=== PATIENT | female | born 1965 | race Caucasian/White ===

== ENCOUNTER 2016-05-04 12:54 | Emergency (ER) | payer MEDICAID ==
[2016-05-04] MEDS ORDERED: DEXAMETHASONE 10 MG/ML VIAL PO STA (13:35)
[2016-05-04] MEDS ORDERED: CHERRY SYRUP 10 ML UDC PO ONE (13:36)
[2016-05-04] MEDS ORDERED: DEXAMETHASONE 10 MG/ML VIAL ONE (13:36)
== END 2016-05-04 13:56 | disposition home or self-care (01) ==
DX: J06.9 Acute upper respiratory infection, unspecified (principal)
CPT/HCPCS: 99283; A9270

== ENCOUNTER 2016-05-28 16:15 | Outpatient (CLI) | payer MEDICAID | END 2016-05-28 16:16 | disposition home or self-care (01) | DX: R60.0 Localized edema (principal); M25.571 Pain in right ankle and joints of right foot ==

== ENCOUNTER 2016-11-29 08:00 | Outpatient (CLI) | payer MEDICAID | END 2016-11-29 08:01 | disposition home or self-care (01) | LOC: LAB.R 08:00 | PROVIDERS: ATTEND Obstetrics & Gynecology | DX: N76.0 Acute vaginitis (principal) | CPT/HCPCS: 87480; 87510; 87660 ==

== ENCOUNTER 2016-12-18 10:28 | Outpatient (CLI) | payer MEDICAID ==
[2016-12-18 10:52] LABS: BASOPHILS % (AUTO) 0.9 %; EOSINOPHILS # (AUTO) 0.2 10^3/uL (0.0-0.7); EOSINOPHILS % (AUTO) 4.6 %; HCT - HEMATOCRIT 38.5 % (37.0-47.0); HGB - HEMOGLOBIN 13.2 g/dL (12.0-16.0); LYMPHOCYTES # (AUTO) 1.8 10^3/uL (1.5-3.5); LYMPHOCYTES % (AUTO) 43.5 %; MEAN CORPUSCULAR HEMOGLOBIN 31.4 pg (27.0-31.0); MEAN CORPUSCULAR HGB CONC 34.3 g/dL (32.0-36.0); MEAN CORPUSCULAR VOLUME 91.5 fL (81.0-99.0); MEAN PLATELET VOLUME 7.5 fL (7.9-10.8); MONOCYTES # (AUTO) 0.5 10^3/uL (0.0-1.0); NEUTROPHILS # (AUTO) 1.6 10^3/uL (1.5-6.6); NUCLEATED RED BLOOD CELLS AUTO 0.1 /100WBC; RED BLOOD COUNT 4.21 10^6/uL (4.20-5.40); UNCORRECTED WHITE BLOOD COUNT 4.2 x10^3/uL; WHITE BLOOD COUNT 4.2 x10^3/uL (4.8-10.8)
[2016-12-18 11:14] LABS: ALBUMIN/GLOBULIN RATIO 1.2 (1.0-2.2); BILIRUBIN,TOTAL 0.4 mg/dL (0.2-1.0); BUN - BLOOD UREA NITROGEN 14 mg/dL (6-20); CALCIUM 9.5 mg/dL (8.5-10.3); CARBON DIOXIDE - CO2 28 mmol/L (21-32); CHLORIDE 104 mmol/L (101-111); CREATININE 0.7 mg/dL (0.4-1.0); GFR - MDRD 88 (>89); GLUCOSE 95 mg/dL (70-100); POTASSIUM 4.2 mmol/L (3.5-5.0); SODIUM 139 mmol/L (135-145); TOTAL PROTEIN 7.5 g/dL (6.7-8.2)
== END 2016-12-18 10:29 | disposition home or self-care (01) ==
LOC: LAB 10:28
PROVIDERS: ATTEND Nurse Practitioner Family
DX: M79.602 Pain in left arm (principal)
CPT/HCPCS: 36415; 80053; 85025; 85651; 86140

== ENCOUNTER 2016-12-18 10:35 | Outpatient (CLI) | payer MEDICAID ==
--- NOTE | 2016-12-18 16:25 | XRAY Report ---
TWO VIEW LEFT SHOULDER: 12/18/2016 CLINICAL INDICATION: Pain. FINDINGS: Oblique and scapular Y views of the left shoulder demonstrate mild degenerative changes of the glenohumeral and acromioclavicular joints. There is no evidence of acute fracture or dislocation . No radiopaque foreign body is seen in the soft tissues. IMPRESSION: MILD GLENOHUMERAL OSTEOARTHRITIS. :9 JOB #: [id number] EXT JOB #:[id number]
== END 2016-12-18 10:36 | disposition home or self-care (01) ==
LOC: DI 10:35
PROVIDERS: ATTEND Nurse Practitioner Family
DX: M19.012 Primary osteoarthritis, left shoulder (principal); M79.602 Pain in left arm
CPT/HCPCS: 36415; 80053; 85025; 85651; 86140

== ENCOUNTER 2016-12-19 16:56 | Outpatient (CLI) | payer MEDICAID ==
--- NOTE | 2016-12-20 10:23 | Ultrasound Report ---
PELVIC ULTRASOUND: 12/19/2016 CLINICAL INDICATION: Pain. COMPARISON: 02/24/2015 TECHNIQUE: Transabdominal pelvic ultrasound performed for global evaluation. Real-time scanning per formed and static images obtained. FINDINGS: Examination is limited, as the patient was unable to fill her bladder and could not tolera te transvaginal scanning. The uterus is anteverted, measuring 7.1 x 4.5 x 3.6 cm. The endometrial e cho complex could not be defined transabdominally. The previously noted leiomyomas are not visualize d transabdominally. The ovaries were not visualized. No free fluid is noted. IMPRESSION: LIMITED PELVIC ULTRASOUND. JOB #: [id number] EXT JOB #:[id number]
== END 2016-12-19 16:57 | disposition home or self-care (01) ==
LOC: DI 16:56
PROVIDERS: ATTEND Obstetrics & Gynecology
DX: R10.2 Pelvic and perineal pain (principal)
CPT/HCPCS: 76856

== ENCOUNTER 2017-02-10 12:34 | Emergency (ER) | payer MEDICAID ==
[2017-02-10 12:46] VITALS: BP 148/83
[2017-02-10 14:28] LABS: BASOPHILS % (AUTO) 0.8 %; EOSINOPHILS # (AUTO) 0.1 10^3/uL (0.0-0.7); EOSINOPHILS % (AUTO) 3.1 %; HGB - HEMOGLOBIN 12.9 g/dL (12.0-16.0); MEAN CORPUSCULAR HEMOGLOBIN 31.2 pg (27.0-31.0); MEAN CORPUSCULAR HGB CONC 33.9 g/dL (32.0-36.0); MEAN CORPUSCULAR VOLUME 92.1 fL (81.0-99.0); MEAN PLATELET VOLUME 7.2 fL (7.9-10.8); MONOCYTES # (AUTO) 0.4 10^3/uL (0.0-1.0); MONOCYTES % (AUTO) 9.1 %; NEUTROPHILS # (AUTO) 2.3 10^3/uL (1.5-6.6); RED BLOOD COUNT 4.13 10^6/uL (4.20-5.40); RED CELL DISTRIBUTION WIDTH 12.9 % (12.0-15.0); UNCORRECTED WHITE BLOOD COUNT 4.9 x10^3/uL; WHITE BLOOD COUNT 4.9 x10^3/uL (4.8-10.8)
[2017-02-10 14:40] LABS: ALBUMIN/GLOBULIN RATIO 1.2 (1.0-2.2); BILIRUBIN,TOTAL 0.4 mg/dL (0.2-1.0); CALCIUM 9.4 mg/dL (8.5-10.3); CREATININE 0.9 mg/dL (0.4-1.0); POTASSIUM 3.9 mmol/L (3.5-5.0); TOTAL PROTEIN 7.9 g/dL (6.7-8.2)
--- NOTE | 2017-02-10 15:06 | ED Physician Documentation ---
History of Present Illness - Stated complaint Stated Complaint: LEAKING BLADDER - Chief complaint Chief Complaint: General - History obtained from History obtained from: Patient - History of Present Illness Timing: How many weeks ago (several) Pain level max: 5 Pain level now: 5 Improved by: nothing Worsened by: nothing - Additonal information Additional information: Patient is a 51-year-old female who presents to the emergency department with diffuse lower abdominal pain and pressure. This been ongoing for several weeks. Has been seen as an outpatient for this, with no cause identified. She states that approximately 1 week ago, noticed that she was having a small amount of urine leakage from the bladder and dysuria. No fevers. No vomiting. Review of Systems Ten Systems: 10 systems reviewed and negative Constitutional: denies: Fever, Chills Ears: denies: Ear pain Nose: denies: Rhinorrhea / runny nose, Congestion Throat: denies: Sore throat Cardiac: denies: Chest pain / pressure Respiratory: denies: Cough GI: denies: Abdominal Pain, Abdominal Swelling, Nausea, Vomiting, Diarrhea : reports: Dysuria, Frequency, Hesitancy. 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, Other - Present Medications Home Medications: Ambulatory Orders Medication Instructions Recorded Confirmed Cephalexin [Keflex] 500 mg PO Q6H #28 capsule 02/10/17 - Allergies Allergies/Adverse Reactions: Allergies Allergy/AdvReac Type Severity Reaction Status Date / Time morphine Allergy Intermediate Rash Verified 02/10/17 12:46 azithromycin Allergy Mild Nausea Verified 02/10/17 12:46 [From Zithromax Z-Cordell] Sulfa (Sulfonamide Allergy Rash Verified 02/10/17 12:46 Antibiotics) - Social History Does the pt smoke?: No Smoking Status: Never smoker Does the pt drink ETOH?: No Does the pt have substance abuse?: No - Immunizations Immunizations are current?: Yes - POLST Patient has POLST: No PD ED PE NORMAL - Vitals Vital signs reviewed: Yes - General General: Alert and oriented X 3, No acute distress, Well developed/nourished - HEENT HEENT: PERRL, Moist mucous membranes - Neck Neck: Supple, no meningeal sign - Cardiac Cardiac: RRR, Strong equal pulses - Respiratory Respiratory: No respiratory distress, Clear bilaterally - Abdomen Abdomen: Soft, Non tender, Non distended - Female Female : Pt declined - Back Back: No CVA TTP, No spinal TTP - Derm Derm: Warm and dry, No rash - Neuro Neuro: Alert and oriented X 3 - Psych Psych: Normal mood, Normal affect Results - Vitals Vitals: Vital Signs - 24 hr 02/10/17 12:39 Temperature 36.6 C Heart Rate 65 Respiratory 16 Rate Blood Pressure 148/83 H O2 Saturation 98 Oxygen O2 Source Room air - Labs Labs: Laboratory Tests 02/10/17 02/10/17 02/10/17 14:20 14:20 14:35 WBC 4.9 RBC 4.13 L Hgb 12.9 Hct 38.0 MCV 92.1 MCH 31.2 H MCHC 33.9 RDW 12.9 Plt Count 208 MPV 7.2 L Neut # 2.3 Lymph # 2.0 Nye # 0.4 Eos # 0.1 Baso # 0.0 Absolute Nucleated RBC 0.00 Nucleated RBC % 0.0 Sodium 137 Potassium 3.9 Chloride 102 Carbon Dioxide 27 Anion Gap 8.0 BUN 13 Creatinine 0.9 Estimated GFR (MDRD) 65 L Glucose 93 Calcium 9.4 Total Bilirubin 0.4 AST 21 ALT 14 Alkaline Phosphatase 109 Total Protein 7.9 Albumin 4.3 Globulin 3.6 Albumin/Globulin Ratio 1.2 Lipase 38 Urine Color YELLOW Urine Clarity CLEAR Urine pH 6.0 Ur Specific [place] <=1.005 Urine Protein NEGATIVE Urine Glucose (UA) NEGATIVE Urine Ketones NEGATIVE Urine Occult Blood NEGATIVE Urine Nitrite NEGATIVE Urine Bilirubin NEGATIVE Urine Urobilinogen 0.2 (NORMAL) Ur Leukocyte Esterase MODERATE H Urine RBC 0-5 Urine WBC 6-10 H Ur Squamous Epith Cells FEW Squamous Urine Bacteria Few Ur Microscopic Review INDICATED Urine Culture Comments INDICATED Urine HCG, Qual NEGATIVE PD MEDICAL DECISION MAKING - ED course Complexity details: reviewed results, re-evaluated patient, considered differential, d/w patient, d/w sediment remediation consultant (Dr. Cary - recommends outpatient follow up.) ED course: Patient presents to the emergency department with ongoing pelvic pressure, appears to have UTI. Will treat her for this. We will have her follow-up with gynecology for further evaluation as she is currently being evaluated by them for this. Patient is well-appearing, nontoxic. Afebrile. Patient counseled regarding signs and symptoms for which I believe and urgent re-evaluation would be necessary. Patient with good understanding of and agreement to plan and is comfortable going home at this time This document was made in part using voice recognition software. While efforts are made to proofread this document, sound alike and grammatical errors may occur. Departure - Departure Disposition: Home, Self Care Clinical Impression: UTI (urinary tract infection) Qualifiers: Urinary tract infection type: acute cystitis Hematuria presence: without hematuria Qualified Code(s): N30.00 - Acute cystitis without hematuria Condition: Good Instructions: ED UTI Cystitis Female Follow-Up: Sosa Pryor ARNP [Primary Care Provider] - Prescriptions: Cephalexin [Keflex] 500 mg PO Q6H #28 capsule Comments: Take all antibioitcs until gone. Return if you wrosen. Discharge Date/Time: 02/10/17 16:14
[2017-02-10 15:15] LABS: BILIRUBIN,URINE NEGATIVE (NEGATIVE)
[2017-02-10 15:19] LABS: HCG UR QUAL NEGATIVE; UA w/ MICROSCOPIC CHARGE YES
[2017-02-10 15:27] LABS: UR CULTURE IF IND INDICATED
== END 2017-02-10 16:14 | disposition home or self-care (01) ==
LOC: ED 12:34
DX: N30.00 Acute cystitis without hematuria (principal)
CPT/HCPCS: 36415; 80053; 81001; 81003; 81025; 83690; 85025; 87086; 99283

== ENCOUNTER 2017-02-21 08:00 | Outpatient (CLI) | payer MEDICAID | END 2017-02-21 08:01 | disposition home or self-care (01) | LOC: LAB.R 08:00 | PROVIDERS: ATTEND Nurse Practitioner Family | DX: N39.0 Urinary tract infection, site not specified (principal) | CPT/HCPCS: 87086 ==

== ENCOUNTER 2017-03-13 14:35 | Outpatient (CLI) | payer MEDICAID ==
[2017-03-13 17:29] LABS: BILIRUBIN,URINE NEGATIVE (NEGATIVE)
[2017-03-13 18:07] LABS: UR CULTURE IF IND NOT INDICATED; WBC,URINE 0-3 /HPF (0-5)
== END 2017-03-13 14:36 | disposition home or self-care (01) ==
LOC: LAB.R 14:35
PROVIDERS: ATTEND Nurse Practitioner Family
DX: N39.0 Urinary tract infection, site not specified (principal)
CPT/HCPCS: 81001; 87086

== ENCOUNTER 2017-07-15 19:36 | Outpatient (CLI) | payer MEDICAID ==
--- NOTE | 2017-07-16 15:16 | XRAY Report ---
LEFT SHOULDER: 07/15/2017 HISTORY: Left shoulder pain, new numbness and tingling radiating down the left arm. COMPARISON: 12/18/2016 left shoulder x-rays. FINDINGS: Minor degenerative change glenohumeral and acromioclavicular joint, similar to prior. No new fracture, malalignment, soft tissue calcification or other abnormality. Included portions of the left chest are unremarkable. IMPRESSION: STABLE LEFT SHOULDER COMPARED WITH 12/18/2016. MINOR DEGENERATIVE CHANGES ARE AGAIN NOTED. TD: 07/16/2017 15:15 MIGEL
== END 2017-07-15 19:37 | disposition home or self-care (01) ==
LOC: DI 19:36
PROVIDERS: ATTEND Nurse Practitioner Family
DX: M19.012 Primary osteoarthritis, left shoulder (principal)

== ENCOUNTER 2017-07-25 18:24 | Emergency (ER) | payer MEDICAID ==
[2017-07-25] MEDS ORDERED: MELOXICAM 7.5 MG TABLET PO STA (19:44)
--- NOTE | 2017-07-25 19:47 | ED Physician Documentation ---
PD HPI UPPER EXT INJURY - Stated complaint Stated Complaint: LT ARM INJ - Chief complaint Chief Complaint: Ext Problem - History obtained from History obtained from: Patient - History of Present Illness Location: Other (51-year-old woman who lifted something with her left arm couple of weeks ago and has had persistent pain of the left shoulder since. She was seen in clinic and had x-rays showing some degenerative changes but no fracture. She feels like it is warm on the shoulder and she was told to come to the ER if she developed a fever. 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, Other - Present Medications Home Medications: Ambulatory Orders Medication Instructions Recorded Confirmed Cephalexin [Keflex] 500 mg PO Q6H #28 capsule 02/10/17 Meloxicam [Mobic] 7.5 mg PO BIDWM PRN #15 tablet 07/25/17 - Allergies Allergies/Adverse Reactions: Allergies Allergy/AdvReac Type Severity Reaction Status Date / Time morphine Allergy Intermediate Rash Verified 02/10/17 12:46 azithromycin Allergy Mild Nausea Verified 02/10/17 12:46 [From Zithromax Z-Cordell] Sulfa (Sulfonamide Allergy Rash Verified 02/10/17 12:46 Antibiotics) - Social History Does the pt smoke?: No Smoking Status: Never smoker Does the pt drink ETOH?: No Does the pt have substance abuse?: No - Immunizations Immunizations are current?: Yes - POLST Patient has POLST: No PD ED PE NORMAL - Vitals Vital signs reviewed: Yes - General General: Alert and oriented X 3, No acute distress - Extremities Extremities: Other (Left shoulders full range of motion and nontender, there is no warmth or redness.) - Neuro Neuro: Alert and oriented X 3, Normal speech Results - Vitals Vitals: Vital Signs - 24 hr 07/25/17 18:45 Temperature 36.8 C Heart Rate 67 Respiratory 15 Rate Blood Pressure 150/107 H O2 Saturation 100 Oxygen O2 Source Room air PD MEDICAL DECISION MAKING - ED course ED course: 51-year-old woman with left shoulder pain, she is specifically worried about infection but there is no evidence of this on examination. Departure - Departure Disposition: Home, Self Care Clinical Impression: Left shoulder pain Qualifiers: Chronicity: acute Qualified Code(s): M25.512 - Pain in left shoulder Condition: Good Record reviewed to determine appropriate education?: Yes Instructions: ED Shoulder Pain [facility] Prescriptions: Meloxicam [Mobic] 7.5 mg PO BIDWM PRN #15 tablet PRN Reason: Pain Comments: Do not wear the sling for more than a couple of days, do range of motion exercises as shown. Return if worse. Follow-up with your doctor for physical therapy as directed.
[2017-07-25 20:10] VITALS: BP 129/87
== END 2017-07-25 20:09 | disposition home or self-care (01) ==
LOC: ED 18:24
DX: M25.512 Pain in left shoulder (principal)
CPT/HCPCS: 99283; A9270

== ENCOUNTER 2017-08-05 10:14 | Outpatient (CLI) | payer MEDICAID ==
[2017-08-05 10:30] LABS: BASOPHILS # (AUTO) 0.1 10^3/uL (0.0-0.1); BASOPHILS % (AUTO) 1.3 %; EOSINOPHILS # (AUTO) 0.2 10^3/uL (0.0-0.7); EOSINOPHILS % (AUTO) 5.5 %; HGB - HEMOGLOBIN 13.2 g/dL (12.0-16.0); LYMPHOCYTES # (AUTO) 1.5 10^3/uL (1.5-3.5); LYMPHOCYTES % (AUTO) 37.9 %; MEAN CORPUSCULAR HEMOGLOBIN 31.8 pg (27.0-31.0); MEAN CORPUSCULAR HGB CONC 34.5 g/dL (32.0-36.0); MEAN CORPUSCULAR VOLUME 92.1 fL (81.0-99.0); MEAN PLATELET VOLUME 7.3 fL (7.9-10.8); MONOCYTES # (AUTO) 0.4 10^3/uL (0.0-1.0); MONOCYTES % (AUTO) 9.7 %; NEUTROPHILS # (AUTO) 1.9 10^3/uL (1.5-6.6); NEUTROPHILS % (AUTO) 45.6 %; PLT - PLATELET COUNT 203 10^3/uL (130-450); RED BLOOD COUNT 4.15 10^6/uL (4.20-5.40); WHITE BLOOD COUNT 4.1 x10^3/uL (4.8-10.8)
== END 2017-08-05 10:15 | disposition home or self-care (01) ==
LOC: LAB 10:14
PROVIDERS: ATTEND Nurse Practitioner Family
DX: M25.512 Pain in left shoulder (principal)
CPT/HCPCS: 36415; 85025; 85651; 86140

== ENCOUNTER 2017-09-19 16:11 | Outpatient (CLI) | payer MEDICAID ==
--- NOTE | 2017-09-20 13:22 | MRI Report ---
EXAM: LEFT SHOULDER MRI WITHOUT CONTRAST EXAM DATE: 09/19/2017 04:56 PM. CLINICAL HISTORY: Chronic left shoulder pain. COMPARISON: X-ray 07/15/2017. TECHNIQUE: Multiplanar, multisequence T1-weighted and fluid-sensitive sequences of the shoulder witho ut contrast. Other: None. FINDINGS: Acromioclavicular Region: The acromion is type II. Mild acromioclavicular joint osteoarthritis.Modera te sized bursal effusion. Glenohumeral Region: No subluxation. No effusion or loose bodies. The articular cartilage is unremark able. Bone Marrow: No fracture, marrow edema or bone lesions. Labrum: The labrum is unremarkable on this nonarthrographic study. Musculature/Rotator Cuff: Thickening and increased T2 signal in supraspinatus consistent with tendino sis. Similar findings in infraspinatus. Mild subscapularis tendinosis with a partial-thickness tear o f the deep fibers at the musculotendinous junction measuring approximately 4 x 4 mm. No edema or fatt y atrophy. There are small cysts in the greater tuberosity at the attachment of the rotator cuff. Biceps Tendon: The long head of the biceps tendon and biceps jean claude are intact. Other: The subcutaneous tissues are unremarkable. IMPRESSION: 1. Fluid in the subacromial bursa consistent with bursitis. 2. Moderate supraspinatus and infraspinatus tendinosis. 3. Partial-thickness tear of subscapularis. [facility] MUSCULOSKELETAL RADIOLOGY SECTION Referring Provider Line: [phone] SITE ID: [id number]
== END 2017-09-19 16:12 | disposition home or self-care (01) ==
LOC: DI 16:11
PROVIDERS: ATTEND Orthopaedic Surgery
DX: S46.012A Strain of muscle(s) and tendon(s) of the rotator cuff of left shoulder, initial encounter (principal); M75.92 Shoulder lesion, unspecified, left shoulder; M25.412 Effusion, left shoulder

== ENCOUNTER 2018-01-07 10:14 | Outpatient (CLI) | payer MEDICAID ==
[2018-01-07 11:28] LABS: HB2 TOTAL 13.9 g/dL; HEMOGLOBIN A1C 0.5 g/dL; HEMOGLOBIN A1C % 5.4 % (4.6-6.2)
== END 2018-01-07 10:15 | disposition home or self-care (01) ==
LOC: LAB 10:14
PROVIDERS: ATTEND Obstetrics & Gynecology
DX: M79.643 Pain in unspecified hand (principal)
CPT/HCPCS: 36415; 82947; 83036

== ENCOUNTER 2018-01-09 10:47 | Outpatient (CLI) | payer MEDICAID | END 2018-01-09 10:48 | disposition home or self-care (01) | LOC: LAB.R 10:47 | PROVIDERS: ATTEND Nurse Practitioner Obstetrics & Gynecology | DX: Z11.3 Encounter for screening for infections with a predominantly sexual mode of transmission (principal) | CPT/HCPCS: 87491; 87591 ==

== ENCOUNTER 2018-04-21 11:12 | Emergency (ER) | payer MEDICAID ==
[2018-04-21 11:19] VITALS: BP 147/96
--- NOTE | 2018-04-21 12:32 | XRAY Report ---
Reason: 5th digit jammed in door Procedure Date: 04/21/2018 Accession Number: [id number] / [id number] Procedure: XR - Finger(s) LT CPT Code: FULL RESULT: EXAM: LEFT FIFTH DIGIT RADIOGRAPHY EXAM DATE: 04/21/2018 12:07 PM. CLINICAL HISTORY: 5th digit jammed in door. COMPARISON: None. TECHNIQUE: 3 views. FINDINGS: Acute swan neck deformity of the fifth finger about the proximal interphalangeal joint with an osseous donor fragment along the volar side as well as lateral subluxation of the distal fragment and fracture of the distal aspect of the proximal fifth phalanx likely with intra-articular extension. IMPRESSION: Complex intra-articular fracture of the fifth left finger, likely associated ligament/tendon injury. [facility] The above findings of fifth finger fracture were discussed with ED Physician Sascha by Dr. David Nice at 12:30 hrs on 04/21/18.
[2018-04-21] MEDS ORDERED: IBUPROFEN 800 MG TABLET PO STA (12:51)
--- NOTE | 2018-04-21 12:51 | ED Physician Documentation ---
PD HPI UPPER EXT INJURY - Stated complaint Stated Complaint: L PINKY INJ - Chief complaint Chief Complaint: Ext Problem - History obtained from History obtained from: Patient - History of Present Illness Location: Left, Finger (5th) Type of injury: Other (jammed in car door) Timing - onset: Yesterday Timing - duration: Days (1) Timing - details: Abrupt onset Pain level max: 8 Pain level now: 8 Improved by: Rest, Ice, Immobilization Worsened by: Moving, Palpating Associated symptoms: Swelling. 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 HEENT: None Psych: Anxiety Musculoskeletal: None Derm: None - Past Surgical History Past Surgical History: Yes General: Hiatal hernia repair 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: 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, 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, Other - Present Medications Home Medications: Ambulatory Orders Medication Instructions Recorded Confirmed Cephalexin [Keflex] 500 mg PO Q6H #28 capsule 02/10/17 Meloxicam [Mobic] 7.5 mg PO BIDWM PRN #15 tablet 07/25/17 - Allergies Allergies/Adverse Reactions: Allergies Allergy/AdvReac Type Severity Reaction Status Date / Time morphine Allergy Intermediate Rash Verified 02/10/17 12:46 azithromycin Allergy Mild Nausea Verified 02/10/17 12:46 [From Zithromax Z-Cordell] Sulfa (Sulfonamide Allergy Rash Verified 02/10/17 12:46 Antibiotics) - Social History Does the pt smoke?: No Smoking Status: Never smoker Does the pt drink ETOH?: No Does the pt have substance abuse?: No - Immunizations Immunizations are current?: Yes - POLST Patient has POLST: No PD ED PE NORMAL - Vitals Vital signs reviewed: Yes - General General: Alert and oriented X 3, No acute distress - Derm Derm: Warm and dry - Extremities Extremities: Other (L 5th digit - diffuse swelling, TTP over the PIP joint. FROM present, but with pain. NVI) - Neuro Neuro: Alert and oriented X 3 - Psych Psych: Normal mood, Normal affect Results - Vitals Vitals: Vital Signs - 24 hr 04/21/18 11:15 Temperature 35.5 C L Heart Rate 72 Respiratory 18 Rate Blood Pressure 147/96 H O2 Saturation 97 Oxygen O2 Source Room air - Rads (name of study) L finger xray Radiology: Prelim report reviewed, EMP read contemporaneously, See rad report (Complex intra-articular fracture of the fifth left finger, likely associated ligament/tendon injury. ) PD MEDICAL DECISION MAKING - ED course Complexity details: reviewed results, re-evaluated patient, considered differential, d/w patient ED course: 52-year-old female with a left fifth digit fracture. Placed in a splint. Tolerated well. Neurovascular intact. Informed that she may have ligamentous or tendon damage and will need a repeat evaluation after the swelling has decreased. Patient counseled regarding signs and symptoms for which I believe and urgent re-evaluation would be necessary. Patient with good understanding of and agreement to plan and is comfortable going home at this time This document was made in part using voice recognition software. While efforts are made to proofread this document, sound alike and grammatical errors may occur. Departure - Departure Disposition: 01 Home, Self Care Clinical Impression: Finger fracture, left Qualifiers: Encounter type: initial encounter Finger: little finger Fracture type: closed Phalanx: unspecified phalanx Fracture alignment: nondisplaced Qualified Code(s): S62.607A - Fracture of unspecified phalanx of left little finger, initial encounter for closed fracture Condition: Good Instructions: ED Fx Finger Closed Follow-Up: Sosa Pryor ARNP [Primary Care Provider] - Within 1 week [facility] [Provider Group] - Within 1 week Comments: Return if you worsen. You may have ligament damage as well and should follow up with orthopedics. Keep the splint on until released by orthopedics Discharge Date/Time: 04/21/18 13:04
== END 2018-04-21 13:04 | disposition home or self-care (01) ==
LOC: ED 11:12
DX: S62.607A Fracture of unspecified phalanx of left little finger, initial encounter for closed fracture (principal); W23.0XXA Caught, crushed, jammed, or pinched between moving objects, initial encounter
CPT/HCPCS: 29130; 73140; 99282; 99283; A9270

== ENCOUNTER 2018-07-05 06:17 | Emergency (ER) | payer MEDICAID ==
[2018-07-05 06:26] VITALS: BP 185/102
[2018-07-05] MEDS ORDERED: DEXAMETHASONE 10 MG/ML VIAL PO STA (07:19)
--- NOTE | 2018-07-05 07:23 | ED Physician Documentation ---
PD HPI URI - Stated complaint Stated Complaint: DIFF BREATHING/SWALLOWING/TOOTH PX - Chief complaint Chief Complaint: Resp - History obtained from History obtained from: Patient - History of Present Illness Timing - onset: How many days ago (4) Timing duration: Days (4) Timing details: Still present Associated symptoms: Fever, Nasal congestion, Sore throat, Dry cough Contributing factors: Sick contact () Similar symptoms before: Has not had sx before - Treatment prior to arrival Treatment prior to arrival: Ibuprophen at 3am. - Additional information Additional information: The patient is a 52-year-old female who complains of sore throat for the past 4 days. It is worse at night, and she feels like she is gasping for air. She reports congestion, fever, nonproductive cough, headache, and myalgias. Her was sick with similar symptoms last week, and is currently getting better. The patient had a tooth infection for which she was on penicillin for 2 weeks. Last week she underwent extraction of the lower molar that was infected. Review of Systems Constitutional: reports: Fever, Chills, Myalgias Eyes: denies: Irritation Ears: denies: Ear pain Nose: reports: Congestion Throat: reports: Sore throat Cardiac: denies: Chest pain / pressure Respiratory: reports: Dyspnea, Cough GI: denies: Abdominal Pain, Nausea, Vomiting : denies: Dysuria Skin: denies: Rash Musculoskeletal: denies: Extremity swelling Neurologic: reports: Headache. 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, Other - Present Medications Home Medications: Ambulatory Orders Medication Instructions Recorded Confirmed Cephalexin [Keflex] 500 mg PO Q6H #28 capsule 02/10/17 Meloxicam [Mobic] 7.5 mg PO BIDWM PRN #15 tablet 07/25/17 - Allergies Allergies/Adverse Reactions: Allergies Allergy/AdvReac Type Severity Reaction Status Date / Time morphine Allergy Intermediate Rash Verified 02/10/17 12:46 azithromycin Allergy Mild Nausea Verified 02/10/17 12:46 [From Zithromax Z-Cordell] Sulfa (Sulfonamide Allergy Rash Verified 02/10/17 12:46 Antibiotics) - Social History Does the pt smoke?: No Smoking Status: Never smoker Does the pt drink ETOH?: Yes Does the pt have substance abuse?: No - Immunizations Immunizations are current?: Yes - POLST Patient has POLST: No PD ED PE NORMAL - Vitals Vital signs reviewed: Yes (hypertensive) - General General: Alert and oriented X 3, Well developed/nourished - HEENT HEENT: Atraumatic, Ears normal, Pharynx benign, Other (Right lower molar tooth extraction site healing as expected.) - Neck Neck: Supple, no meningeal sign, No adenopathy - Cardiac Cardiac: RRR, No murmur - Respiratory Respiratory: No respiratory distress, Clear bilaterally - Abdomen Abdomen: Soft, Non tender, Other (rotund abdomen) - Back Back: No CVA TTP - Derm Derm: No rash - Extremities Extremities: No edema, No calf tenderness / cord - Neuro Neuro: Alert and oriented X 3, No motor deficit, Normal speech Results - Vitals Vitals: Vital Signs - 24 hr 07/05/18 07/05/18 06:21 06:26 Temperature 36.6 C Heart Rate 84 84 Respiratory 18 Rate Blood Pressure 185/102 H O2 Saturation 99 Oxygen O2 Source Room air - Labs Labs: Laboratory Tests 07/05/18 07/05/18 06:46 06:46 Influenza A (Rapid) Negative Influenza B (Rapid) Negative Group A Strep Rapid Negative - Rads (name of study) CXR Radiology: Prelim report reviewed, EMP read contemporaneously, See rad report (No acute cardiopulmonary abnormality demonstrated.) PD MEDICAL DECISION MAKING - ED course Complexity details: reviewed old records, reviewed results, re-evaluated patient, considered differential, d/w patient, d/w family ED course: The patient's presentation is most consistent with viral upper respiratory infection. Her clinical presentation does not suggest meningitis, pneumonitis, otitis media, or acute pharyngitis. Strep screen and influenza swab are negative. Chest x-ray reveals no acute infiltrate or effusion. Treatment in the emergency department included administration of Dexamethasone 10 mg orally. I discussed with her and her the expected course of illness, symptomatic treatment and outpatient follow-up, as well as potentially worrisome signs or symptoms that should prompt reevaluation in the emergency department. Departure - Departure Disposition: 01 Home, Self Care Clinical Impression: Viral upper respiratory infection Condition: Stable Instructions: ED Upper Resp Infec No Abx Tx Follow-Up: [facility] [Provider Group] Comments: Your symptoms are most consistent with a viral upper respiratory infection. Antibiotics are not clinically indicated for this type of viral infection. Treatment should be geared toward managing symptoms: Drink plenty of fluids. Use Tylenol or ibuprofen as needed for fever or discomfort. Wash your hands frequently, and cover your cough. Follow up with your primary physician, or return to the emergency department, if not improving within 1-2 weeks. Return to the emergency department if you develop increasing difficulty breathing, or otherwise worsening symptoms.
--- NOTE | 2018-07-05 07:29 | XRAY Report ---
Reason: Cough Procedure Date: 07/05/2018 Accession Number: [id number] / [id number] Procedure: XR - Chest 2 View X-Ray CPT Code: 48749 FULL RESULT: EXAM: CHEST RADIOGRAPHY EXAM DATE: 07/05/2018 07:03 AM. CLINICAL HISTORY: Throat pain for 1 week, productive cough. COMPARISON: 05/09/2015 3:36 PM. TECHNIQUE: 2 views. FINDINGS: Lungs/Pleura: No focal opacities evident. No pleural effusion. No pneumothorax. Normal volumes. Mediastinum: Heart and mediastinal contours are unremarkable. Other: Right-sided chronic calcific rotator cuff tendinitis. IMPRESSION: No acute cardiopulmonary abnormality demonstrated. [facility]
== END 2018-07-05 08:06 | disposition home or self-care (01) ==
LOC: ED 06:17
DX: J06.9 Acute upper respiratory infection, unspecified (principal)
CPT/HCPCS: 71046; 87070; 87275; 87276; 87430; 99283

== ENCOUNTER 2018-07-14 15:20 | Emergency (ER) | payer MEDICAID ==
[2018-07-14 15:27] VITALS: BP 142/81
--- NOTE | 2018-07-14 15:38 | ED Physician Documentation ---
PD HPI UPPER EXT INJURY - Stated complaint Stated Complaint: LT FINGER INJ - Chief complaint Chief Complaint: Ext Problem - History obtained from History obtained from: Patient - History of Present Illness Location: Left, Finger (5th digit) Type of injury: Blunt / blow Where injury occurred: Home Timing - onset: How many days ago (3) Timing - duration: Days (3) Timing - details: Abrupt onset, Still present Improved by: Rest, Immobilization Worsened by: Moving, Palpating Associated symptoms: Swelling, Discolored. No: Weakness Contributing factors: No: Anticoagulated Similar symptoms before: Diagnosis (5th digit fracture that did not heal right.) Recently seen: Not recently seen - Additonal information Additional information: 52-year-old female has had an injury to her left fifth digit back in February and this did not heal properly. She has had some deformity to the finger and is been in physical therapy. She is struck this finger again about 3 days ago felt a crack to it and now has some increased swelling and discoloration. She tried to go back to physical therapy and the physical therapist asked her to come to the emergency department to get x-rays done. Review of Systems Constitutional: denies: Fever Eyes: denies: Decreased vision Ears: denies: Ear pain Nose: denies: Congestion Respiratory: denies: Cough GI: denies: Vomiting PD PAST MEDICAL HISTORY - Past Medical History Cardiovascular: None Respiratory: Pneumonia Neuro: None Endocrine/Autoimmune: None GI: None, Hiatal hernia FLARER: None : Frequency HEENT: None Psych: Anxiety Musculoskeletal: None Derm: None - Past Surgical History Past Surgical History: Yes General: Hiatal hernia repair Ortho: Other /FLARER: section, 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, Other - Present Medications Home Medications: Ambulatory Orders Medication Instructions Recorded Confirmed Cephalexin [Keflex] 500 mg PO Q6H #28 capsule 02/10/17 Meloxicam [Mobic] 7.5 mg PO BIDWM PRN #15 tablet 07/25/17 - Allergies Allergies/Adverse Reactions: Allergies Allergy/AdvReac Type Severity Reaction Status Date / Time morphine Allergy Intermediate Rash Verified 07/14/18 15:23 azithromycin Allergy Mild Nausea Verified 07/14/18 15:23 [From Zithromax Z-Cordell] Sulfa (Sulfonamide Allergy Rash Verified 07/14/18 15:23 Antibiotics) - Social History Does the pt smoke?: No Smoking Status: Never smoker Does the pt drink ETOH?: Yes Does the pt have substance abuse?: No - Immunizations Immunizations are current?: Yes - POLST Patient has POLST: No PD ED PE NORMAL - Vitals Vital signs reviewed: Yes (hypertensive ) - General General: Alert and oriented X 3, No acute distress, Well developed/nourished - HEENT HEENT: Atraumatic, PERRL, EOMI - Neck Neck: Supple, no meningeal sign - Respiratory Respiratory: No respiratory distress - Derm Derm: Normal color, Warm and dry, No rash - Extremities Extremities: Other (There is a deformity to the 5th digit at the PIP joint with ulnar deviation of the distal component. Distal n/v is intact ) - Neuro Neuro: Alert and oriented X 3, franchise consultant 2-12 intact, No motor deficit, No sensory deficit, Normal speech Eye Opening: Spontaneous Motor: Obeys Commands Verbal: Oriented GCS Score: 15 - Psych Psych: Normal mood, Normal affect Results - Vitals Vitals: Vital Signs - 24 hr 07/14/18 15:23 Temperature 36.6 C Heart Rate 87 Respiratory 16 Rate Blood Pressure 142/81 H O2 Saturation 95 Oxygen O2 Source Room air - Rads (name of study) fingers Radiology: Prelim report reviewed (Impression: No acute fracture identified. Hyperextension of the fifth proximal interphalangeal joint is similar in appearance.), EMP read indepedently, See rad report Procedures - Splint (location) left hand Splint applied by: Tech Type of splint: Fiberglass, Ulnar gutter Other: Patient tolerated well, No complications, Neurovascular intact, Good alignment PD MEDICAL DECISION MAKING - ED course Complexity details: reviewed results, re-evaluated patient, considered differential, d/w patient ED course: 52 y/o female with a left 5th digit injury with deformity after a fracture has re-injured her finger and there is no evidence for acute fracture. She is placed into an ulnar gutter splint and will follow up with ortho as planned. Departure - Departure Disposition: 01 Home, Self Care Clinical Impression: Sprain of little finger Qualifiers: Encounter type: initial encounter Sprain of finger site: interphalangeal joint Laterality: left Qualified Code(s): S63.637A - Sprain of interphalangeal joint of left little finger, initial encounter Condition: Stable Instructions: ED Sprain Finger Follow-Up: Siggard,Kipley J, MD [Primary Care Provider] -
[2018-07-14] MEDS: ACETAMINOPHEN 325 MG TABLET PO STA (15:42)
--- NOTE | 2018-07-14 16:06 | XRAY Report ---
Reason: 5th digit deformity Procedure Date: 07/14/2018 Accession Number: [id number] / [id number] Procedure: XR - Finger(s) LT CPT Code: FULL RESULT: EXAM: LEFT FIFTH DIGIT RADIOGRAPHY EXAM DATE: 07/14/2018 03:52 PM. CLINICAL HISTORY: 5th digit deformity. COMPARISON: FINGER(S) LT 04/21/2018 11:42 AM. TECHNIQUE: 3 views. FINDINGS: No acute fracture identified. No healing changes. There is hyperextension at the fifth proximal interphalangeal joint and mild flexion at the fifth distal interphalangeal joint, similar to prior. Severe PIP joint space narrowing with osteophyte formation. No dislocation. IMPRESSION: No acute fracture identified. Hyperextension of the fifth proximal interphalangeal joint is similar in appearance. RADIA
== END 2018-07-14 17:03 | disposition home or self-care (01) ==
LOC: ED 15:20
DX: S63.637A Sprain of interphalangeal joint of left little finger, initial encounter (principal); W22.8XXA Striking against or struck by other objects, initial encounter; Y92.009 Unspecified place in unspecified non-institutional (private) residence as the place of occurrence of the external cause
CPT/HCPCS: 29125; 73140; 99282; 99283

== ENCOUNTER 2018-08-25 17:48 | Outpatient (CLI) | payer MEDICAID ==
[2018-08-25 18:11] LABS: BASOPHILS % (AUTO) 0.6 %; EOSINOPHILS # (AUTO) 0.2 10^3/uL (0.0-0.7); EOSINOPHILS % (AUTO) 4.4 %; HGB - HEMOGLOBIN 12.8 g/dL (12.0-16.0); LYMPHOCYTES # (AUTO) 1.6 10^3/uL (1.5-3.5); LYMPHOCYTES % (AUTO) 35.2 %; MEAN CORPUSCULAR HEMOGLOBIN 31.6 pg (27.0-31.0); MEAN CORPUSCULAR HGB CONC 33.2 g/dL (32.0-36.0); MEAN CORPUSCULAR VOLUME 95.1 fL (81.0-99.0); MEAN PLATELET VOLUME 7.2 fL (7.9-10.8); MONOCYTES # (AUTO) 0.4 10^3/uL (0.0-1.0); MONOCYTES % (AUTO) 7.9 %; NEUTROPHILS # (AUTO) 2.4 10^3/uL (1.5-6.6); NEUTROPHILS % (AUTO) 51.9 %; PLT - PLATELET COUNT 216 10^3/uL (130-450); RED BLOOD COUNT 4.06 10^6/uL (4.20-5.40); RED CELL DISTRIBUTION WIDTH 12.8 % (12.0-15.0); WHITE BLOOD COUNT 4.6 x10^3/uL (4.8-10.8)
== END 2018-08-25 17:49 | disposition home or self-care (01) ==
LOC: LAB 17:48
PROVIDERS: ATTEND Nurse Practitioner
DX: J32.9 Chronic sinusitis, unspecified (principal)
CPT/HCPCS: 36415; 85025

== ENCOUNTER 2018-11-24 10:16 | Emergency (ER) | payer MEDICAID ==
[2018-11-24] MEDS ORDERED: SODIUM CHLORIDE 0.9% 1,000 ML IV ONE (10:50)
--- NOTE | 2018-11-24 10:53 | ED Physician Documentation ---
History of Present Illness - Stated complaint Stated Complaint: FEVER/WEAKNESS - Chief complaint Chief Complaint: General - History obtained from History obtained from: Patient - History of Present Illness Timing: How many weeks ago (1) Pain level max: 4 Pain level now: 3 Improved by: nothing Worsened by: nothing - Additonal information Additional information: Patient is a 53-year-old female who states that she has been having generalized weakness for the past week. She states that she is having fevers at home, but states that her body temperature has actually been low with a T-max of 97.5. She states that she had a tooth pulled 2 months ago on the right lower mandible. She states she was supposed to see someone about her sinuses, but never followed up. She states she does have some sinus congestion. No coughing. 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 She states that "she does not know what is going on". She states that she just does not feel well and feels very weak. Review of Systems Ten Systems: 10 systems reviewed and negative Constitutional: denies: Chills, Myalgias Ears: denies: Ear pain Nose: reports: Congestion. denies: Sinus pressure / pain Throat: denies: Dental pain / toothache, Sore throat Cardiac: denies: Chest pain / pressure Respiratory: denies: Dyspnea, Cough, Wheezing GI: denies: Vomiting, Diarrhea : denies: Dysuria, Frequency, Hesitancy Skin: denies: Rash Musculoskeletal: reports: Extremity pain (Left shoulder pain is chronic and un changed). 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 : Frequency HEENT: None Psych: Anxiety Musculoskeletal: None Derm: None - Past Surgical History Past Surgical History: Yes General: Hiatal hernia repair Ortho: Other /CONTENT DEVELOPER: section, 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, Other - Present Medications Home Medications: Ambulatory Orders Medication Instructions Recorded Confirmed Cephalexin [Keflex] 500 mg PO Q6H #28 capsule 02/10/17 Meloxicam [Mobic] 7.5 mg PO BIDWM PRN #15 tablet 07/25/17 Amox/Clav 875/125 [Augmentin] 1 each PO Q12H #20 tablet 11/24/18 - Allergies Allergies/Adverse Reactions: Allergies Allergy/AdvReac Type Severity Reaction Status Date / Time morphine Allergy Intermediate Rash Verified 11/24/18 10:23 azithromycin Allergy Mild Nausea Verified 11/24/18 10:23 [From Zithromax Z-Cordell] Sulfa (Sulfonamide Allergy Rash Verified 11/24/18 10:23 Antibiotics) - Social History Does the pt smoke?: No Smoking Status: Never smoker Does the pt drink ETOH?: Yes Does the pt have substance abuse?: No - Immunizations Immunizations are current?: Yes - POLST Patient has POLST: No PD ED PE NORMAL - Vitals Vital signs reviewed: Yes - General General: Alert and oriented X 3, No acute distress, Well developed/nourished - HEENT HEENT: Atraumatic, PERRL, Ears normal, Moist mucous membranes, Pharynx benign, Other (The side of her pulled tooth appears without infection. No swelling. Mild tenderness over the frontal sinuses) - Neck Neck: Supple, no meningeal sign, No bony TTP - Cardiac Cardiac: RRR, No murmur, Strong equal pulses - Respiratory Respiratory: No respiratory distress, Clear bilaterally - Abdomen Abdomen: Normal bowel sounds, Soft, Non tender, Non distended - Back Back: No spinal TTP - Derm Derm: Warm and dry, No rash - Extremities Extremities: No deformity, No tenderness to palpate, Normal ROM s pain, Other (Moving the left shoulder well. No redness. No swelling. No signs of infection.) - Neuro Neuro: Alert and oriented X 3, privacy attorney 2-12 intact, No motor deficit, No sensory deficit, Normal speech - Psych Psych: Normal mood, Normal affect Results - Vitals Vitals: Vital Signs - 24 hr 11/24/18 11/24/18 10:20 12:42 Temperature 36.4 C L 36.6 C Heart Rate 65 63 Respiratory 19 19 Rate Blood Pressure 190/105 H 150/96 H O2 Saturation 98 98 Oxygen O2 Source Room air - Labs Labs: Laboratory Tests 11/24/18 11/24/18 11/24/18 11:04 11:04 11:24 WBC 4.1 L RBC 4.10 L Hgb 12.9 Hct 39.1 MCV 95.4 MCH 31.5 H MCHC 33.0 RDW 12.6 Plt Count 187 MPV 9.1 Neut # (Auto) 2.1 Lymph # (Auto) 1.4 L [place] # (Auto) 0.4 Eos # (Auto) 0.1 Baso # (Auto) 0.0 Absolute Nucleated RBC 0.00 Nucleated RBC % 0.0 Sodium 140 Potassium 4.1 Chloride 104 Carbon Dioxide 24 Anion Gap 12.0 BUN 17 Creatinine 0.7 Estimated GFR (MDRD) 87 L Glucose 92 Calcium 9.5 Total Bilirubin 0.6 AST 19 ALT 13 Alkaline Phosphatase 84 Total Protein 7.5 Albumin 3.8 Globulin 3.7 Albumin/Globulin Ratio 1.0 Lipase 50 Urine Color YELLOW Urine Clarity CLEAR Urine pH 5.5 Ur Specific [place] <=1.005 Urine Protein NEGATIVE Urine Glucose (UA) NEGATIVE Urine Ketones NEGATIVE Urine Occult Blood NEGATIVE Urine Nitrite NEGATIVE Urine Bilirubin NEGATIVE Urine Urobilinogen 0.2 (NORMAL) Ur Leukocyte Esterase NEGATIVE Ur Microscopic Review NOT INDICATED Urine Culture Comments NOT INDICATED PD MEDICAL DECISION MAKING - ED course Complexity details: reviewed results, re-evaluated patient, considered differential, d/w patient ED course: Unclear etiology of her symptoms. We will trial her on antibiotics for possible sinus infection versus dental infection? We will follow-up with her PCP and dentist for further care. No acute laboratory abnormalities. Patient counseled regarding signs and symptoms for which I believe and urgent re-evaluation would be necessary. Patient with good understanding of and agreement to plan and is comfortable going home at this time This document was made in part using voice recognition software. While efforts are made to proofread this document, sound alike and grammatical errors may occur. Departure - Departure Disposition: 01 Home, Self Care Clinical Impression: Sinus infection Qualifiers: Sinusitis location: unspecified location Chronicity: acute Recurrence: non- recurrent Qualified Code(s): J01.90 - Acute sinusitis, unspecified Condition: Good Instructions: ED Sinusitis Abx Tx Follow-Up: Daina Stern DNP [Primary Care Provider] - Within 1 week Prescriptions: Amox/Clav 875/125 [Augmentin] 1 each PO Q12H #20 tablet Comments: Take all antibiotics until gone. Return if you worsen. Follow-up with your doctor for further care. Discharge Date/Time: 11/24/18 12:42
[2018-11-24 11:13] LABS: BASOPHILS % (AUTO) 0.7 %; EOSINOPHILS # (AUTO) 0.1 10^3/uL (0.0-0.7); EOSINOPHILS % (AUTO) 3.4 %; HGB - HEMOGLOBIN 12.9 g/dL (12.0-16.0); LYMPHOCYTES # (AUTO) 1.4 10^3/uL (1.5-3.5); LYMPHOCYTES % (AUTO) 34.2 %; MEAN CORPUSCULAR HEMOGLOBIN 31.5 pg (27.0-31.0); MEAN CORPUSCULAR VOLUME 95.4 fL (81.0-99.0); MEAN PLATELET VOLUME 9.1 fL (7.9-10.8); MONOCYTES # (AUTO) 0.4 10^3/uL (0.0-1.0); MONOCYTES % (AUTO) 10.1 %; NEUTROPHILS # (AUTO) 2.1 10^3/uL (1.5-6.6); NEUTROPHILS % (AUTO) 51.1 %; PLT - PLATELET COUNT 187 10^3/uL (130-450); RED CELL DISTRIBUTION WIDTH 12.6 % (12.0-15.0); WHITE BLOOD COUNT 4.1 x10^3/uL (4.8-10.8)
[2018-11-24 11:24] LABS: ALBUMIN 3.8 g/dL (3.2-5.5); BILIRUBIN,TOTAL 0.6 mg/dL (0.2-1.0); CALCIUM 9.5 mg/dL (8.5-10.3); CREATININE 0.7 mg/dL (0.4-1.0); TOTAL PROTEIN 7.5 g/dL (6.7-8.2)
[2018-11-24 11:48] LABS: BILIRUBIN,URINE NEGATIVE (NEGATIVE); GLUCOSE, URINE (UA) NEGATIVE (NEGATIVE); KETONES,URINE (UA) NEGATIVE (NEGATIVE); LEUKOCYTE ESTERASE, URINE NEGATIVE (NEGATIVE); NITRITE,URINE NEGATIVE (NEGATIVE); OCCULT BLOOD,URINE NEGATIVE (NEGATIVE); PH,URINE 5.5 PH (5.0-7.5); PROTEIN,URINE NEGATIVE (NEGATIVE); UROBILINOGEN,URINE 0.2 (NORMAL) E.U./dL (NORMAL)
[2018-11-24 11:49] LABS: CLARITY,URINE CLEAR (CLEAR)
[2018-11-24 12:43] VITALS: BP 150/96
== END 2018-11-24 12:42 | disposition home or self-care (01) ==
LOC: ED 10:16
DX: J01.90 Acute sinusitis, unspecified (principal)
CPT/HCPCS: 36415; 80053; 81001; 81003; 83690; 85025; 87086; 96360; 99284

== ENCOUNTER 2018-12-11 09:37 | Outpatient (CLI) | payer MEDICAID ==
[2018-12-11 09:53] LABS: BASOPHILS % (AUTO) 0.7 %; EOSINOPHILS # (AUTO) 0.1 10^3/uL (0.0-0.7); EOSINOPHILS % (AUTO) 2.7 %; HGB - HEMOGLOBIN 13.2 g/dL (12.0-16.0); LYMPHOCYTES # (AUTO) 1.6 10^3/uL (1.5-3.5); LYMPHOCYTES % (AUTO) 39.9 %; MEAN CORPUSCULAR HEMOGLOBIN 31.9 pg (27.0-31.0); MEAN CORPUSCULAR HGB CONC 33.6 g/dL (32.0-36.0); MEAN CORPUSCULAR VOLUME 94.9 fL (81.0-99.0); MONOCYTES # (AUTO) 0.4 10^3/uL (0.0-1.0); MONOCYTES % (AUTO) 9.4 %; NEUTROPHILS # (AUTO) 1.9 10^3/uL (1.5-6.6); NEUTROPHILS % (AUTO) 47.1 %; PLT - PLATELET COUNT 203 10^3/uL (130-450); RED BLOOD COUNT 4.14 10^6/uL (4.20-5.40); RED CELL DISTRIBUTION WIDTH 12.6 % (12.0-15.0)
[2018-12-11 10:12] LABS: ALBUMIN 4.1 g/dL (3.2-5.5); ALBUMIN/GLOBULIN RATIO 1.1 (1.0-2.2); ALKALINE PHOSPHATASE 91 IU/L (42-121); ALT ALANINE AMINOTRANSFERASE 12 IU/L (10-60); AST ASPARTATE AMINOTRANSFERASE 15 IU/L (10-42); BILIRUBIN,TOTAL 0.7 mg/dL (0.2-1.0); BUN - BLOOD UREA NITROGEN 15 mg/dL (6-20); CALCIUM 9.2 mg/dL (8.5-10.3); CARBON DIOXIDE - CO2 28 mmol/L (21-32); CHLORIDE 105 mmol/L (101-111); CHOL/HDL RATIO 4.5 (<4.4); CHOLESTEROL 228 mg/dL; CREATININE 0.9 mg/dL (0.4-1.0); GFR - MDRD 65 (>89); GLUCOSE 103 mg/dL (70-100); HB2 TOTAL 13.7 g/dL; HDL CHOLESTEROL 51 mg/dL; HEMOGLOBIN A1C 0.53 g/dL; HEMOGLOBIN A1C % 5.7 % (4.6-6.2); LDL CHOLESTEROL,CALCULATED 150 mg/dL; LDL/HDL RATIO 2.9 (<4.4); SODIUM 139 mmol/L (135-145); VLDL CHOLESTEROL 27 mg/dL
== END 2018-12-11 09:38 | disposition home or self-care (01) ==
LOC: LAB 09:37
PROVIDERS: ATTEND Registered Nurse
DX: R03.0 Elevated blood-pressure reading, without diagnosis of hypertension (principal); R52 Pain, unspecified
CPT/HCPCS: 36415; 80053; 80061; 83036; 83721; 84443; 85025

== ENCOUNTER 2019-01-11 17:25 | Emergency (ER) | payer MEDICAID ==
[2019-01-11 17:45] VITALS: BP 148/84
--- NOTE | 2019-01-11 18:41 | ED Physician Documentation ---
History of Present Illness - Stated complaint Stated Complaint: GAS LEAK EXPOSURE - Chief complaint Chief Complaint: General - History obtained from History obtained from: Patient - History of Present Illness Timing: How many hours ago (About 3 hours prior to arrival.) - Additonal information Additional information: The patient is an 53-year-old female who was cleaning a vacation rental when she began feeling "woozy and nauseated." There was a peculiar odor in the home, and the patient is concerned about the possibility of inhalation of chemical from a gas leak. Authorities were contacted, and the gas to the house was shut off. She was advised to seek medical evaluation. Her symptoms have since resolved after being in fresh air. 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 : Frequency HEENT: None Psych: Anxiety Musculoskeletal: None Derm: None - Past Surgical History Past Surgical History: Yes General: Hiatal hernia repair Ortho: Other /EQUIPMENT OPERATOR/LABORER: section, 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, Other - Present Medications Home Medications: Ambulatory Orders Medication Instructions Recorded Confirmed Cephalexin [Keflex] 500 mg PO Q6H #28 capsule 02/10/17 Meloxicam [Mobic] 7.5 mg PO BIDWM PRN #15 tablet 07/25/17 Amox/Clav 875/125 [Augmentin] 1 each PO Q12H #20 tablet 11/24/18 - Allergies Allergies/Adverse Reactions: Allergies Allergy/AdvReac Type Severity Reaction Status Date / Time morphine Allergy Intermediate Rash Verified 11/24/18 10:23 azithromycin Allergy Mild Nausea Verified 11/24/18 10:23 [From Zithromax Z-Cordell] Sulfa (Sulfonamide Allergy Rash Verified 11/24/18 10:23 Antibiotics) - Social History Does the pt smoke?: No Smoking Status: Never smoker Does the pt drink ETOH?: Yes Does the pt have substance abuse?: No - Immunizations Immunizations are current?: Yes - POLST Patient has POLST: No PD ED PE NORMAL - Vitals Vital signs reviewed: Yes (Borderline hypertension initially.) - General General: Alert and oriented X 3, Well developed/nourished - HEENT HEENT: Atraumatic, Moist mucous membranes, Pharynx benign - Neck Neck: Supple, no meningeal sign, No adenopathy - Cardiac Cardiac: RRR - Respiratory Respiratory: No respiratory distress, Clear bilaterally - Abdomen Abdomen: Soft, Non tender - Back Back: No CVA TTP - Derm Derm: No rash - Extremities Extremities: No edema, No calf tenderness / cord - Neuro Neuro: Alert and oriented X 3, No motor deficit, Normal speech Results - Vitals Vitals: Oxygen O2 Source Room air - Labs Labs: Laboratory Tests 01/11/19 17:50 VBG Total Hgb 14.3 VBG Oxyhemoglobin 60 L VBG Carboxyhemoglobin 1.4 VBG Methemoglobin 0.2 PD MEDICAL DECISION MAKING - ED course Complexity details: reviewed results, considered differential, d/w patient, d/w family ED course: The patient's presentation is most consistent with brief chemical inhalation exposure. There is no clinical evidence of ongoing symptoms, and carboxyhemoglobin level is normal. I do not think further workup would be of clinical benefit at this time. I discussed with her and her mother potentially worrisome signs or symptoms that should prompt reevaluation. Departure - Departure Disposition: 01 Home, Self Care Clinical Impression: Exposure to chemical inhalation Condition: Stable Instructions: ED Inhalation Chemical Follow-Up: Monae Nuñez ARNP [Primary Care Provider] - Comments: Follow-up with your primary physician or return to the emergency department if you develop increasing difficulty breathing, persistent vomiting, increasing headache, or otherwise worsening symptoms. Discharge Date/Time: 01/11/19 18:47
== END 2019-01-11 18:47 | disposition home or self-care (01) ==
LOC: ED 17:25
DX: Z77.098 Contact with and (suspected) exposure to other hazardous, chiefly nonmedicinal, chemicals (principal)
CPT/HCPCS: 36415; 82375; 99283; 99284

== ENCOUNTER 2019-03-10 09:47 | Outpatient (CLI) | payer MEDICAID ==
--- NOTE | 2019-03-10 13:47 | Mammography Report ---
Reason: ROUTINE MAMMO Procedure Date: 03/10/2019 Accession Number: [id number] / [id number] Procedure: IAN - Screening Mammo w/Barry CPT Code: Final Report FULL RESULT: EXAM: Screening Mammo w/Barry DATE: 03/10/2019 10:18 AM CLINICAL HISTORY: The patient is an asymptomatic 53-year-old female presenting for screening mammography. No reported personal nor family history of breast cancer. TECHNIQUE: (B) - Bilateral CC and MLO views were obtained. COMPARISON: None PARENCHYMAL PATTERN: (A) - The breasts demonstrate scattered fibroglandular densities bilaterally. FINDINGS: RIGHT BREAST: There may be focal asymmetry in the anterior medial position; reference tomographic slices 41 (MLO) and 14 (CC). This may represent overlapping glandular tissue. Recommend targeted diagnostic imaging for complete evaluation. LEFT BREAST: There are no suspicious masses, calcifications, or areas of distortion. IMPRESSION: RIGHT BREAST: Incomplete examination. BI-RADS Category 0 LEFT BREAST: Negative examination. BI-RADS category 1. RECOMMENDATION: Recommend targeted diagnostic mammographic views and ultrasound, if indicated. BI-RADS CATEGORY: (0) - Incomplete Examination - need additional evaluation. STANDARD QUALIFYING STATEMENTS: 1. This examination was not reviewed with the aid of Computer-Aided Detection (CAD). 2. A negative or benign imaging report should not preclude biopsy if clinically suspicious findings are present. 3. Dense breasts may obscure an underlying neoplasm. 4. This examination was reviewed with the aid of 3D breast imaging (tomosynthesis).
== END 2019-03-10 09:48 | disposition home or self-care (01) ==
LOC: DI 09:47
PROVIDERS: ATTEND Registered Nurse
DX: Z12.31 Encounter for screening mammogram for malignant neoplasm of breast (principal); R92.8 Other abnormal and inconclusive findings on diagnostic imaging of breast
CPT/HCPCS: 77063; 77067

== ENCOUNTER 2019-03-15 10:12 | Outpatient (CLI) | payer MEDICAID | END 2019-03-15 10:13 | disposition home or self-care (01) | LOC: DI 10:12 | PROVIDERS: ATTEND Family Medicine | DX: Z53.9 Procedure and treatment not carried out, unspecified reason (principal) ==

== ENCOUNTER 2019-03-19 12:49 | Outpatient (CLI) | payer MEDICAID ==
--- NOTE | 2019-03-20 19:30 | XRAY Report ---
Reason: RT FACIAL PAIN, SINUSITIS, DENTAL ABSCESS Procedure Date: 03/19/2019 Accession Number: [id number] / [id number] Procedure: XR - Sinus Complete CPT Code: Final Report FULL RESULT: EXAM: SINUS AND MANDIBULAR RADIOGRAPHY EXAM DATE: 03/19/2019 12:58 PM. CLINICAL HISTORY: Right facial pain, sinusitis, dental abscess. COMPARISONS: None. TECHNIQUE: 3 views of the sinuses and 4 views of the mandible. FINDINGS: Bones: Normal. No fractures or bone lesions. Sinuses: Normal. No opacities or fluid levels. Mastoid Air Cells: Clear. Other: No mandibular malalignment. No gross soft tissue swelling. IMPRESSION: Grossly negative sinus and mandibular radiography. If there is continued clinical concern, CT is suggested to increase sensitivity. RADIA
--- NOTE | 2019-03-20 19:30 | XRAY Report ---
Reason: RT FACIAL PAIN, SINUSITIS, DENTAL ABSCESS Procedure Date: 03/19/2019 Accession Number: [id number] / [id number] Procedure: XR - Mandible Bilat CPT Code: Final Report FULL RESULT: EXAM: SINUS AND MANDIBULAR RADIOGRAPHY EXAM DATE: 03/19/2019 12:58 PM. CLINICAL HISTORY: Right facial pain, sinusitis, dental abscess. COMPARISONS: None. TECHNIQUE: 3 views of the sinuses and 4 views of the mandible. FINDINGS: Bones: Normal. No fractures or bone lesions. Sinuses: Normal. No opacities or fluid levels. Mastoid Air Cells: Clear. Other: No mandibular malalignment. No gross soft tissue swelling. IMPRESSION: Grossly negative sinus and mandibular radiography. If there is continued clinical concern, CT is suggested to increase sensitivity. RADIA
== END 2019-03-19 12:50 | disposition home or self-care (01) ==
LOC: DI 12:49
PROVIDERS: ATTEND Family Medicine
DX: R51 Headache (principal); J30.9 Allergic rhinitis, unspecified
CPT/HCPCS: 70110; 70220

== ENCOUNTER 2019-04-12 11:09 | Emergency (ER) | payer MEDICAID ==
--- NOTE | 2019-04-12 13:52 | Ultrasound Report ---
Reason: RLE swelling Procedure Date: 04/12/2019 Accession Number: [id number] / [id number] Procedure: US - Duplex Ext Veins Right CPT Code: Final Report FULL RESULT: EXAM: RIGHT LOWER EXTREMITY VENOUS ULTRASOUND EXAM DATE: 04/12/2019 01:32 PM. CLINICAL HISTORY: RLE swelling. COMPARISON: RT LEV 12/31/2007 7:20 PM. TECHNIQUE: Real-time sonographic vascular imaging was performed by the extractor plant operator through the lower extremity utilizing both color-flow and Doppler spectral analysis. Multiple technical sales representatives static images were saved for review. FINDINGS: Common Femoral Vein (CFV): Normal. CFV-GSV Junction: Normal. Profunda Femoral Vein (PFV): Normal. Femoral Vein (FV) Prox: Normal. Femoral Vein (FV) Mid: Normal. Femoral Vein (FV) Dist: Normal. Popliteal Vein: Normal. Posterior Tibial Veins: Normal. Peroneal Veins: Normal. Contralateral Side CFV: Normal. Other: None. IMPRESSION: No evidence for deep venous thrombosis. RADIA
--- NOTE | 2019-04-12 13:56 | ED Physician Documentation ---
History of Present Illness - Stated complaint Stated Complaint: R LEG PX/DVT RULE OUT - Chief complaint Chief Complaint: Ext Problem - History obtained from History obtained from: Patient - History of Present Illness Timing: How many days ago (4) Pain level max: 5 Pain level now: 3 - Additonal information Additional information: 53-year-old female states that her her right medial lower leg has been hurting for the past several days. Worse with palpation. Better with ice. Does not recall any injury. She states her leg is been swelling and she is concerned about a DVT. No fevers. No recent surgery. No recent travel. No DVTs in the past. She states that she feels like the acyclovir is causing problems with her circulation. She is going to talk to her doctor about changing this medication. Review of Systems Constitutional: denies: Fever GI: denies: Vomiting Skin: denies: Rash PD PAST MEDICAL HISTORY - Past Medical History Cardiovascular: None Respiratory: Pneumonia Neuro: None Endocrine/Autoimmune: None GI: None, Hiatal hernia GATE TENDER: None : Frequency HEENT: None Psych: Anxiety Musculoskeletal: None Derm: None - Past Surgical History Past Surgical History: Yes General: Hiatal hernia repair Ortho: Other /GATE TENDER: section, 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, Other - Present Medications Home Medications: Ambulatory Orders Medication Instructions Recorded Confirmed Cephalexin [Keflex] 500 mg PO Q6H #28 capsule 02/10/17 Meloxicam [Mobic] 7.5 mg PO BIDWM PRN #15 tablet 07/25/17 Amox/Clav 875/125 [Augmentin] 1 each PO Q12H #20 tablet 11/24/18 - Allergies Allergies/Adverse Reactions: Allergies Allergy/AdvReac Type Severity Reaction Status Date / Time morphine Allergy Intermediate Rash Verified 11/24/18 10:23 azithromycin Allergy Mild Nausea Verified 11/24/18 10:23 [From Zithromax Z-Cordell] Sulfa (Sulfonamide Allergy Rash Verified 11/24/18 10:23 Antibiotics) - Social History Does the pt smoke?: No Smoking Status: Never smoker Does the pt drink ETOH?: Yes Does the pt have substance abuse?: No - Immunizations Immunizations are current?: Yes - POLST Patient has POLST: No PD ED PE NORMAL - Vitals Vital signs reviewed: Yes - General General: Alert and oriented X 3, No acute distress, Well developed/nourished - HEENT HEENT: Moist mucous membranes - Neck Neck: Supple, no meningeal sign - Cardiac Cardiac: RRR - Respiratory Respiratory: No respiratory distress, Clear bilaterally - Derm Derm: Warm and dry - Extremities Extremities: Other (Trace edema bilaterally. Mild calf tenderness on the right. Neurovascular intact. No skin changes. No pain with range of motion of the ankle or foot or knee.) - Neuro Neuro: Alert and oriented X 3 - Psych Psych: Normal mood, Normal affect Results - Vitals Vitals: Vital Signs - 24 hr 04/12/19 11:42 Temperature 36.4 C L Heart Rate 85 Respiratory 18 Rate Blood Pressure 149/87 H O2 Saturation 99 Oxygen O2 Source Room air - Rads (name of study) Duplex ultrasound right lower extremity Radiology: Prelim report reviewed, EMP read contemporaneously, See rad report (No DVT) PD MEDICAL DECISION MAKING - ED course Complexity details: reviewed results, considered differential, d/w patient ED course: Patient with right calf pain of unclear etiology. No bony tenderness on exam. No trauma. Expect soft tissue to be causing her symptoms. Negative ultrasound. We will continue supportive care and have her follow-up with her doctor. Patient counseled regarding signs and symptoms for which I believe and urgent re-evaluation would be necessary. Patient with good understanding of and agreement to plan and is comfortable going home at this time This document was made in part using voice recognition software. While efforts are made to proofread this document, sound alike and grammatical errors may occur. Departure - Departure Disposition: 01 Home, Self Care Clinical Impression: Peripheral edema Condition: Good Instructions: ED Leg Swelling Unilateral Follow-Up: Monae Nuñez ARNP [Primary Care Provider] - Within 1 week Comments: Your ultrasound does not show any evidence of a DVT today. Please follow-up with your doctor for further care. Return if you worsen.
[2019-04-12 14:00] VITALS: BP 148/90
== END 2019-04-12 14:05 | disposition home or self-care (01) ==
LOC: ED 11:09
DX: M79.661 Pain in right lower leg (principal); R60.0 Localized edema
CPT/HCPCS: 99284

== ENCOUNTER 2019-04-13 11:53 | Outpatient (CLI) | payer MEDICAID ==
--- NOTE | 2019-04-13 18:31 | CT Report ---
Reason: ALLERGIC RHINITIS,RHINOSINUSITIS CHRONIC,FACIAL PX Procedure Date: 04/13/2019 Accession Number: [id number] / [id number] Procedure: CT - Sinuses CPT Code: Final Report FULL RESULT: EXAM: CT SINUS EXAM DATE: 04/13/2019 12:13 PM. HISTORY: ALLERGIC RHINITIS,RHINOSINUSITIS CHRONIC, right FACIAL PX. COMPARISONS: SINUS COMPLETE 03/19/2019 12:58 PM SINUS 12/25/2007 8:19 AM. TECHNIQUE: Routine multi-axial CT imaging performed through the sinuses. Iodinated IV contrast: None. Reconstructions: Multiplanar reformats. In accordance with CT protocol optimization, one or more of the following dose reduction techniques were utilized for this exam: automated exposure control, adjustment of mA and/or KV based on patient size, or use of iterative reconstructive technique. FINDINGS: RIGHT Frontal: Normal. Ethmoid: Normal. Maxillary: Mucosal thickening medial right maxillary sinus antrum obstructing right maxillary sinus infundibulum, increased compared to 2007. No evidence for air-fluid level. Sphenoid: Mucosal thickening anteromedial right sphenoid sinus locule obstructing right sphenoethmoidal recess. Drainage Pathways: Mucosal thickening across the right maxillary sinus infundibulum and right sphenoethmoidal recess. LEFT Frontal: Normal. Ethmoid: Normal. Maxillary: Mucosal thickening inferior left maxillary sinus antrum. No significant obstruction left maxillary sinus infundibulum. Sphenoid: Mucosal thickening anteromedial left sphenoid sinus locule obstructing left sphenoethmoidal recess. Drainage Pathways: Mucosal thickening and obstruction of the left sphenoid ethmoidal recess. Nasal Cavity: Normal. No mass or significant anatomic abnormality evident. Osseous Structures: Unremarkable. Orbits: Unremarkable. Other: None. IMPRESSION: Mucosal thickening bilateral maxillary sinus antrum. Frothy secretions left inferior maxillary sinus antrum could be correlated with acute sinusitis. Mucosal thickening across the right maxillary sinus infundibulum and bilateral sphenoethmoidal recess without air-fluid levels. RADIA
== END 2019-04-13 11:54 | disposition home or self-care (01) ==
LOC: DI 11:53
PROVIDERS: ATTEND Registered Nurse
DX: J30.9 Allergic rhinitis, unspecified (principal); J32.8 Other chronic sinusitis; R51 Headache; K04.7 Periapical abscess without sinus; R92.8 Other abnormal and inconclusive findings on diagnostic imaging of breast
CPT/HCPCS: 70486; 76642

== ENCOUNTER 2019-04-13 11:54 | Outpatient (CLI) | payer MEDICAID ==
--- NOTE | 2019-04-13 13:49 | Mammography Report ---
Reason: ABN MAMMO - RT SPEC VIEWS Procedure Date: 04/13/2019 Accession Number: [id number] / [id number] Procedure: IAN - Diag Special Views Dig RT CPT Code: Final Report FULL RESULT: EXAM: Diag Special Views Dig RT DATE: 04/13/2019 1:12 PM CLINICAL HISTORY: Diagnostic examination. The patient is recalled from screening mammogram for a right breast focal asymmetry. TECHNIQUE: (R) - Right spot CC, spot MLO, LM images are obtained. Focused right breast ultrasound is performed. COMPARISON: 03/10/2019 and 01/25/2010. PARENCHYMAL PATTERN: (A) - The breast(s) demonstrate(s) scattered fibroglandular densities. FINDINGS: The previously seen asymmetry persists on spot views without definite underlying architectural distortion on 3-D mammography. Focused right breast ultrasound in the area of clinical interest is normal with no abnormal mass or collection identified. These findings are probably benign. There are no suspicious masses, calcifications, or areas of distortion. IMPRESSION: Probably Benign. BI-RADS category 3. RECOMMENDATION: (6MOS) - Recommend 6 month follow-up exam. Right breast mammogram. BI-RADS CATEGORY: (3) - Probably Benign. STANDARD QUALIFYING STATEMENTS: 1. This examination was not reviewed with the aid of Computer-Aided Detection (CAD). 2. A negative or benign imaging report should not preclude biopsy if clinically suspicious findings are present. 3. Dense breasts may obscure an underlying neoplasm. 4. This examination was reviewed with the aid of 3D breast imaging (tomosynthesis).
== END 2019-04-13 11:55 | disposition home or self-care (01) ==
LOC: DI 11:54
PROVIDERS: ATTEND Registered Nurse
DX: R92.8 Other abnormal and inconclusive findings on diagnostic imaging of breast (principal)
CPT/HCPCS: 76642

== ENCOUNTER 2019-07-21 08:00 | Outpatient (CLI) | payer MEDICAID ==
[2019-07-21 12:00] LABS: BASOPHILS % (AUTO) 0.9 %; EOSINOPHILS # (AUTO) 0.1 10^3/uL (0.0-0.7); EOSINOPHILS % (AUTO) 2.6 %; HGB - HEMOGLOBIN 13.8 g/dL (12.0-16.0); LYMPHOCYTES # (AUTO) 1.4 10^3/uL (1.5-3.5); LYMPHOCYTES % (AUTO) 33.3 %; MEAN CORPUSCULAR HEMOGLOBIN 32.2 pg (27.0-31.0); MEAN CORPUSCULAR HGB CONC 33.8 g/dL (32.0-36.0); MEAN CORPUSCULAR VOLUME 95.3 fL (81.0-99.0); MEAN PLATELET VOLUME 10.4 fL (7.9-10.8); MONOCYTES # (AUTO) 0.4 10^3/uL (0.0-1.0); MONOCYTES % (AUTO) 8.9 %; NEUTROPHILS # (AUTO) 2.3 10^3/uL (1.5-6.6); NEUTROPHILS % (AUTO) 53.8 %; PLT - PLATELET COUNT 241 10^3/uL (130-450); RED BLOOD COUNT 4.28 10^6/uL (4.20-5.40); RED CELL DISTRIBUTION WIDTH 12.6 % (12.0-15.0); WHITE BLOOD COUNT 4.3 x10^3/uL (4.8-10.8)
[2019-07-21 12:12] LABS: ALBUMIN 4.1 g/dL (3.2-5.5); ALBUMIN/GLOBULIN RATIO 1.1 (1.0-2.2); BILIRUBIN,TOTAL 0.5 mg/dL (0.2-1.0); CALCIUM 9.3 mg/dL (8.5-10.3); CREATININE 0.7 mg/dL (0.4-1.0); TOTAL PROTEIN 7.9 g/dL (6.7-8.2)
== END 2019-07-21 23:59 | disposition home or self-care (01) ==
LOC: LAB.WCP 08:00
PROVIDERS: ATTEND Family Medicine
DX: R53.83 Other fatigue (principal); J30.9 Allergic rhinitis, unspecified; R53.81 Other malaise; Z11.1 Encounter for screening for respiratory tuberculosis
CPT/HCPCS: 36415; 80053; 81599; 85025; 86480

== ENCOUNTER 2019-07-29 08:00 | Outpatient (CLI) | payer MEDICAID | END 2019-07-29 23:59 | disposition home or self-care (01) | LOC: LAB.WCP 08:00 | PROVIDERS: ATTEND Registered Nurse | DX: R53.83 Other fatigue (principal); R07.9 Chest pain, unspecified; R53.81 Other malaise | CPT/HCPCS: 36415; 80053; 84484; 85025; 85651 ==

== ENCOUNTER 2019-08-20 14:49 | Outpatient (CLI) | payer MEDICAID | END 2019-08-20 23:59 | disposition home or self-care (01) | LOC: LAB.WCP 14:49 | PROVIDERS: ATTEND Family Medicine | DX: R53.83 Other fatigue (principal) | CPT/HCPCS: 36415; 84443 ==

== ENCOUNTER 2019-12-20 07:00 | Outpatient (CLI) | payer MEDICAID | END 2019-12-20 23:59 | disposition home or self-care (01) | LOC: LAB.R 07:00 | PROVIDERS: ATTEND Physician Assistant | DX: Z20.828 Contact with and (suspected) exposure to other viral communicable diseases (principal); B97.89 Other viral agents as the cause of diseases classified elsewhere ==

== ENCOUNTER 2020-04-17 10:03 | Emergency (ER) | payer MEDICAID ==
[2020-04-17] MEDS ORDERED: KETOROLAC 30 MG/ML VIAL IM STA (13:58)
--- NOTE | 2020-04-17 16:04 | ED Physician Documentation ---
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 unrelieved with compression stockings. she has a vascular surgeon Dr. Roche at [facility] who is seeing her for PVD. denies fevers, sob, pleurisy, cough, injury to the leg. Also with pain to the L leg, but milder. Review of Systems Skin: denies: Rash Musculoskeletal: reports: Extremity pain Neurologic: denies: Focal weakness, Numbness PD PAST MEDICAL HISTORY - Past Medical History Past Medical History: Yes Cardiovascular: None Respiratory: Pneumonia Neuro: None Endocrine/Autoimmune: None GI: None, Hiatal hernia MACHINE FIXER: None : Frequency HEENT: None Psych: Anxiety Musculoskeletal: None Derm: None - Past Surgical History Past Surgical History: Yes General: Hiatal hernia repair Ortho: Other /MACHINE FIXER: section, 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, Other - Present Medications Home Medications: Ambulatory Orders Medication Instructions Recorded Confirmed Cephalexin [Keflex] 500 mg PO Q6H #28 capsule 02/10/17 Meloxicam [Mobic] 7.5 mg PO BIDWM PRN #15 tablet 07/25/17 Amox/Clav 875/125 [Augmentin] 1 each PO Q12H #20 tablet 11/24/18 - Allergies Allergies/Adverse Reactions: Allergies Allergy/AdvReac Type Severity Reaction Status Date / Time morphine Allergy Intermediate Rash Verified 04/17/20 10:12 azithromycin Allergy Mild Nausea Verified 04/17/20 10:12 [From Zithromax Z-Cordell] Sulfa (Sulfonamide Allergy Rash Verified 04/17/20 10:12 Antibiotics) - Social History Does the pt smoke?: No Smoking Status: Never smoker Does the pt drink ETOH?: Yes Does the pt have substance abuse?: No - Immunizations Immunizations are current?: Yes - POLST Patient has POLST: No PD ED PE NORMAL - Vitals Vital signs reviewed: Yes - General General: Alert and oriented X 3 - HEENT HEENT: Atraumatic, PERRL, EOMI - Cardiac Cardiac: RRR - Respiratory Respiratory: No respiratory distress, Clear bilaterally - Derm Derm: Normal color, Warm and dry - Extremities Extremities: Other (BL 1+ pitting edema. diminished LE pulses (1+ DP bilaterally). normal sensation/strength, cap refill < 2 sec. BL calf mild ttp. ) - Neuro Neuro: Alert and oriented X 3 Results - Vitals Vitals: Vital Signs - 24 hr 04/17/20 10:06 Temperature 36.3 C L Heart Rate 78 Respiratory 14 Rate Blood Pressure 166/97 H O2 Saturation 99 Oxygen O2 Source Room air PD MEDICAL DECISION MAKING - ED course ED course: 54-year-old woman with history of vascular disease presents with bilateral leg swelling, right worse than left associated with pain. Her ultrasounds of the artery and veins in the bilateral lower extremities showed no significant disease. She will follow up with her vascular surgeon. She has an appointment for follow-up ultrasound on May 04. Strict return precautions given Departure - Departure Disposition: Home, Self Care Clinical Impression: Right calf pain Condition: Good Instructions: ED PVD Comments: You were seen in the emergency department for right leg pain. Your ultrasound results are enclosed. We did not find any significant blockages of your arteries and no blood clots in your veins in your leg. You should keep your follow-up appointment and get a repeat ultrasound. You should also follow-up with your vascular surgeon about these results. Wear compression stockings and take ibuprofen 600 mg every 6 hours for pain. elevate your feet when you can to reduce swelling. return for any new or worsening symptoms.
--- NOTE | 2020-04-17 16:19 | Ultrasound Report ---
PROCEDURE: Duplex Ext Veins Bilateral INDICATIONS: BEBETO RAMIREZ TECHNIQUE: Real-time imaging, as well as color and pulse Doppler interrogation, were performed of the deep veins of both legs from the inguinal ligament to the popliteal fossa. COMPARISON: None FINDINGS: The deep veins are normally compressible, and free of intraluminal thrombus. Color and pu lse Doppler demonstrate normal phasic intravascular flow. There is normal augmentation response to d istal compression maneuver. IMPRESSION: No evidence of DVT, bilateral lower extremities. Comment: A preliminary Call Report was given to the referring clinician by the natural sciences department chair at the [facility] e of study completion. Reviewed by: Tariq Hallman MD on 04/17/2020 4:18 PM PST Approved by: Tariq Hallman MD on 04/17/2020 4:18 PM PST Station ID: [id number]
--- NOTE | 2020-04-17 16:23 | Ultrasound Report ---
PROCEDURE: Duplex Lwr Ext Arterial Bilat INDICATIONS: decreased pulses, hx vascular disease TECHNIQUE: Color and pulse Doppler interrogation was performed of both lower extremity arterial systems, with im age documentation. COMPARISON: None FINDINGS: Right lower extremity: Common femoral artery: 99 cm/sec, with triphasic flow. Deep femoral artery: 36 cm/sec, with triphasic flow. Proximal superficial femoral artery: 85 cm/sec, with triphasic flow. Mid superficial femoral artery: 93 cm/sec, with triphasic flow. Distal superficial femoral artery: 60 cm/sec, with biphasic flow. Popliteal artery: 51 cm/sec, with triphasic flow. Posterior tibial artery: 74 cm/sec, with triphasic flow. Anterior tibial artery/dorsalis pedis: 43/34 cm/sec, with biphasic flow. Ibarra-scale imaging description: No stenotic disease identified. All waveforms are triphasic or bipha sic Left lower extremity: Common femoral artery: 92 cm/sec, with triphasic flow. Deep femoral artery: 44 cm/sec, with triphasic flow. Proximal superficial femoral artery: 71 cm/sec, with triphasic flow. Mid superficial femoral artery: 74 cm/sec, with triphasic flow. Distal superficial femoral artery: 54 cm/sec, with triphasic flow. Popliteal artery: 45 cm/sec, with triphasic flow. Posterior tibial artery: 62 cm/sec, with triphasic flow. Anterior tibial artery/dorsalis pedis: 48/31 cm/sec, with triphasic flow. Ibarra-scale imaging description: No stenotic disease identified. All waveforms are triphasic. IMPRESSION: 1. No evidence of aortoiliac inflow disease. 2. Right lower extremity arterial runoff unremarkable, with at least two-vessel runoff. 3. Left lower extremity arterial runoff unremarkable with at least two-vessel runoff. Helical: A preliminary report was given by the extender to referring clinician at the time of stud y completion. Reviewed by: Tariq Hallman MD on 04/17/2020 4:22 PM PST Approved by: Tariq Hallman MD on 04/17/2020 4:22 PM PST Station ID: [id number]
[2020-04-17 16:33] VITALS: BP 145/88
== END 2020-04-17 16:34 | disposition home or self-care (01) ==
LOC: ED 10:03
DX: M79.661 Pain in right lower leg (principal); M79.605 Pain in left leg; I73.9 Peripheral vascular disease, unspecified
CPT/HCPCS: 93925; 93970; 96374; 99282

== ENCOUNTER 2020-07-02 04:49 | Emergency (ER) | payer MEDICAID ==
--- NOTE | 2020-07-02 05:07 | ED Physician Documentation ---
PD HPI CHEST PAIN - Stated complaint Stated Complaint: POST OP CP - History obtained from History obtained from: Patient - History of Present Illness Timing - onset: How many hours ago (1-2) Timing - onset during: Rest (she had vein surgery on right lower leg by vascular surgeon in his surgical suite in office 3 days ago. has had swelling and tenderness around the skin sites. This morning has increased swelling in leg and foot. Also feeling of some nausea and lower substernal chest discomfort. Concerned heart/clots) Timing - details: Abrupt onset (for the chest tightness. The leg swelling has been since surgery 5 days ago.) Quality: Aching, Indigestion Location: Substernal, Epigastric Worsened by: No: Inspiration, Movement, Palpation Associated symptoms: Shortness of air (mild), Nausea. No: Diaphoresis, Vomiting, Feeling faint / dizzy, General Weakness, Palpitations, Cough Recently seen: Surgery (outpatient in [facility] surgeons office/suite, with small incisions and also laser use. Seen in follow up 2 days ago, and told to continue elevating and wraps and ice. to recheck if increased swelling or pain, so she did. Taking Ibuprofen tid the past few days for leg.) Review of Systems Constitutional: denies: Fever, Chills Nose: denies: Rhinorrhea / runny nose, Congestion Throat: denies: Sore throat Respiratory: denies: Cough : denies: Dysuria, Frequency Skin: denies: Rash, Abrasion (s) PD PAST MEDICAL HISTORY - Past Medical History Cardiovascular: None, Peripheral Vascular Disease (and varicosities on both legs.) Respiratory: Pneumonia Neuro: None Endocrine/Autoimmune: None GI: None, Hiatal hernia LEGISLATORS: None : Frequency HEENT: None Psych: Anxiety Musculoskeletal: None Derm: None - Past Surgical History Past Surgical History: Yes General: Hiatal hernia repair Ortho: Other /LEGISLATORS: section, 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, Other - Present Medications Home Medications: Ambulatory Orders Medication Instructions Recorded Confirmed Aspirin [Aspirin EC] 81 mg PO DAILY 07/02/20 07/02/20 Famotidine [Pepcid] 20 mg PO DAILY #20 tablet 07/02/20 HYDROcod/ACETAM 5/325 [[place] 5/325] 1 ea PO Q6H PRN #15 tablet 07/02/20 Ibuprofen [Motrin] 600 mg PO TID 07/02/20 07/02/20 - Allergies Allergies/Adverse Reactions: Allergies Allergy/AdvReac Type Severity Reaction Status Date / Time morphine Allergy Intermediate Rash Verified 07/02/20 05:04 azithromycin Allergy Mild Nausea Verified 07/02/20 05:04 [From Zithromax Z-Cordell] Sulfa (Sulfonamide Allergy Rash Verified 07/02/20 05:04 Antibiotics) - Social History Does the pt smoke?: No Smoking Status: Never smoker Does the pt drink ETOH?: Yes Does the pt have substance abuse?: No - Immunizations Immunizations are current?: Yes - POLST Patient has POLST: No PD ED PE NORMAL - Vitals Vital signs reviewed: Yes - General General: Alert and oriented X 3, No acute distress, Well developed/nourished - HEENT HEENT: Pharynx benign - Neck Neck: Supple, no meningeal sign, No adenopathy - Cardiac Cardiac: RRR, No murmur - Respiratory Respiratory: No respiratory distress, Clear bilaterally - Abdomen Abdomen: Normal bowel sounds, Soft, Non distended, No organomegaly, Other (mild tender epigastric area without guarding nor percussion tenderness. ) - Derm Derm: Normal color, Warm and dry - Extremities Extremities: Other (1+ edema in lower leg with skin small lesions c/w small incisions scatter anteromedially. No posterior pain nor tenderness per se. ) - Neuro Neuro: Alert and oriented X 3, No motor deficit, No sensory deficit, Normal speech - Psych Psych: Normal mood. No: Normal affect (mildly anxious) Results - Vitals Vitals: Vital Signs - 24 hr 07/02/20 07/02/20 07/02/20 05:04 05:09 07:15 Temperature 36.6 C 36.6 C 37.1 C Heart Rate 65 66 68 Respiratory 18 14 16 Rate Blood Pressure 172/99 H 182/80 H 150/78 H O2 Saturation 100 98 100 Oxygen O2 Source Room air - Labs Labs: Laboratory Tests 07/02/20 07/02/20 07/02/20 05:25 05:25 05:25 WBC 4.1 L RBC 3.75 L Hgb 11.7 L Hct 35.9 L MCV 95.7 MCH 31.2 H MCHC 32.6 RDW 12.2 Plt Count 205 MPV 9.3 Neut # (Auto) 2.0 Lymph # (Auto) 1.4 L [place] # (Auto) 0.4 Eos # (Auto) 0.2 Baso # (Auto) 0.0 Absolute Nucleated RBC 0.00 Nucleated RBC % 0.0 Sodium 140 Potassium 4.1 Chloride 101 Carbon Dioxide 26 Anion Gap 13.0 BUN 15 Creatinine 0.9 Estimated GFR (MDRD) 65 L Glucose 98 Calcium 9.2 Total Bilirubin 0.3 AST 21 ALT 19 Alkaline Phosphatase 92 Troponin I High Sens 2.5 B-Natriuretic Peptide Total Protein 6.8 Albumin 3.5 Globulin 3.3 Albumin/Globulin Ratio 1.1 Lipase 30 07/02/20 05:25 WBC RBC Hgb Hct MCV MCH MCHC RDW Plt Count MPV Neut # (Auto) Lymph # (Auto) [place] # (Auto) Eos # (Auto) Baso # (Auto) Absolute Nucleated RBC Nucleated RBC % Sodium Potassium Chloride Carbon Dioxide Anion Gap BUN Creatinine Estimated GFR (MDRD) Glucose Calcium Total Bilirubin AST ALT Alkaline Phosphatase Troponin I High Sens B-Natriuretic Peptide 40 Total Protein Albumin Globulin Albumin/Globulin Ratio Lipase - Rads (name of study) chest xray Radiology: Prelim report reviewed, EMP read contemporaneously (no acute process), See rad report duplex right lower ext Radiology: Prelim report reviewed (no DVT seen. Superifical areas of poor compression at areas of surgery, nonocclusive thrombus.), See rad report PD MEDICAL DECISION MAKING - ED course Complexity details: reviewed results, re-evaluated patient (some improvement with Mylanta. ), considered differential (concern for DVT and can get U/S. Less likely acute ischemic heart disease or effusion/pneumonia; can consider lung like PTX/pneumonia. Also consider Gi. ), d/w patient Departure - Departure Disposition: 01 Home, Self Care Clinical Impression: Right leg swelling, Chest discomfort Complication of vein following procedure, not elsewhere classified Qualifiers: Encounter type: initial encounter Qualified Code(s): T81.72XA - Complication of vein following a procedure, not elsewhere classified, initial encounter Condition: Stable Record reviewed to determine appropriate education?: Yes Instructions: ED Gastritis Follow-Up: Monae Nuñez ARNP [Primary Care Provider] - Prescriptions: HYDROcod/ACETAM 5/325 [[place] 5/325] 1 ea PO Q6H PRN #15 tablet PRN Reason: Pain Famotidine [Pepcid] 20 mg PO DAILY #20 tablet Comments: No signs of deep clots on your ultrasound. Your chest x-ray EKG and blood tests are normal. No signs of heart failure or heart attack. It does sound like your chest discomfort may be related to stomach or acid production and likely irritation from the ibuprofen. Use Tylenol instead 500 to 650 mg 4 times a day. Alternatively use hydrocodone if needed for worse pain. Use a mild stool softener daily as well. Elevate wrap and ice your surgical sites on the leg periodically through the d ay. Follow-up with the vascular surgeon in the next few days, call Friday morning for updating them. TimesAdd famotidine acid reducing and antacid such as Maalox or Mylanta as well. Discharge Date/Time: 07/02/20 07:45
[2020-07-02 05:30] LABS: BASOPHILS % (AUTO) 0.7 %; EOSINOPHILS # (AUTO) 0.2 10^3/uL (0.0-0.7); EOSINOPHILS % (AUTO) 5.8 %; HCT - HEMATOCRIT 35.9 % (37.0-47.0); HGB - HEMOGLOBIN 11.7 g/dL (12.0-16.0); LYMPHOCYTES # (AUTO) 1.4 10^3/uL (1.5-3.5); LYMPHOCYTES % (AUTO) 34.5 %; MEAN CORPUSCULAR HEMOGLOBIN 31.2 pg (27.0-31.0); MEAN CORPUSCULAR HGB CONC 32.6 g/dL (32.0-36.0); MEAN CORPUSCULAR VOLUME 95.7 fL (81.0-99.0); MEAN PLATELET VOLUME 9.3 fL (7.9-10.8); MONOCYTES # (AUTO) 0.4 10^3/uL (0.0-1.0); MONOCYTES % (AUTO) 10.1 %; NEUTROPHILS % (AUTO) 48.7 %; PLT - PLATELET COUNT 205 10^3/uL (130-450); RED BLOOD COUNT 3.75 10^6/uL (4.20-5.40); RED CELL DISTRIBUTION WIDTH 12.2 % (12.0-15.0); WHITE BLOOD COUNT 4.1 x10^3/uL (4.8-10.8)
[2020-07-02] MEDS ORDERED: MAG HYDROX/AL HYDROX/SIMETH 30 ML UDC PO STA (05:35)
[2020-07-02] MEDS ORDERED: FAMOTIDINE 20 MG/2 ML VIAL IVP STA (05:35)
[2020-07-02] MEDS ORDERED: fentaNYL 100 MCG/2 ML VIAL IVP STA (05:36)
[2020-07-02 05:43] LABS: ALBUMIN 3.5 g/dL (3.2-5.5); ALBUMIN/GLOBULIN RATIO 1.1 (1.0-2.2); BILIRUBIN,TOTAL 0.3 mg/dL (0.2-1.0); CALCIUM 9.2 mg/dL (8.5-10.3); CREATININE 0.9 mg/dL (0.4-1.0); POTASSIUM 4.1 mmol/L (3.5-5.0); TOTAL PROTEIN 6.8 g/dL (6.7-8.2)
[2020-07-02 07:37] VITALS: BP 150/78
--- NOTE | 2020-07-02 08:54 | Ultrasound Report ---
PROCEDURE: Duplex Ext Veins Left INDICATIONS: right lower leg swelling/pain post vein surgery TECHNIQUE: Real-time imaging, as well as color and pulse Doppler interrogation, were performed of the lower extr emity deep veins from the inguinal ligament to the popliteal fossa. COMPARISON: Lower extremity venous duplex bilateral 04/17/2020. FINDINGS: The deep veins are normally compressible, and free of intraluminal thrombus. Color and pu lse Doppler demonstrate normal phasic intraluminal flow. There is normal augmentation response to di stal compression maneuver. In the region of clinical concern near the surgical site in the distal right lower extremity there is nonocclusive thrombus in the saphenous vein distally IMPRESSION: No right lower extremity DVT. Superficial venous nonocclusive thrombus in the distal right lower extremity near the surgical site. Dr. Win was present during the examination. Reviewed by: Sunday Jimenez MD on 07/02/2020 7:52 AM AKASH Approved by: Sunday Jimenez MD on 07/02/2020 7:52 AM AKASH Station ID: [id number]
--- NOTE | 2020-07-02 09:01 | XRAY Report ---
PROCEDURE: Chest 1 View X-Ray INDICATIONS: Chest pain TECHNIQUE: One view of the chest was acquired. COMPARISON: CXR 07/05/2018. FINDINGS: Surgical changes and devices: None. Lungs and pleura: No pleural effusions or pneumothorax. Lungs are clear. Mediastinum: Mediastinal contours appear normal. Heart size is normal. Bones and chest wall: No suspicious bony lesions. Overlying soft tissues appear unremarkable. IMPRESSION: No acute cardiopulmonary abnormality. This report is concordant with the overnight preliminary interpretation. Reviewed by: Sunday Jimenez MD on 07/02/2020 8:00 AM AKASH Approved by: Sunday Jimenez MD on 07/02/2020 8:00 AM AKASH Station ID: [id number]
== END 2020-07-02 07:45 | disposition home or self-care (01) ==
LOC: ED 04:49
DX: T81.72XA Complication of vein following a procedure, not elsewhere classified, initial encounter (principal); I82.811 Embolism and thrombosis of superficial veins of right lower extremity; R60.0 Localized edema; R07.89 Other chest pain; I73.9 Peripheral vascular disease, unspecified; Z79.82 Long term (current) use of aspirin
CPT/HCPCS: 36415; 71045; 80053; 83690; 83880; 84484; 85025; 93005; 93971; 96374; 96375; 99284; A9270

== ENCOUNTER 2020-12-13 14:58 | Emergency (ER) | payer MEDICAID ==
[2020-12-13 15:19] VITALS: BP 150/79
[2020-12-13 16:10] LABS: BASOPHILS % (AUTO) 0.9 %; EOSINOPHILS # (AUTO) 0.2 10^3/uL (0.0-0.7); EOSINOPHILS % (AUTO) 3.4 %; HCT - HEMATOCRIT 38.7 % (37.0-47.0); LYMPHOCYTES # (AUTO) 1.5 10^3/uL (1.5-3.5); LYMPHOCYTES % (AUTO) 33.9 %; MEAN CORPUSCULAR HEMOGLOBIN 31.9 pg (27.0-31.0); MEAN CORPUSCULAR HGB CONC 33.6 g/dL (32.0-36.0); MEAN CORPUSCULAR VOLUME 94.9 fL (81.0-99.0); MEAN PLATELET VOLUME 8.9 fL (7.9-10.8); MONOCYTES # (AUTO) 0.4 10^3/uL (0.0-1.0); MONOCYTES % (AUTO) 7.8 %; NEUTROPHILS # (AUTO) 2.4 10^3/uL (1.5-6.6); NEUTROPHILS % (AUTO) 53.8 %; PLT - PLATELET COUNT 208 10^3/uL (130-450); RED BLOOD COUNT 4.08 10^6/uL (4.20-5.40); RED CELL DISTRIBUTION WIDTH 12.4 % (12.0-15.0); WHITE BLOOD COUNT 4.5 x10^3/uL (4.8-10.8)
[2020-12-13 16:26] LABS: ALBUMIN 4.2 g/dL (3.2-5.5); ALBUMIN/GLOBULIN RATIO 1.2 (1.0-2.2); BILIRUBIN,TOTAL 0.7 mg/dL (0.2-1.0); CALCIUM 9.3 mg/dL (8.5-10.3); CREATININE 0.7 mg/dL (0.4-1.0); POTASSIUM 4.1 mmol/L (3.5-5.0); TOTAL PROTEIN 7.6 g/dL (6.7-8.2)
== END 2020-12-13 18:18 | disposition left against medical advice (07) ==
LOC: ED 14:58
DX: Z53.21 Procedure and treatment not carried out due to patient leaving prior to being seen by health care provider (principal)
CPT/HCPCS: 36415; 80053; 83690; 85025

== ENCOUNTER 2020-12-25 06:49 | Outpatient (CLI) | payer MEDICAID ==
--- NOTE | 2020-12-25 09:27 | Ultrasound Report ---
PROCEDURE: Abdomen Complete INDICATIONS: ABDOMINAL PAIN TECHNIQUE: Real-time scanning was performed of the abdominal and retroperitoneal organs, with image documentatio n. COMPARISON: None. FINDINGS: Liver: Liver is normal in size, demonstrates coarse, mildly hyperechoic parenchymal echotexture, and has a smooth margin. There are 2 cysts in the left hepatic lobe measuring 0.8 cm and 2.0 cm. Appropr iate direction of flow in the portal vein. No suspicious solid masses. Gallbladder: Gallbladder is normal without stones or sludge. Normal wall thickness. No pericholecysti c fluid or sonographic Carmen sign. Biliary ducts: Intrahepatic bile ducts are non-dilated. Extrahepatic bile duct caliber measures 3.4 mm. Normal is 6-7 mm or less in diameter, or 10 mm or less post-cholecystectomy. Pancreas: Visualized portions of the pancreas are sonographically normal. Spleen: Spleen is normal in size and homogeneous in echotexture. Kidneys: Kidneys are normal in size and echotexture. Right kidney measures 10.7 cm long; left kidne y measures 11.7 cm long. No hydronephrosis or nephrolithiasis. No solid masses. A partially exophy tic cortical medullary cyst arises from the lower pole of the right kidney and measures 4.9 cm. Aorta: Visualized aorta is normal in caliber at less than 3 cm. Iliacs: Proximal common iliac arteries are normal in caliber at less than 2.5 cm. IVC: Intrahepatic inferior vena cava is patent. Miscellaneous: No free abdominal fluid. No abnormalities in the lower quadrants. IMPRESSION: 1. Mildly coarse hepatic echotexture raises the possibility of mild hepatic steatosis or intrinsic li gage disease. Correlate with LFTs. 2. Hepatic and right renal cysts. 3. Normal gallbladder. Reviewed by: Deja Wilson MD on 12/25/2020 9:26 AM PDT Approved by: Deja Wilson MD on 12/25/2020 9:26 AM PDT Station ID: [id number]
== END 2020-12-25 06:50 | disposition home or self-care (01) ==
LOC: DI 06:49
PROVIDERS: ATTEND Family Medicine
DX: K76.89 Other specified diseases of liver (principal); N28.1 Cyst of kidney, acquired; R10.9 Unspecified abdominal pain

== ENCOUNTER 2021-01-03 12:42 | Emergency (ER) | payer MEDICAID ==
--- NOTE | 2021-01-03 15:17 | Ultrasound Report ---
PROCEDURE: Duplex Ext Veins Right INDICATIONS: RLE pain TECHNIQUE: Real-time imaging, as well as color and pulse Doppler interrogation, were performed of the lower extr emity deep veins from the inguinal ligament to the popliteal fossa. COMPARISON: None. FINDINGS: The deep veins are normally compressible, and free of intraluminal thrombus. Color and pu lse Doppler demonstrate normal phasic intraluminal flow. There is normal augmentation response to di stal compression maneuver. IMPRESSION: No sonographic evidence of DVT. There is superficial venous thrombosis in the lesser saphenous vein as well as in a posterior tibial vein. Reviewed by: Aquiles Simms MD on 01/03/2021 3:16 PM PDT Approved by: Aquiles Simms MD on 01/03/2021 3:16 PM PDT Station ID: [id number]
--- NOTE | 2021-01-03 15:32 | ED Physician Documentation ---
History of Present Illness - Stated complaint Stated Complaint: POST OP PX - Chief complaint Chief Complaint: Ext Problem - Additonal information Additional information: 55 yo F presented w/ soreness and warm feeling in the right lower leg. Has a history of varicose vein surgery in same leg several months ago and she called her vein specialist who advised her to come in for US. She has noted some swelling in the medial proximal tibial area, but no erythema of the leg. She denies any prolonged immobility, recent major surgery, hormone use, prior DVT/PE, covid, or other risk factors for VTE. She is not on any anticoagulant. 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 Review of Systems Ten Systems: 10 systems reviewed and negative Skin: reports: Reviewed and negative Musculoskeletal: reports: Extremity pain (right leg pain), Extremity swelling (right leg swelling). denies: Joint pain, Joint swelling PD PAST MEDICAL HISTORY - Past Medical History Past Medical History: Yes Cardiovascular: Peripheral Vascular Disease Respiratory: Pneumonia Neuro: None Endocrine/Autoimmune: None GI: None, Hiatal hernia REGULATORY SERVICES CONSULTANT: None : Frequency HEENT: None Psych: Anxiety Musculoskeletal: None Derm: None - Past Surgical History Past Surgical History: Yes General: Hiatal hernia repair Ortho: Other /REGULATORY SERVICES CONSULTANT: section, 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, Other Cardiovascular: Vascular surgery - Present Medications Home Medications: Ambulatory Orders Medication Instructions Recorded Confirmed Gentamicin 0.3% Ophth Drops 1 drops Q4H 01/03/21 01/03/21 [Garamycin] Rivaroxaban [Xarelto] 10 mg PO DAILY #45 tablet 01/03/21 - Allergies Allergies/Adverse Reactions: Allergies Allergy/AdvReac Type Severity Reaction Status Date / Time morphine Allergy Intermediate Rash Verified 01/03/21 14:00 azithromycin Allergy Mild Nausea Verified 01/03/21 14:00 [From Zithromax Z-Cordell] Sulfa (Sulfonamide Allergy Rash Verified 01/03/21 14:00 Antibiotics) - Social History Does the pt smoke?: No Smoking Status: Never smoker Does the pt drink ETOH?: Yes Does the pt have substance abuse?: No - Immunizations Immunizations are current?: Yes - POLST Patient has POLST: No PD ED PE NORMAL - Vitals Vital signs reviewed: Yes - General General: Alert and oriented X 3, No acute distress, Well developed/nourished - HEENT HEENT: Atraumatic, Moist mucous membranes, Pharynx benign - Neck Neck: Supple, no meningeal sign, No JVD - Cardiac Cardiac: RRR, No murmur, No gallop, No rub - Respiratory Respiratory: No respiratory distress, Clear bilaterally - Abdomen Abdomen: Normal bowel sounds, Soft, Non tender, Non distended - Derm Derm: Normal color, Warm and dry, No rash - Extremities Extremities: No deformity, No tenderness to palpate, Normal ROM s pain, Other (mild right lower leg swelling, no focal fluid collection palpated. Mild tenderness of right calf. Multiple visible superficial varicosities w/o erythema or tenderness. ) - Neuro Neuro: Alert and oriented X 3, No motor deficit, No sensory deficit, Normal speech Eye Opening: Spontaneous Motor: Obeys Commands Verbal: Oriented GCS Score: 15 - Psych Psych: Normal mood, Normal affect Results - Vitals Vitals: Vital Signs - 24 hr 01/03/21 01/03/21 12:54 14:16 Temperature 36.5 C Heart Rate 87 57 L Respiratory 18 14 Rate Blood Pressure 157/109 H 132/74 H O2 Saturation 99 100 Oxygen O2 Source Room air PD MEDICAL DECISION MAKING - ED course Complexity details: reviewed results, re-evaluated patient, d/w patient ED course: Pt presented w/ right lower leg pain. An US was obtained which showed superficial venous thrombosis. I discussed these findings w/ pt and discussed close monitoring w/ supportive measures vs oral anticoagulant such as Xarelto. Pt agreeable to xarelto after discussion of risks vs benefits. She will continue supportive measures including elevation, compression stockings, and work on weight loss. She will follow up with PCP and the vascular team she has seen in the past within 2 weeks. Return precautions reviewed in detail w/ pt. Departure - Departure Disposition: 01 Home, Self Care Clinical Impression: Superficial thrombophlebitis Condition: Good Instructions: ED Phlebitis Superficial, ED Stockings Byron Prescriptions: Rivaroxaban [Xarelto] 10 mg PO DAILY #45 tablet Comments: You have a superficial venous thrombosis in the right leg. As we discussed, there may be some benefit of taking anticoagulation such as Xarelto, but these medications also come with potential side effects including increased risk of bleeding. I will start you on this medication but would like you to follow closely with your primary doctor and vein specialist to determine how long your should remain on this medication. Continue supportive measures such as compre ssion stockings and elevation.
[2021-01-03 15:47] VITALS: BP 157/95
== END 2021-01-03 15:47 | disposition home or self-care (01) ==
LOC: ED 12:42
DX: I80.01 Phlebitis and thrombophlebitis of superficial vessels of right lower extremity (principal); Z86.718 Personal history of other venous thrombosis and embolism; Z79.01 Long term (current) use of anticoagulants
CPT/HCPCS: 99283; 99284

== ENCOUNTER 2021-01-27 08:40 | Outpatient (CLI) | payer MEDICAID ==
--- NOTE | 2021-01-27 11:50 | Ultrasound Report ---
PROCEDURE: Pelvic w/Transvaginal INDICATIONS: DEEP DYSPAREUNIA TECHNIQUE: Real-time scanning was performed of the pelvic organs, with image documentation. Additional endovagi nal scanning was necessary due to incomplete visualization of the adnexal and endometrial structures by transabdominal scanning. COMPARISON: 02/24/2015 FINDINGS: No pathologic free abdominal or pelvic fluid. Uterus: Uterus is anteverted measuring 6.7 x 3.6 x 5.1 cm. Within the anterior aspect of the uterine body is a heterogeneous 2.0 x 1.7 x 2.0 cm intramural fibroid. This is grossly unchanged from compari son exam. Ndometrium measures 3 mm in thickness. There is a moderate amount of endometrial fluid. C-s ection scar is noted along the anterior aspect of the lower uterine body. Nabothian cyst. Ovaries: Not definitely identified on today's exam. IMPRESSION: Stable appearance of the uterus with 2.0 cm anterior uterine intramural fibroid. Ovaries not identified on today's examination. Reviewed by: Federico Dumont DO on 01/27/2021 10:49 AM AKASH Approved by: Federico Dumont DO on 01/27/2021 10:49 AM AKASH Station ID: [id number]
== END 2021-01-27 08:41 | disposition home or self-care (01) ==
LOC: DI 08:40
PROVIDERS: ATTEND Obstetrics & Gynecology
DX: N94.12 Deep dyspareunia (principal); D25.1 Intramural leiomyoma of uterus

== ENCOUNTER 2021-02-20 08:05 | Outpatient (CLI) | payer MEDICAID ==
--- NOTE | 2021-02-21 09:54 | Mammography Report ---
BILATERAL DIGITAL DIAGNOSTIC MAMMOGRAM 3D/2D: 02/20/2021 CLINICAL: Short term follow up of the right breast, due for bilateral imaging. Comparison is made to exams dated: 04/13/2019 ultrasound, 04/13/2019 mammogram, 03/10/2019 mammogram , and 01/25/2010 mammogram - [facility]. There are scattered fibroglandular elemen ts in both breasts. There is a stable irregular low density focal asymmetry with an indistinct margin in the right breast at 5 o'clock anterior depth. Findings are benign given 2 year stability. No other significant masses, calcifications, or other findings are seen in either breast. IMPRESSION: BENIGN There is no mammographic evidence of malignancy. A 1 year screening mammogram is recommended. This exam was interpreted at Station ID: [id number]. NOTE: For mammograms, a report in lay terms will be sent to the patient. Approximately 15% of breast malignancies will not be visualized mammographically. In the management of a palpable breast mass, a negative mammogram must not discourage biopsy of a clinically suspicious lesion. Electronically Signed By: Jeramy Jean M.D. ddp/:02/20/2021 08:45:48 ACR BI-RADS Category 2: Benign Finding(s) 3342F PARENCHYMAL PATTERN: (A) - The breast(s) demonstrate(s) scattered fibroglandular densities. BI-RADS CATEGORY: (2) - 2 RECOMMENDATION: (ANNUAL) - Recommend routine annual screening mammography. [id number] 1 year screening LATERALITY: (B)
== END 2021-02-20 08:06 | disposition home or self-care (01) ==
LOC: DI 08:05
PROVIDERS: ATTEND Registered Nurse
DX: R92.8 Other abnormal and inconclusive findings on diagnostic imaging of breast (principal)

== ENCOUNTER 2021-03-21 15:26 | Outpatient (CLI) | payer MEDICAID | END 2021-03-21 15:27 | disposition home or self-care (01) | LOC: LAB 15:26 | PROVIDERS: ATTEND Physician Assistant | DX: M79.604 Pain in right leg (principal) | CPT/HCPCS: 36415; 85379 ==

== ENCOUNTER 2021-05-24 17:41 | Emergency (ER) | payer MEDICAID ==
[2021-05-24 18:07] LABS: BASOPHILS % (AUTO) 0.8 %; EOSINOPHILS # (AUTO) 0.2 10^3/uL (0.0-0.7); EOSINOPHILS % (AUTO) 4.8 %; HCT - HEMATOCRIT 38.5 % (37.0-47.0); HGB - HEMOGLOBIN 12.9 g/dL (12.0-16.0); LYMPHOCYTES # (AUTO) 1.9 10^3/uL (1.5-3.5); LYMPHOCYTES % (AUTO) 38.7 %; MEAN CORPUSCULAR HEMOGLOBIN 31.6 pg (27.0-31.0); MEAN CORPUSCULAR HGB CONC 33.5 g/dL (32.0-36.0); MEAN CORPUSCULAR VOLUME 94.4 fL (81.0-99.0); MEAN PLATELET VOLUME 9.2 fL (7.9-10.8); MONOCYTES # (AUTO) 0.5 10^3/uL (0.0-1.0); MONOCYTES % (AUTO) 10.8 %; NEUTROPHILS # (AUTO) 2.2 10^3/uL (1.5-6.6); NEUTROPHILS % (AUTO) 44.7 %; PLT - PLATELET COUNT 210 10^3/uL (130-450); RED BLOOD COUNT 4.08 10^6/uL (4.20-5.40); RED CELL DISTRIBUTION WIDTH 12.1 % (12.0-15.0); WHITE BLOOD COUNT 4.8 x10^3/uL (4.8-10.8)
--- NOTE | 2021-05-24 18:08 | ED Physician Documentation ---
History of Present Illness - Stated complaint Stated Complaint: CP/HEADACHE/CLAMMY - Chief complaint Chief Complaint: Cardiac - Additonal information Additional information: 55-year-old female presents to the emergency department for evaluation of feeling generally unwell. Reports that since this morning she has had some left-sided chest pain/pressure with radiation to the left arm. She has felt clammy but denies diaphoresis. Denies shortness of air. No nausea or vomiting. Denies any history of hypertension though is noted to be modestly hypertensive here with her initial screening blood pressure. Patient is concerned she could be having a myocardial infarction. Denies any history of hypertension. No tobacco or alcohol use. Review of Systems Constitutional: reports: Myalgias, Fatigue Eyes: reports: Reviewed and negative Throat: reports: Reviewed and negative Cardiac: reports: Chest pain / pressure. denies: Palpitations, Pedal edema, Calf pain Respiratory: reports: Hemoptysis, Wheezing. denies: Dyspnea GI: denies: Abdominal Pain, Nausea, Vomiting, Constipation : reports: Reviewed and negative Skin: reports: Reviewed and negative Neurologic: reports: Reviewed and negative PD PAST MEDICAL HISTORY - Past Medical History Cardiovascular: Peripheral Vascular Disease Respiratory: Pneumonia Neuro: None Endocrine/Autoimmune: None GI: None, Hiatal hernia FAMILY LAW SPECIALIST: None : Incontinence, Nocturia, Frequency HEENT: None Psych: Anxiety Musculoskeletal: None Derm: None - Past Surgical History Past Surgical History: Yes General: Hiatal hernia repair Ortho: Other /FAMILY LAW SPECIALIST: section, 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, Other Cardiovascular: Vascular surgery - Present Medications Home Medications: Ambulatory Orders Medication Instructions Recorded Confirmed Coral Calcium 1 each PO DAILY 02/12/21 02/12/21 Sena-C 1 each PO DAILY 02/12/21 02/12/21 Multivitamin 1 each PO DAILY 02/12/21 02/12/21 estradioL vaginal [Estrace vaginal] 1 applic VG DAILY 02/12/21 02/12/21 - Allergies Allergies/Adverse Reactions: Allergies Allergy/AdvReac Type Severity Reaction Status Date / Time morphine Allergy Intermediate Rash Verified 05/24/21 17:55 azithromycin Allergy Mild Nausea Verified 05/24/21 17:55 [From Zithromax Z-Cordell] Sulfa (Sulfonamide Allergy Rash Verified 05/24/21 17:55 Antibiotics) - Social History Does the pt smoke?: No Smoking Status: Former smoker Does the pt drink ETOH?: Yes Does the pt have substance abuse?: No - Immunizations Immunizations are current?: Yes - POLST Patient has POLST: No PD ED PE NORMAL - General General: Alert and oriented X 3, No acute distress, Well developed/nourished - HEENT HEENT: Atraumatic, Ears normal, Moist mucous membranes, Pharynx benign - Neck Neck: Supple, no meningeal sign, No adenopathy - Cardiac Cardiac: RRR, No murmur, No gallop - Respiratory Respiratory: No respiratory distress - Abdomen Abdomen: Normal bowel sounds, Non tender - Back Back: No CVA TTP, No spinal TTP - Derm Derm: Normal color, Warm and dry, No rash - Extremities Extremities: No deformity, No tenderness to palpate, Normal ROM s pain - Neuro Neuro: Alert and oriented X 3, telesales advisor 2-12 intact Eye Opening: Spontaneous Motor: Obeys Commands Verbal: Oriented GCS Score: 15 - Psych Psych: Normal mood, Normal affect Results - Vitals Vitals: Vital Signs - 24 hr 05/24/21 05/24/21 05/24/21 17:53 18:35 19:09 Temperature 37 C Heart Rate 64 65 61 Respiratory 14 15 21 Rate Blood Pressure 185/86 H 185/86 H 161/83 H O2 Saturation 100 99 100 05/24/21 19:23 Temperature Heart Rate 61 Respiratory 15 Rate Blood Pressure 161/83 H O2 Saturation 99 Oxygen O2 Source Room air - EKG (time done) 1746 Rate: Rate (enter#) (68) Rhythm: NSR [place]: Normal Intervals: Normal CT QRS: Normal Ischemia: Normal ST segments Compare to prior EKG: Old EKG unavailable Computer interpretation: Agree with computer - Labs Labs: Laboratory Tests 05/24/21 05/24/21 05/24/21 18:02 18:02 18:02 WBC 4.8 RBC 4.08 L Hgb 12.9 Hct 38.5 MCV 94.4 MCH 31.6 H MCHC 33.5 RDW 12.1 Plt Count 210 MPV 9.2 Neut # (Auto) 2.2 Lymph # (Auto) 1.9 [place] # (Auto) 0.5 Eos # (Auto) 0.2 Baso # (Auto) 0.0 Absolute Nucleated RBC 0.00 Nucleated RBC % 0.0 Sodium 139 Potassium 4.1 Chloride 102 Carbon Dioxide 29 Anion Gap 8.0 BUN 18 Creatinine 0.9 Estimated GFR (MDRD) 65 L Glucose 87 Calcium 9.3 Total Bilirubin 0.8 AST 15 ALT 14 Alkaline Phosphatase 89 Troponin I High Sens 3.0 Total Protein 7.6 Albumin 3.9 Globulin 3.7 Albumin/Globulin Ratio 1.1 Lipase 42 TSH 05/24/21 18:02 WBC RBC Hgb Hct MCV MCH MCHC RDW Plt Count MPV Neut # (Auto) Lymph # (Auto) [place] # (Auto) Eos # (Auto) Baso # (Auto) Absolute Nucleated RBC Nucleated RBC % Sodium Potassium Chloride Carbon Dioxide Anion Gap BUN Creatinine Estimated GFR (MDRD) Glucose Calcium Total Bilirubin AST ALT Alkaline Phosphatase Troponin I High Sens Total Protein Albumin Globulin Albumin/Globulin Ratio Lipase TSH 3.85 - Rads (name of study) CXR Radiology: Final report received (no acute cardiopulmonary process) PD MEDICAL DECISION MAKING - ED course Complexity details: reviewed results, re-evaluated patient, considered differential, d/w patient ED course: 55-year-old female presents emergency department for evaluation of feeling crummy as well is having left-sided chest pain with radiation to her arm. Symptoms began this AM. At the time of evaluation in the ER she is not having chest pain but just feels generally unwell. She is concerned she could be having a myocardial infarction. Patient's heart score is 2 Screening chest x-ray is without acute focal opacity. Labs are also unrem arkable and troponin is negative. EKG was nonischemic. Patient reports that she has had multiple sick contacts to her job and wonders if she could have a virus though she did decline COVID-19 screening today. I have advised patient that given her age she should be seen as an outpatient with her primary care doctor for an echocardiogram and a stress test. Otherwise emergent return precautions discussed. Departure - Departure Disposition: 01 Home, Self Care Clinical Impression: Chest pain Qualifiers: Chest pain type: unspecified Qualified Code(s): R07.9 - Chest pain, unspecified Condition: Stable Record reviewed to determine appropriate education?: Yes Comments: Ramya lambert are seen today in the emergency department for feeling generally unwell as well as having left-sided chest pain with radiation to your arm. Your screening chest x-ray, EKG and labs are all essentially normal. It is possible that you have a viral illness causing your symptoms. In general I recommend you get plenty of rest and drink lots of fluids. However because you did have chest pain it is important that you follow-up with your primary care doctor. You should be referred for an outpatient stress test and an echocardiogram. If you have worsening symptoms, any fainting, sudden severe shortness of air then you are to return immediately to the ER for second evaluation
--- NOTE | 2021-05-24 18:20 | XRAY Report ---
PROCEDURE: Chest 1 View X-Ray INDICATIONS: Chest pain TECHNIQUE: One view of the chest was acquired. COMPARISON: CXR 07/02/2020. FINDINGS: Surgical changes and devices: None. Lungs and pleura: No pleural effusions or pneumothorax. Lungs are clear. Mediastinum: Mediastinal contours appear normal. Heart size is normal. Bones and chest wall: No suspicious bony lesions. Overlying soft tissues appear unremarkable. IMPRESSION: No acute cardiopulmonary abnormality. Reviewed by: Sunday Jimenez MD on 05/24/2021 6:19 PM PST Approved by: Sunday Jimenez MD on 05/24/2021 6:19 PM PST Station ID: [id number]
[2021-05-24 18:36] LABS: ALBUMIN 3.9 g/dL (3.2-5.5); ALBUMIN/GLOBULIN RATIO 1.1 (1.0-2.2); BILIRUBIN,TOTAL 0.8 mg/dL (0.2-1.0); CALCIUM 9.3 mg/dL (8.5-10.3); CREATININE 0.9 mg/dL (0.4-1.0); POTASSIUM 4.1 mmol/L (3.5-5.0); TOTAL PROTEIN 7.6 g/dL (6.7-8.2)
[2021-05-24 19:59] VITALS: BP 143/82
== END 2021-05-24 19:58 | disposition home or self-care (01) ==
LOC: ED 17:41
DX: R07.89 Other chest pain (principal); Z87.891 Personal history of nicotine dependence
CPT/HCPCS: 36415; 80053; 83690; 84443; 84484; 85025; 93005; 99283; 99284

== ENCOUNTER 2021-06-06 14:52 | Emergency (ER) | payer MEDICAID ==
[2021-06-06 15:03] VITALS: BP 142/83
--- NOTE | 2021-06-06 15:25 | ED Physician Documentation ---
History of Present Illness - Stated complaint Stated Complaint: R LOW LEG PX,SWELLING - Chief complaint Chief Complaint: Ext Problem - History obtained from History obtained from: Patient - History of Present Illness Timing: How many weeks ago (2) Pain level max: 5 Pain level now: 3 - Additonal information Additional information: 55-year-old female who presents to the emergency department right lower extremity pain and swelling. Mainly in the posterior right calf. Is been ongoing for about the past 2 weeks. Start herself on baby aspirin. Worse with movement, better with rest. No chest pain. No shortness of breath. She states that her doctor was going to send her for a DVT study, but has not been ordered yet so she came in for evaluation. No fevers. No chills. 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 CAR CLERK: None : Incontinence, Nocturia, Frequency HEENT: None Psych: Anxiety Musculoskeletal: None Derm: None - Past Surgical History Past Surgical History: Yes General: Hiatal hernia repair Ortho: Other /PULLMAN CAR CLERK: section, 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, Other Cardiovascular: Vascular surgery - Present Medications Home Medications: Ambulatory Orders Medication Instructions Recorded Confirmed Coral Calcium 1 each PO DAILY 02/12/21 02/12/21 Sena-C 1 each PO DAILY 02/12/21 02/12/21 Multivitamin 1 each PO DAILY 02/12/21 02/12/21 estradioL vaginal [Estrace vaginal] 1 applic VG DAILY 02/12/21 02/12/21 - Allergies Allergies/Adverse Reactions: Allergies Allergy/AdvReac Type Severity Reaction Status Date / Time morphine Allergy Intermediate Rash Verified 06/06/21 15:03 azithromycin Allergy Mild Nausea Verified 06/06/21 15:03 [From Zithromax Z-Cordell] Sulfa (Sulfonamide Allergy Rash Verified 06/06/21 15:03 Antibiotics) - Social History Does the pt smoke?: No Smoking Status: Former smoker Does the pt drink ETOH?: Yes Does the pt have substance abuse?: No - Immunizations Immunizations are current?: Yes - POLST Patient has POLST: No PD ED PE NORMAL - Vitals Vital signs reviewed: Yes - General General: Alert and oriented X 3, No acute distress - HEENT HEENT: Moist mucous membranes - Neck Neck: Supple, no meningeal sign - Cardiac Cardiac: RRR, Strong equal pulses - Respiratory Respiratory: No respiratory distress, Clear bilaterally - Abdomen Abdomen: Soft, Non tender, Non distended - Derm Derm: Warm and dry - Extremities Extremities: Other (Palpation over the posterior right calf. Mild swelling. Neurovascular intact. Mild bruising. No other skin changes.) - Neuro Neuro: Alert and oriented X 3 - Psych Psych: Normal mood, Normal affect Results - Vitals Vitals: Vital Signs - 24 hr 06/06/21 06/06/21 06/06/21 14:57 15:23 15:27 Temperature 36.8 C Heart Rate 71 73 Respiratory 18 18 Rate Blood Pressure 142/83 H O2 Saturation 99 98 06/06/21 17:03 Temperature Heart Rate 80 Respiratory 18 Rate Blood Pressure O2 Saturation 98 Oxygen O2 Source Room air - Rads (name of study) duplex US RLE Radiology: Final report received, EMP read contemporaneously, See rad report (No DVT. Positive for superficial thrombophlebitis) PD MEDICAL DECISION MAKING - ED course Complexity details: reviewed results, re-evaluated patient, considered differential, d/w patient ED course: 55-year-old female with superficial thrombophlebitis of the right calf. No DVT on ultrasound. No evidence of infection. Will place on anti-inflammatories for home. Patient counseled regarding signs and symptoms for which I believe and urgent re-evaluation would be necessary. Patient with good understanding of and agreement to plan and is comfortable going home at this time This document was made in part using voice recognition software. While efforts are made to proofread this document, sound alike and grammatical errors may occur. Departure - Departure Disposition: 01 Home, Self Care Clinical Impression: Superficial thrombophlebitis Qualifiers: Superficial thrombophlebitis-Involved body area: lower extremity Laterality: right Qualified Code(s): I80.01 - Phlebitis and thrombophlebitis of superficial vessels of right lower extremity Condition: Good Instructions: ED Phlebitis Superficial Follow-Up: Monae Nuñez ARNP [Primary Care Provider] - As Needed Comments: Ultrasound shows superficial thrombophlebitis. I would utilize Motrin and/or Aleve at home for this. You can use heating pads as well. This should resolve on its own. Follow-up with your doctor for further care. Discharge Date/Time: 06/06/21 17:04
--- NOTE | 2021-06-06 16:39 | Ultrasound Report ---
PROCEDURE: Duplex Ext Veins Right INDICATIONS: R LE swelling/pain TECHNIQUE: Real-time imaging, as well as color and pulse Doppler interrogation, were performed of the lower extr emity deep veins from the inguinal ligament to the popliteal fossa. COMPARISON: January 03, 2021. FINDINGS: The deep veins are normally compressible, and free of intraluminal thrombus. Color and pu lse Doppler demonstrate normal phasic intraluminal flow. There is normal augmentation response to di stal compression maneuver. Intraluminal material is seen in a cast superficial vein with surrounding edema, most consistent with IMPRESSION: 1. No evidence of DVT. 2. Superficial calf vein thrombophlebitis. Reviewed by: Guanaco Terrazas MD on 06/06/2021 4:38 PM PST Approved by: Guanaco Terrazas MD on 06/06/2021 4:38 PM PST Station ID: [id number]
== END 2021-06-06 17:04 | disposition home or self-care (01) ==
LOC: ED 14:52
DX: I80.01 Phlebitis and thrombophlebitis of superficial vessels of right lower extremity (principal); I73.9 Peripheral vascular disease, unspecified; Z87.891 Personal history of nicotine dependence
CPT/HCPCS: 99282; 99284

== ENCOUNTER 2021-06-20 08:00 | Outpatient (CLI) | payer MEDICAID ==
[2021-06-20 12:30] LABS: BILIRUBIN,URINE NEGATIVE (NEGATIVE); GLUCOSE, URINE (UA) NEGATIVE (NEGATIVE); KETONES,URINE (UA) NEGATIVE (NEGATIVE); LEUKOCYTE ESTERASE, URINE TRACE (NEGATIVE); NITRITE,URINE NEGATIVE (NEGATIVE); OCCULT BLOOD,URINE NEGATIVE (NEGATIVE); PROTEIN,URINE NEGATIVE (NEGATIVE); UROBILINOGEN,URINE 0.2 (NORMAL) E.U./dL (NORMAL)
[2021-06-20 12:59] LABS: BACTERIA,URINE Few /HPF (None Seen); CLARITY,URINE CLEAR (CLEAR); RBC,URINE 0-5 /HPF (0-5); SQUAMOUS EPITHELIAL CELL,UR MANY Squamous (<= Few)
== END 2021-06-20 23:59 ==
LOC: LAB.N 08:00
PROVIDERS: ATTEND Physician Assistant Medical
DX: R30.0 Dysuria (principal)
CPT/HCPCS: 81001; 87086

== ENCOUNTER 2021-06-29 08:00 | Outpatient (CLI) | payer MEDICAID | END 2021-06-29 23:59 | disposition home or self-care (01) | LOC: LAB 08:00 | PROVIDERS: ATTEND Family Medicine | DX: N39.0 Urinary tract infection, site not specified (principal) | CPT/HCPCS: 87086 ==

== ENCOUNTER 2021-07-04 08:00 | Outpatient (CLI) | payer MEDICAID ==
[2021-07-04 17:51] LABS: BASOPHILS % (AUTO) 0.7 %; EOSINOPHILS # (AUTO) 0.2 10^3/uL (0.0-0.7); EOSINOPHILS % (AUTO) 3.7 %; HCT - HEMATOCRIT 41.1 % (37.0-47.0); HGB - HEMOGLOBIN 13.3 g/dL (12.0-16.0); LYMPHOCYTES # (AUTO) 1.4 10^3/uL (1.5-3.5); LYMPHOCYTES % (AUTO) 33.9 %; MEAN CORPUSCULAR HEMOGLOBIN 30.6 pg (27.0-31.0); MEAN CORPUSCULAR HGB CONC 32.4 g/dL (32.0-36.0); MEAN CORPUSCULAR VOLUME 94.7 fL (81.0-99.0); MEAN PLATELET VOLUME 11.3 fL (7.9-10.8); MONOCYTES # (AUTO) 0.3 10^3/uL (0.0-1.0); NEUTROPHILS # (AUTO) 2.2 10^3/uL (1.5-6.6); NEUTROPHILS % (AUTO) 53.5 %; PLT - PLATELET COUNT 246 10^3/uL (130-450); RED BLOOD COUNT 4.34 10^6/uL (4.20-5.40); RED CELL DISTRIBUTION WIDTH 12.6 % (12.0-15.0); WHITE BLOOD COUNT 4.1 x10^3/uL (4.8-10.8)
[2021-07-04 18:05] LABS: ALBUMIN 4.2 g/dL (3.2-5.5); ALBUMIN/GLOBULIN RATIO 1.2 (1.0-2.2); BILIRUBIN,TOTAL 0.6 mg/dL (0.2-1.0); CALCIUM 9.5 mg/dL (8.5-10.3); CREATININE 0.8 mg/dL (0.4-1.0); POTASSIUM 4.6 mmol/L (3.5-5.0); TOTAL PROTEIN 7.7 g/dL (6.7-8.2)
[2021-07-04 18:31] LABS: THYROID STIMULATING HORMONE 2.33 uIU/mL (0.34-5.60)
== END 2021-07-04 23:59 ==
LOC: LAB.N 08:00
PROVIDERS: ATTEND Family Medicine
DX: M60.9 Myositis, unspecified (principal)
CPT/HCPCS: 36415; 80050; 82550

== ENCOUNTER 2021-07-04 08:00 | Outpatient (CLI) | payer MEDICAID ==
[2021-07-04 17:55] LABS: BILIRUBIN,URINE NEGATIVE (NEGATIVE); GLUCOSE, URINE (UA) NEGATIVE (NEGATIVE); KETONES,URINE (UA) NEGATIVE (NEGATIVE); LEUKOCYTE ESTERASE, URINE TRACE (NEGATIVE); NITRITE,URINE NEGATIVE (NEGATIVE); OCCULT BLOOD,URINE NEGATIVE (NEGATIVE); PH,URINE 5.5 PH (5.0-7.5); PROTEIN,URINE NEGATIVE (NEGATIVE); UROBILINOGEN,URINE 0.2 (NORMAL) E.U./dL (NORMAL)
[2021-07-04 17:58] LABS: CLARITY,URINE CLEAR (CLEAR)
[2021-07-04 18:07] LABS: BACTERIA,URINE Few /HPF (None Seen); RBC,URINE 0-5 /HPF (0-5); SQUAMOUS EPITHELIAL CELL,UR MOD Squamous (<= Few); WBC,URINE 0-3 /HPF (0-5)
== END 2021-07-04 23:59 ==
LOC: LAB.N 08:00
PROVIDERS: ATTEND Family Medicine
DX: R82.81 Pyuria (principal)
CPT/HCPCS: 81001; 87086

== ENCOUNTER 2021-07-06 10:48 | Outpatient (CLI) | payer MEDICAID | END 2021-07-06 10:49 | disposition home or self-care (01) | LOC: LAB.N 10:48 | PROVIDERS: ATTEND Family Medicine | DX: N39.0 Urinary tract infection, site not specified (principal) | CPT/HCPCS: 87086 ==

== ENCOUNTER 2021-07-12 20:46 | Outpatient (CLI) | payer MEDICAID ==
--- NOTE | 2021-07-13 16:45 | Ultrasound Report ---
PROCEDURE: Duplex Ext Veins Right INDICATIONS: RIGHT CALF PAIN TECHNIQUE: Real-time imaging, as well as color and pulse Doppler interrogation, were performed of the lower extr emity deep veins from the inguinal ligament to the popliteal fossa. COMPARISON: None. FINDINGS: The deep veins are normally compressible, and free of intraluminal thrombus. Color and pu lse Doppler demonstrate normal phasic intraluminal flow. There is normal augmentation response to di stal compression maneuver. Mild focus of fluid is noted within the posterior fossa measuring 1.9 x 0.5 cm. IMPRESSION: No deep venous thrombosis. Mild fluid within the posterior fossa. Pelvis could represent a Koehler's cyst, focus of hematoma or ab scess cannot be excluded. Reviewed by: Lizbeth Delgadillo MD on 07/13/2021 4:43 PM PDT Approved by: Lizbeth Delgadillo MD on 07/13/2021 4:43 PM PDT Station ID: [id number]
== END 2021-07-12 20:47 | disposition home or self-care (01) ==
LOC: DI 20:46
PROVIDERS: ATTEND Family Medicine
DX: M79.661 Pain in right lower leg (principal); R93.6 Abnormal findings on diagnostic imaging of limbs

== ENCOUNTER 2021-07-31 08:00 | Outpatient (CLI) | payer MEDICAID | END 2021-07-31 08:01 | disposition home or self-care (01) | LOC: LAB.N 08:00 | PROVIDERS: ATTEND Family Medicine | DX: N39.0 Urinary tract infection, site not specified (principal) | CPT/HCPCS: 87086 ==

== ENCOUNTER 2022-01-12 08:00 | Outpatient (CLI) | payer MEDICAID ==
[2022-01-12 18:42] LABS: BASOPHILS % (AUTO) 0.9 %; EOSINOPHILS # (AUTO) 0.2 10^3/uL (0.0-0.7); EOSINOPHILS % (AUTO) 3.4 %; HCT - HEMATOCRIT 38.2 % (37.0-47.0); HGB - HEMOGLOBIN 12.9 g/dL (12.0-16.0); LYMPHOCYTES # (AUTO) 1.8 10^3/uL (1.5-3.5); LYMPHOCYTES % (AUTO) 41.6 %; MEAN CORPUSCULAR HEMOGLOBIN 31.7 pg (27.0-31.0); MEAN CORPUSCULAR HGB CONC 33.8 g/dL (32.0-36.0); MEAN CORPUSCULAR VOLUME 93.9 fL (81.0-99.0); MEAN PLATELET VOLUME 10.9 fL (7.9-10.8); MONOCYTES # (AUTO) 0.4 10^3/uL (0.0-1.0); MONOCYTES % (AUTO) 8.4 %; NEUTROPHILS % (AUTO) 45.5 %; PLT - PLATELET COUNT 243 10^3/uL (130-450); RED BLOOD COUNT 4.07 10^6/uL (4.20-5.40); RED CELL DISTRIBUTION WIDTH 12.3 % (12.0-15.0); WHITE BLOOD COUNT 4.4 x10^3/uL (4.8-10.8)
[2022-01-12 18:44] LABS: ALBUMIN 4.2 g/dL (3.2-5.5); ALBUMIN/GLOBULIN RATIO 1.3 (1.0-2.2); BILIRUBIN,TOTAL 0.4 mg/dL (0.2-1.0); CALCIUM 9.8 mg/dL (8.5-10.3); CREATININE 0.8 mg/dL (0.4-1.0); POTASSIUM 4.1 mmol/L (3.5-5.0); TOTAL PROTEIN 7.5 g/dL (6.7-8.2)
== END 2022-01-12 23:59 | disposition home or self-care (01) ==
LOC: LAB.N 08:00
PROVIDERS: ATTEND Nurse Practitioner
DX: M79.604 Pain in right leg (principal)
CPT/HCPCS: 36415; 80053; 85025; 85379

== ENCOUNTER 2022-01-14 14:13 | Outpatient (CLI) | payer MEDICAID ==
--- NOTE | 2022-01-14 18:43 | XRAY Report ---
PROCEDURE: Pelvis 1 View INDICATIONS: PAIN IN RIGHT HIP TECHNIQUE: 1 view(s) of the pelvis acquired. COMPARISON: None. FINDINGS: Bones: No fractures or dislocations. Mild to moderate bilateral hip joint osteoarthritic changes are seen with joint space narrowing and subchondral sclerosis. No evidence of avascular necrosis of femo ral head. Degenerative disc disease in visualized lower lumbar spine is seen. No suspicious bony lesi ons. Soft tissues: Visualized bowel gas pattern is normal. No suspicious soft tissue calcifications. IMPRESSION: No acute pelvic fracture or dislocation. Mild to moderate bilateral hip joint osteoarthri tis. No evidence of avascular necrosis. Degenerative disc disease in visualized lower lumbar spine. Reviewed by: Porter Thrasher MD on 01/14/2022 6:42 PM PDT Approved by: Porter Thrasher MD on 01/14/2022 6:42 PM PDT Station ID: [id number]
== END 2022-01-14 14:14 | disposition home or self-care (01) ==
LOC: DI 14:13
PROVIDERS: ATTEND Nurse Practitioner
DX: M16.0 Bilateral primary osteoarthritis of hip (principal); M51.36 Other intervertebral disc degeneration, lumbar region

== ENCOUNTER 2022-03-05 08:00 | Outpatient (CLI) | payer MEDICAID ==
--- NOTE | 2022-03-06 14:12 | XRAY Report ---
PROCEDURE: Chest 2 View X-Ray INDICATIONS: ACUTE UPPER RESPIRATORY INFECTION TECHNIQUE: 2 views of the chest were acquired. COMPARISON: Chest x-ray 05/24/2021 FINDINGS: Surgical changes and devices: None. Lungs and pleura: No pleural effusions or pneumothorax. Lungs are clear. Mediastinum: Mediastinal contours are normal. Heart size is normal. Bones and chest wall: No suspicious bony abnormalities. Soft tissues appear unremarkable. IMPRESSION: No acute pulmonary process. Reviewed by: Lizbeth Delgadillo MD on 03/06/2022 2:11 PM PST Approved by: Lizbeth Delgadillo MD on 03/06/2022 2:11 PM [facility] Station ID: [id number]
== END 2022-03-05 23:59 | disposition home or self-care (01) ==
LOC: DI.N 08:00
PROVIDERS: ATTEND Nurse Practitioner
DX: J06.9 Acute upper respiratory infection, unspecified (principal)

== ENCOUNTER 2022-03-20 20:39 | Outpatient (CLI) | payer MEDICAID ==
--- NOTE | 2022-03-21 10:59 | XRAY Report ---
PROCEDURE: Hip w/Pelvis 2-3V RT INDICATIONS: HIP PAIN TECHNIQUE: AP pelvis with lateral view(s) of the right hip(s). COMPARISON: Pelvis radiograph 01/14/2022. FINDINGS: Bones: No fractures or dislocations. Pelvic ring appears intact. No suspicious bony lesions. Mild bilateral hip joint space narrowing, left slightly worse than right. Soft tissues: The visualized bowel gas pattern is normal. No suspicious soft tissue calcifications. IMPRESSION: Mild degenerative changes of both hips. Reviewed by: Shankar Reed MD on 03/21/2022 10:57 AM PST Approved by: Shankar Reed MD on 03/21/2022 10:57 AM PST Station ID: [id number]
== END 2022-03-20 20:40 | disposition home or self-care (01) ==
LOC: DI 20:39
PROVIDERS: ATTEND Orthopaedic Surgery
DX: M16.0 Bilateral primary osteoarthritis of hip (principal)

== ENCOUNTER 2022-04-03 14:11 | Outpatient (CLI) | payer MEDICAID ==
--- NOTE | 2022-04-03 15:09 | DEXA Report ---
PROCEDURE: Dexa Spine and/or Hip INDICATIONS: POSTMENOPAUSAL TECHNIQUE: Dual energy x-ray absorptiometry (DXA) was performed on a Pond5 System. Regions measur ed are the AP Spine, femoral neck, and if needed forearm. COMPARISON: None. FINDINGS: Lumbar Spine: Bone Mineral Density 1.3 g/cm/cm,T score 0.6, Left Femoral Neck: Bone Mineral Density 0.88 g/cm/cm, T score -1.2, Left Hip: Bone Mineral Density 0.95 g/cm/cm,T score -0.4, (T score greater or equal to -1.0: NORMAL) (T score from -1.1 to -2.4: OSTEOPENIA) (T score less than or equal to -2.5 to: OSTEOPOROSIS) Impression: Osteopenia of the left femoral neck. Patients with diagnosis of osteoporosis or osteopenia should have regular bone mineral density assess ment. For those eligible for Medicare, routine testing is allowed once every 2 years. Testing frequ ency can be increased for patients who have rapidly progressing disease or for those who are receivin g medical therapy to restore bone mass. Reviewed by: Randall Garza MD on 04/03/2022 2:08 PM [place] Approved by: Randall Garza MD on 04/03/2022 2:08 PM [place] Station ID: [id number]
== END 2022-04-03 14:12 | disposition home or self-care (01) ==
LOC: DI 14:11
PROVIDERS: ATTEND Registered Nurse
DX: M85.88 Other specified disorders of bone density and structure, other site (principal); Z78.0 Asymptomatic menopausal state

== ENCOUNTER 2022-04-03 14:13 | Outpatient (CLI) | payer MEDICAID ==
--- NOTE | 2022-04-04 11:58 | Mammography Report ---
BILATERAL DIGITAL SCREENING MAMMOGRAM 3D/2D: 04/03/2022 CLINICAL: Routine screening. Comparison is made to exams dated: 02/20/2021 mammogram and 03/10/2019 mammogram - [facility]. There are scattered areas of fibroglandular density in both breasts (category b / 25%-50% glandular t issue). No significant masses, calcifications, or other findings are seen in either breast. There has been no significant interval change. IMPRESSION: NEGATIVE There is no mammographic evidence of malignancy. A 1 year screening mammogram is recommended. Based on the Tyrer Cuzick model (a risk assessment model) the patients lifetime risk is 5.1% and her 10 year risk is 1.9%. According to the ACR, ACS, and NCCN guidelines, an annual breast MRI exam barry g with mammogram is recommended if the patients lifetime risk is 20% or greater. This exam was interpreted at Station ID: [id number]. NOTE: For mammograms, a report in lay terms will be sent to the patient. Approximately 15% of breast malignancies will not be visualized mammographically. In the management of a palpable breast mass, a negative mammogram must not discourage biopsy of a clinically suspicious lesion. Electronically Signed By: Shankar haq/pete:04/03/2022 15:41:36 ACR BI-RADS Category 1: Negative 3341F PARENCHYMAL PATTERN: (A) - The breast(s) demonstrate(s) scattered fibroglandular densities. BI-RADS CATEGORY: (1) - 1 RECOMMENDATION: (ANNUAL) - Recommend routine annual screening mammography. [id number] 1 year screening LATERALITY: (B)
== END 2022-04-03 14:14 | disposition home or self-care (01) ==
LOC: DI 14:13
PROVIDERS: ATTEND Registered Nurse
DX: Z12.31 Encounter for screening mammogram for malignant neoplasm of breast (principal)

== ENCOUNTER 2022-05-08 08:00 | Outpatient (CLI) | payer MEDICAID ==
[2022-05-09 21:46] LABS: BACTERIAL VAGINOSIS DNA NEGATIVE (NEGATIVE); CANDIDA GLABRATA DNA NEGATIVE (NEGATIVE); CANDIDA GROUP DNA NEGATIVE (NEGATIVE); CANDIDA KRUSEI DNA NEGATIVE (NEGATIVE); TRICHOMONAS VAGINALIS DNA NEGATIVE (NEGATIVE)
== END 2022-05-08 23:59 | disposition home or self-care (01) ==
LOC: LAB.WC 08:00
PROVIDERS: ATTEND Nurse Practitioner
DX: R35.0 Frequency of micturition (principal); R30.0 Dysuria; R10.2 Pelvic and perineal pain
CPT/HCPCS: 81514

== ENCOUNTER 2022-07-25 17:27 | Outpatient (CLI) | payer MEDICAID ==
--- NOTE | 2022-07-26 10:46 | Ultrasound Report ---
PROCEDURE: Pelvic w/Transvaginal INDICATIONS: PELVIC PAIN TECHNIQUE: Real-time scanning was performed of the pelvic organs, with image documentation. Additional endovagi nal scanning was necessary due to incomplete visualization of the adnexal and endometrial structures by transabdominal scanning. COMPARISON: None. FINDINGS: Markedly suboptimal evaluation due to body habitus. Uterus: Uterus is anteverted and normal in size at 8.2 x 4.2 x 4.9 cm. The myometrium is heterogene ous. The endometrium measures 3 mm in combined thickness. Fluid within the endometrial cavity. Ante rior, intramural fibroid measuring 1.8 x 1.6 x 1.6 cm, previously 2.0 x 1.7 x 2 cm. Ovaries: Ovaries not visualized. Other: No pathologic free abdominal or pelvic fluid. IMPRESSION: Stable intramural fibroid. Ovaries not visualized. Reviewed by: Kosta Camacho on 07/26/2022 10:44 AM PDT Approved by: Kosta Camacho on 07/26/2022 10:44 AM PDT Station ID: [id number]
== END 2022-07-25 17:28 | disposition home or self-care (01) ==
LOC: DI 17:27
PROVIDERS: ATTEND Nurse Practitioner
DX: R10.2 Pelvic and perineal pain (principal); D25.1 Intramural leiomyoma of uterus

== ENCOUNTER 2022-08-06 15:04 | Emergency (ER) | payer MEDICAID ==
--- NOTE | 2022-08-06 15:26 | ED Physician Documentation ---
PD HPI LOWER EXT INJURY - Stated complaint Stated Complaint: CHEST PX, RT LEG PX/SWELLING - Chief complaint Chief Complaint: General - History obtained from History obtained from: Patient - History of Present Illness PD HPI LOW EXT INJURY LOCATION: Right, Lower leg, Calf Type of injury: Other (developed posterior lower calf tenderness and firmness over several days. Has had anterior/left chest pain intermittently for couple of weeks as well. Chest pain is not pleuritic, nor associated with eating, position, exertion.). No: Fall, Twist Timing - onset: How many days ago Timing - duration: Days Timing - details: Gradual onset, Still present Associated symptoms: Swelling, Discolored (mild redness and warmth in the tender area of calf.). No: Weakness, Numbness Review of Systems Constitutional: reports: Myalgias. denies: Fever, Chills Nose: denies: Rhinorrhea / runny nose, Congestion Throat: denies: Sore throat Cardiac: reports: Chest pain / pressure, Calf pain. 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 ) - Present Medications Home Medications: Ambulatory Orders Medication Instructions Recorded Confirmed Coral Calcium 1 each PO DAILY 02/12/21 02/12/21 Sena-C 1 each PO DAILY 02/12/21 02/12/21 Multivitamin 1 each PO DAILY 02/12/21 02/12/21 estradioL vaginal [Estrace vaginal] 1 applic VG DAILY 02/12/21 02/12/21 Lidocaine Patch 5% [Lidoderm Patch] 1 patch TOP DAILY PRN #10 patch 08/06/22 Meloxicam [Mobic] 7.5 mg PO BID 10 Days #20 tablet 08/06/22 - Allergies Allergies/Adverse Reactions: Allergies Allergy/AdvReac Type Severity Reaction Status Date / Time morphine Allergy Intermediate Rash Verified 08/06/22 15:18 azithromycin Allergy Mild Nausea Verified 08/06/22 15:18 [From Zithromax Z-Cordell] Sulfa (Sulfonamide Allergy Rash Verified 08/06/22 15:18 Antibiotics) - Social History Does the pt smoke?: No Smoking Status: Former smoker Does the pt drink ETOH?: Yes Does the pt have substance abuse?: No - Immunizations Immunizations are current?: Yes - POLST Patient has POLST: No PD ED PE NORMAL - Vitals Vital signs reviewed: Yes - General General: Alert and oriented X 3, No acute distress, Well developed/nourished - Cardiac Cardiac: RRR, No murmur - Respiratory Respiratory: Clear bilaterally, Other (no chestwall tenderness. ) - Abdomen Abdomen: Soft, Non tender - Back Back: No CVA TTP - Derm Derm: Normal color, Warm and dry - Extremities Extremities: Other (oval to round area of tenderness superficially lower right psoterior calf. No deeper calf tenderness. ) - Neuro Neuro: Alert and oriented X 3, No motor deficit, No sensory deficit Results - Vitals Vitals: Vital Signs - 24 hr 08/06/22 08/06/22 15:09 17:27 Temperature 36.4 C L Heart Rate 57 L 56 L Respiratory 16 16 Rate Blood Pressure 193/80 H 189/86 H O2 Saturation 100 100 Oxygen O2 Source Room air - EKG (time done) 15:22 EKG releavant findings:: EKG personally interpreted by author of this note. Relevant findings are: Rate: Rate (enter#) (66) Rhythm: NSR Ken[place]: Normal Intervals: Normal [place] QRS: Normal Ischemia: Normal ST segments. No: ST elevation c/w ischemia, ST depression - Labs Labs: Laboratory Tests 08/06/22 08/06/22 08/06/22 15:30 15:30 15:30 WBC 4.7 L RBC 4.12 L Hgb 12.7 Hct 39.1 MCV 94.9 MCH 30.8 MCHC 32.5 RDW 12.7 Plt Count 231 MPV 9.5 Neut # (Auto) 2.1 Lymph # (Auto) 1.8 [place] # (Auto) 0.5 Eos # (Auto) 0.2 Baso # (Auto) 0.0 Absolute Nucleated RBC 0.00 Nucleated RBC % 0.0 D-Dimer 238.0 Sodium Potassium Chloride Carbon Dioxide Anion Gap BUN Creatinine Estimated GFR (MDRD) Glucose Calcium Total Bilirubin AST ALT Alkaline Phosphatase Troponin I High Sens 2.9 Total Protein Albumin Globulin Albumin/Globulin Ratio Lipase 08/06/22 15:30 WBC RBC Hgb Hct MCV MCH MCHC RDW Plt Count MPV Neut # (Auto) Lymph # (Auto) [place] # (Auto) Eos # (Auto) Baso # (Auto) Absolute Nucleated RBC Nucleated RBC % D-Dimer Sodium 138 Potassium 4.2 Chloride 103 Carbon Dioxide 26 Anion Gap 9.0 BUN 16 Creatinine 0.8 Estimated GFR (MDRD) 74 L Glucose 89 Calcium 9.3 Total Bilirubin 0.3 AST 18 ALT 15 Alkaline Phosphatase 86 Troponin I High Sens Total Protein 6.8 Albumin 3.8 Globulin 3.0 Albumin/Globulin Ratio 1.3 Lipase 65 H - Rads (name of study) chest xray Relevant Findings:: Prelim report reviewed, EMP independent interpretation of test (no acute abnormality.), See rad report lower ext duplex Relevant Findings:: Prelim report reviewed, See rad report, Other ([facility] states no DVT. ) PD Medical Decision Making - ED course Complexity details: reviewed results, considered differential, d/w patient ED course: patient with recent area of tenderness and firmness posterior lower right calf. Mild edema in lower leg. Has also had episodes of chest pain without exertion nor obvious provocation anterior/left chest. Concern for DVT/PE. the chest pain episodes have been intermittent for a week or more. No effect with eating nor breathing nor palpation. chest xray is clear without acute changes. ECG does not have any ischemic changes. Her troponin and BNP are normal, as is the D-dimer (age adjusted by YEARS normal would be under 290, hers is 89). Her calf has palpable tenderness on superficial subcut area in rounded/oval patch. There is overlying dry skin area, but no skin openings. Mild warmth but not notable warm nor red. The tenderness is not in dermatomal pattern. It seems clinically c/w superficial phlebitis. There is similar small area medial lower leg just prox to ankle. Clinically does not seem DVT and with the D-dimer normal, I feel DVT and PE are excluded. Also no MA/CHF/pneumonia/effusion/PTX on testing. Consider musculoskeletal most likely origin. Departure - Departure Disposition: 01 Home, Self Care Clinical Impression: Superficial phlebitis, Chest pain Condition: Stable Record reviewed to determine appropriate education?: Yes Instructions: ED Chest Pain Atypical Unkn Cause Follow-Up: Monae Nuñez ARNP [Primary Care Provider] - Prescriptions: Lidocaine Patch 5% [Lidoderm Patch] 1 patch TOP DAILY PRN #10 patch PRN Reason: pain Meloxicam [Mobic] 7.5 mg PO BID 10 Days #20 tablet Comments: Your EKG, chest x-ray, blood tests are normal without any signs to indicate fluid in the lungs, pneumonia, collapsed lung, heart attack, heart failure, blood clots. The chest pain may be musculoskeletal and not can develop without necessarily particular injury. I would suggest trying a different anti-inflammatory and see if that helps better than the ibuprofen had. I have prescribed meloxicam as a longer acting anti-inflammatory so it only twice a day. Take it with food. Add Tylenol every 4-6 hours if needed for pain. The right leg clinically looks like superficial phlebitis which is inflammation of the surface veins. Treat this with warm moist towels periodically to help promote blood flow in the area and unclogging of the surface veins. With your normal blood test screening for blood clots, there is no indication for a deeper vein involvement at this time. Recheck if increasing symptoms. You can use topical anesthetic in the area to help with some of the discomfort. Recheck if not improved well over the next several days and resolved by a week. I sent your prescription to preferred pharmacy. Discharge Date/Time: 08/06/22 17:30
[2022-08-06 15:50] LABS: BASOPHILS % (AUTO) 0.9 %; EOSINOPHILS # (AUTO) 0.2 10^3/uL (0.0-0.7); EOSINOPHILS % (AUTO) 4.3 %; HCT - HEMATOCRIT 39.1 % (37.0-47.0); HGB - HEMOGLOBIN 12.7 g/dL (12.0-16.0); LYMPHOCYTES # (AUTO) 1.8 10^3/uL (1.5-3.5); LYMPHOCYTES % (AUTO) 39.6 %; MEAN CORPUSCULAR HEMOGLOBIN 30.8 pg (27.0-31.0); MEAN CORPUSCULAR HGB CONC 32.5 g/dL (32.0-36.0); MEAN CORPUSCULAR VOLUME 94.9 fL (81.0-99.0); MEAN PLATELET VOLUME 9.5 fL (7.9-10.8); MONOCYTES # (AUTO) 0.5 10^3/uL (0.0-1.0); MONOCYTES % (AUTO) 9.9 %; NEUTROPHILS # (AUTO) 2.1 10^3/uL (1.5-6.6); NEUTROPHILS % (AUTO) 45.1 %; PLT - PLATELET COUNT 231 10^3/uL (130-450); RED BLOOD COUNT 4.12 10^6/uL (4.20-5.40); RED CELL DISTRIBUTION WIDTH 12.7 % (12.0-15.0); WHITE BLOOD COUNT 4.7 x10^3/uL (4.8-10.8)
[2022-08-06 16:15] LABS: ALBUMIN 3.8 g/dL (3.2-5.5); ALBUMIN/GLOBULIN RATIO 1.3 (1.0-2.2); BILIRUBIN,TOTAL 0.3 mg/dL (0.2-1.0); CALCIUM 9.3 mg/dL (8.5-10.3); CREATININE 0.8 mg/dL (0.4-1.0); POTASSIUM 4.2 mmol/L (3.5-5.0); TOTAL PROTEIN 6.8 g/dL (6.7-8.2)
--- NOTE | 2022-08-06 16:16 | XRAY Report ---
PROCEDURE: Chest 1 View X-Ray INDICATIONS: Chest Pain TECHNIQUE: One view of the chest was acquired. COMPARISON: None. FINDINGS: Surgical changes and devices: None. Lungs and pleura: No pleural effusions or pneumothorax. Lungs are clear. Mediastinum: Mediastinal contours appear normal. Heart size is normal. Bones and chest wall: No suspicious bony lesions. Overlying soft tissues appear unremarkable. IMPRESSION: No acute cardiopulmonary findings Reviewed by: Shivam Glaser MD on 08/06/2022 3:14 PM AKDT Approved by: Shivam Glaser MD on 08/06/2022 3:14 PM AKDT Station ID: [id number]
[2022-08-06] MEDS ORDERED: NAPROXEN 250 MG TABLET PO STA (17:12)
[2022-08-06] MEDS ORDERED: LIDOCAINE PATCH 5% TOP STA (17:12)
[2022-08-06 17:28] VITALS: BP 189/86
== END 2022-08-06 17:30 | disposition home or self-care (01) ==
LOC: ED 15:04
DX: I80.3 Phlebitis and thrombophlebitis of lower extremities, unspecified (principal); R07.9 Chest pain, unspecified; Z87.891 Personal history of nicotine dependence
CPT/HCPCS: 36415; 71045; 80053; 83690; 84484; 85025; 85379; 93005; 99284; A9270

== ENCOUNTER 2022-08-20 07:00 | Outpatient (CLI) | payer MEDICAID ==
--- NOTE | 2022-08-21 09:48 | XRAY Report ---
PROCEDURE: Chest 2 View X-Ray INDICATIONS: FEVER WITH CHILLS TECHNIQUE: 2 views of the chest were acquired. COMPARISON: 08/06/2022. FINDINGS: Surgical changes and devices: None. Lungs and pleura: No pleural effusions or pneumothorax. Lungs are clear. Mediastinum: Mediastinal contours appear normal. Heart size is normal. Bones and chest wall: No suspicious bony lesions. Overlying soft tissues appear unremarkable. IMPRESSION: No acute cardiopulmonary process. Reviewed by: Porter Lomax MD on 08/21/2022 9:47 AM PDT Approved by: Porter Lomax MD on 08/21/2022 9:47 AM PDT Station ID: [id number]
== END 2022-08-20 23:59 | disposition home or self-care (01) ==
LOC: DI.S 07:00
PROVIDERS: ATTEND Physician Assistant Medical
DX: R05.9 Cough, unspecified (principal); R06.02 Shortness of breath

== ENCOUNTER 2022-08-29 21:52 | Outpatient (CLI) | payer MEDICAID ==
--- NOTE | 2022-08-30 16:29 | Ultrasound Report ---
PROCEDURE: Duplex Ext Veins Right INDICATIONS: RIGHT CALF PAIN TECHNIQUE: Real-time imaging, as well as color and pulse Doppler interrogation, were performed of the lower extr emity deep veins from the inguinal ligament to the popliteal fossa. COMPARISON: None. FINDINGS: The deep veins are normally compressible, and free of intraluminal thrombus. Color and pu lse Doppler demonstrate normal phasic intraluminal flow. There is normal augmentation response to di stal compression maneuver. There is fluid along the right lateral knee measuring 38 5 5 x 19 mm. IMPRESSION: No deep venous or process. Mild fluid along the lateral knee as above. Reviewed by: Lizbeth Delgadillo MD on 08/30/2022 4:27 PM PDT Approved by: Lizbeth Delgadillo MD on 08/30/2022 4:27 PM PDT Station ID: [id number]
== END 2022-08-29 21:53 | disposition home or self-care (01) ==
LOC: DI 21:52
PROVIDERS: ATTEND Physician Assistant Medical
DX: M79.661 Pain in right lower leg (principal); M25.461 Effusion, right knee

== ENCOUNTER 2022-10-15 13:32 | Emergency (ER) | payer MEDICAID ==
--- NOTE | 2022-10-15 15:08 | ED Physician Documentation ---
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 ) - Present Medications Home Medications: Ambulatory Orders Medication Instructions Recorded Confirmed Coral Calcium 1 each PO DAILY 02/12/21 02/12/21 Sena-C 1 each PO DAILY 02/12/21 02/12/21 Multivitamin 1 each PO DAILY 02/12/21 02/12/21 estradioL vaginal [Estrace vaginal] 1 applic VG DAILY 02/12/21 02/12/21 Lidocaine Patch 5% [Lidoderm Patch] 1 patch TOP DAILY PRN #10 patch 08/06/22 Meloxicam [Mobic] 7.5 mg PO BID 10 Days #20 tablet 08/06/22 Meloxicam [Mobic] 7.5 mg PO BID 10 Days #20 tablet 10/15/22 - Allergies Allergies/Adverse Reactions: Allergies Allergy/AdvReac Type Severity Reaction Status Date / Time morphine Allergy Intermediate Rash Verified 10/15/22 13:41 azithromycin Allergy Mild Nausea Verified 10/15/22 13:41 [From Zithromax Z-Cordell] Sulfa (Sulfonamide Allergy Rash Verified 10/15/22 13:41 Antibiotics) - Social History Does the pt smoke?: No Smoking Status: Former smoker Does the pt drink ETOH?: Yes Does the pt have substance abuse?: No - Immunizations Immunizations are current?: Yes - POLST Patient has POLST: No Results - Vitals Vitals: Vital Signs - 24 hr 10/15/22 10/15/22 10/15/22 13:41 15:33 16:13 Temperature 36.6 C Heart Rate 73 Respiratory 18 20 20 Rate Blood Pressure 141/79 H O2 Saturation 99 10/15/22 10/15/22 10/15/22 16:51 17:07 17:21 Temperature 36.7 C Heart Rate 56 L Respiratory 18 20 20 Rate Blood Pressure 143/67 H O2 Saturation 100 Oxygen O2 Source Room air - Labs Labs: Laboratory Tests 10/15/22 10/15/22 15:56 15:56 WBC 4.0 L RBC 3.78 L Hgb 11.6 L Hct 35.5 L MCV 93.9 MCH 30.7 MCHC 32.7 RDW 12.5 Plt Count 243 MPV 9.0 Neut # (Auto) 1.6 Lymph # (Auto) 1.8 [place] # (Auto) 0.4 Eos # (Auto) 0.1 Baso # (Auto) 0.0 Absolute Nucleated RBC 0.00 Nucleated RBC % 0.0 Sodium 138 Potassium 3.9 Chloride 102 Carbon Dioxide 26 Anion Gap 10.0 BUN 18 Creatinine 0.8 Estimated GFR (MDRD) 73 L Glucose 91 Calcium 9.0 Total Creatine Kinase 58 C-Reactive Protein < 1.0 - Rads (name of study) right leg duplex. Relevant Findings:: Other ([facility] states no DVT. ) PD Medical Decision Making - ED course Complexity details: reviewed results, considered differential (had area of redness and swelling medial to posterior right lower leg that improved concurrent with Keflex antibiotic. Has some swelling of lower leg and ankle still. Also pain right lateral hip at greater trochanter area ongoing without noted injury per se. But pain with walking and rotating at hip.), d/w patient ED course: the patient had apparent cellulitis, though consider whether it was patch of superficial phlebitis that improved with time vs. the antibiotics did. Concern for DVT versus venous/lymphatic edema. Got duplex and no DVT. Other consideration with the leg pain and hip oain, with recent ? cellulitis, would be extension or stelliting of infection to deeper area/layer. Can get CBC, CRP, CK to eval for deeper component. These tests resulted normal, so I do not see indicator of any deeper aspect of infection. The right greater trochanter is focally tender without redness. pain elicited with abduction and external rotation of hip. Pain is at the trochanter and not hip joint. Local injection with Lidocaine and Kenalog at the site after skin prep. No complications. Patient says it was starting to feel improvement after just short while. It is c/w bursitis in that area. Departure - Departure Disposition: 01 Home, Self Care Clinical Impression: Greater trochanteric bursitis of right hip, Swelling of lower leg Condition: Stable Record reviewed to determine appropriate education?: Yes Follow-Up: Monae Nuñez ARNP [Primary Care Provider] - Prescriptions: Meloxicam [Mobic] 7.5 mg PO BID 10 Days #20 tablet Comments: Your ultrasound did not show any signs of blood clots. The pain at the hip is very consistent with inflammation at the tendon or bursa at that bony point goal to greater trochanter. I believe it is a bursitis in that area. I did a local injection with some steroid anti-inflammatory. We will see if that improves it over the next several days. The swelling in your lower leg presumably relates to the recent skin infection. The infection appears cleared at this point. I would assume the swelling from that cause some impairment of the return lymphatic flow and thus the edema. Elevate and compressive socks and you could try some gentle massage from the ankle up to improve lymphatic return flow. I would presume the edema will get better over the next several days to a week. We can try a anti-inflammatory to help with the general discomfort. I wrote a prescription for meloxicam twice daily for the next 7 to 10 days. I sent that to the [facility] in [place]. Follow-up with your primary care later this week as scheduled. Your blood test here included a blood count/white cell count that was normal and also inflammatory markers and a test to look for any muscle breakdown. These were negative. Therefore I do not have any indication of a deeper or continued infection process. Discharge Date/Time: 10/15/22 17:53
[2022-10-15] MEDS ORDERED: TRIAMCINOLONE 40 MG/ML VIAL MC STA (15:45)
[2022-10-15] MEDS ORDERED: NAPROXEN 250 MG TABLET PO STA (15:46)
[2022-10-15 16:10] LABS: EOSINOPHILS # (AUTO) 0.1 10^3/uL (0.0-0.7); EOSINOPHILS % (AUTO) 2.5 %; HCT - HEMATOCRIT 35.5 % (37.0-47.0); HGB - HEMOGLOBIN 11.6 g/dL (12.0-16.0); LYMPHOCYTES # (AUTO) 1.8 10^3/uL (1.5-3.5); LYMPHOCYTES % (AUTO) 46.1 %; MEAN CORPUSCULAR HEMOGLOBIN 30.7 pg (27.0-31.0); MEAN CORPUSCULAR HGB CONC 32.7 g/dL (32.0-36.0); MEAN CORPUSCULAR VOLUME 93.9 fL (81.0-99.0); MONOCYTES # (AUTO) 0.4 10^3/uL (0.0-1.0); MONOCYTES % (AUTO) 10.8 %; NEUTROPHILS # (AUTO) 1.6 10^3/uL (1.5-6.6); NEUTROPHILS % (AUTO) 39.6 %; PLT - PLATELET COUNT 243 10^3/uL (130-450); RED BLOOD COUNT 3.78 10^6/uL (4.20-5.40); RED CELL DISTRIBUTION WIDTH 12.5 % (12.0-15.0)
[2022-10-15 16:26] LABS: BUN - BLOOD UREA NITROGEN 18 mg/dL (6-20); CARBON DIOXIDE - CO2 26 mmol/L (21-32); CHLORIDE 102 mmol/L (101-111); CK- CREATINE KINASE 58 IU/L (22-269); CREATININE 0.8 mg/dL (0.4-1.0); GFR - MDRD 73 (>89); GLUCOSE 91 mg/dL (70-100); POTASSIUM 3.9 mmol/L (3.5-5.0); SODIUM 138 mmol/L (135-145)
[2022-10-15 16:52] LABS: CRP - C-REACTIVE PROTEIN < 1.0 mg/dL (0-1.0)
--- NOTE | 2022-10-15 17:23 | Ultrasound Report ---
PROCEDURE: Duplex Ext Veins Right INDICATIONS: pain and swelling right leg; recent cellulitis TECHNIQUE: Real-time imaging, as well as color and pulse Doppler interrogation, were performed of the lower extr emity deep veins from the inguinal ligament to the popliteal fossa. COMPARISON: None. FINDINGS: The deep veins are normally compressible, and free of intraluminal thrombus. Color and pu lse Doppler demonstrate normal phasic intraluminal flow. There is normal augmentation response to di stal compression maneuver. IMPRESSION: No DVT in the right leg Reviewed by: Kieran Briceno on 10/15/2022 4:22 PM AKASH Approved by: Kieran Briceno on 10/15/2022 4:22 PM AKASH Station ID: [id number]
[2022-10-15 17:25] VITALS: BP 143/67
== END 2022-10-15 17:53 | disposition home or self-care (01) ==
LOC: ED 13:32
DX: M70.61 Trochanteric bursitis, right hip (principal); R60.0 Localized edema; Z87.891 Personal history of nicotine dependence; M79.661 Pain in right lower leg; M25.551 Pain in right hip
CPT/HCPCS: 20552; 36415; 80048; 82550; 85025; 86140; 93971; 99284; A9270

== ENCOUNTER 2022-11-14 17:47 | Emergency (ER) | payer MEDICAID ==
[2022-11-14 18:17] LABS: BASOPHILS % (AUTO) 0.5 %; EOSINOPHILS # (AUTO) 0.1 10^3/uL (0.0-0.7); EOSINOPHILS % (AUTO) 1.3 %; HCT - HEMATOCRIT 40.1 % (37.0-47.0); HGB - HEMOGLOBIN 13.2 g/dL (12.0-16.0); LYMPHOCYTES # (AUTO) 2.3 10^3/uL (1.5-3.5); LYMPHOCYTES % (AUTO) 41.2 %; MEAN CORPUSCULAR HEMOGLOBIN 31.4 pg (27.0-31.0); MEAN CORPUSCULAR HGB CONC 32.9 g/dL (32.0-36.0); MEAN CORPUSCULAR VOLUME 95.2 fL (81.0-99.0); MEAN PLATELET VOLUME 9.2 fL (7.9-10.8); MONOCYTES # (AUTO) 0.4 10^3/uL (0.0-1.0); MONOCYTES % (AUTO) 6.9 %; NEUTROPHILS # (AUTO) 2.7 10^3/uL (1.5-6.6); NEUTROPHILS % (AUTO) 49.7 %; PLT - PLATELET COUNT 241 10^3/uL (130-450); RED BLOOD COUNT 4.21 10^6/uL (4.20-5.40); RED CELL DISTRIBUTION WIDTH 12.9 % (12.0-15.0); WHITE BLOOD COUNT 5.5 x10^3/uL (4.8-10.8)
[2022-11-14 18:21] LABS: BILIRUBIN,URINE NEGATIVE (NEGATIVE); GLUCOSE, URINE (UA) NEGATIVE (NEGATIVE); KETONES,URINE (UA) NEGATIVE (NEGATIVE); LEUKOCYTE ESTERASE, URINE NEGATIVE (NEGATIVE); NITRITE,URINE NEGATIVE (NEGATIVE); OCCULT BLOOD,URINE NEGATIVE (NEGATIVE); PH,URINE 5.5 PH (5.0-7.5); PROTEIN,URINE NEGATIVE (NEGATIVE); UROBILINOGEN,URINE 0.2 (NORMAL) E.U./dL (NORMAL)
[2022-11-14 18:22] LABS: CLARITY,URINE CLEAR (CLEAR)
[2022-11-14 18:31] LABS: ALBUMIN 4.5 g/dL (3.2-5.5); ALBUMIN/GLOBULIN RATIO 1.3 (1.0-2.2); BILIRUBIN,TOTAL 0.4 mg/dL (0.2-1.0); CALCIUM 9.8 mg/dL (8.5-10.3); CREATININE 0.8 mg/dL (0.6-1.3); POTASSIUM 3.8 mmol/L (3.5-4.5); TOTAL PROTEIN 7.9 g/dL (6.4-8.9)
--- NOTE | 2022-11-14 18:39 | ED Physician Documentation ---
History of Present Illness - Stated complaint Stated Complaint: FEVER/RT SIDE LOWER ABD PX - Chief complaint Chief Complaint: Abd Pain - History obtained from History obtained from: Patient - History of Present Illness Pain level max: 6 Pain level now: 3 - Additonal information Additional information: Patient is a 57-year-old female who presents to the emergency department stating she has been feeling generally unwell for the past 1 month. She states she has some right lower quadrant abdominal pain as well. Every once in a while it feels like it "catches". She states it is worse with walking, has been using Motrin and Aleve at home. No diarrhea or constipation. No urinary symptoms. She states she has had night sweats. No coughing. No vomiting. No other abdominal pain. She states she just feels tired and weak. Review of Systems Constitutional: reports: Chills. 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 ) - Present Medications Home Medications: Ambulatory Orders Medication Instructions Recorded Confirmed Coral Calcium 1 each PO DAILY 02/12/21 02/12/21 Sena-C 1 each PO DAILY 02/12/21 02/12/21 Multivitamin 1 each PO DAILY 02/12/21 02/12/21 estradioL vaginal [Estrace vaginal] 1 applic VG DAILY 02/12/21 02/12/21 Lidocaine Patch 5% [Lidoderm Patch] 1 patch TOP DAILY PRN #10 patch 08/06/22 Meloxicam [Mobic] 7.5 mg PO BID 10 Days #20 tablet 08/06/22 Meloxicam [Mobic] 7.5 mg PO BID 10 Days #20 tablet 10/15/22 - Allergies Allergies/Adverse Reactions: Allergies Allergy/AdvReac Type Severity Reaction Status Date / Time morphine Allergy Intermediate Rash Verified 11/14/22 17:49 azithromycin Allergy Mild Nausea Verified 11/14/22 17:49 [From Zithromax Z-Cordell] Sulfa (Sulfonamide Allergy Rash Verified 11/14/22 17:49 Antibiotics) - Social History Does the pt smoke?: No Smoking Status: Former smoker Does the pt drink ETOH?: Yes Does the pt have substance abuse?: No - Immunizations Immunizations are current?: Yes - POLST Patient has POLST: No PD ED PE NORMAL - Vitals Vital signs reviewed: Yes - General General: Alert and oriented X 3, No acute distress, Well developed/nourished - HEENT HEENT: PERRL, Moist mucous membranes - Neck Neck: Supple, no meningeal sign - Cardiac Cardiac: RRR, No murmur, Strong equal pulses - Respiratory Respiratory: No respiratory distress, Clear bilaterally - Abdomen Abdomen: Soft, Non tender, Non distended - Back Back: No CVA TTP, No spinal TTP - Derm Derm: Warm and dry - Extremities Extremities: No deformity, No tenderness to palpate, Normal ROM s pain, No edema, No calf tenderness / cord - Neuro Neuro: Alert and oriented X 3 - Psych Psych: Normal mood, Normal affect Results - Vitals Vitals: Vital Signs - 24 hr 11/14/22 11/14/22 17:50 20:06 Temperature 36.5 C 36.4 C L Heart Rate 55 L 62 Respiratory 16 18 Rate Blood Pressure 150/86 H 193/91 H O2 Saturation 100 100 Oxygen O2 Source Room air - Labs Labs: Laboratory Tests 11/14/22 11/14/22 11/14/22 18:00 18:00 18:00 WBC 5.5 RBC 4.21 Hgb 13.2 Hct 40.1 MCV 95.2 MCH 31.4 H MCHC 32.9 RDW 12.9 Plt Count 241 MPV 9.2 Neut # (Auto) 2.7 Lymph # (Auto) 2.3 Lucas # (Auto) 0.4 Eos # (Auto) 0.1 Baso # (Auto) 0.0 Absolute Nucleated RBC 0.00 Nucleated RBC % 0.0 Sodium 137 Potassium 3.8 Chloride 103 Carbon Dioxide 30 Anion Gap 4.0 L BUN 16 Creatinine 0.8 Estimated GFR (MDRD) 73 L Glucose 82 Calcium 9.8 Total Bilirubin 0.4 AST 16 ALT 11 Alkaline Phosphatase 94 Total Protein 7.9 Albumin 4.5 Globulin 3.4 Albumin/Globulin Ratio 1.3 Lipase 40 Urine Color YELLOW Urine Clarity CLEAR Urine pH 5.5 Ur Specific [place] 1.020 Urine Protein NEGATIVE Urine Glucose (UA) NEGATIVE Urine Ketones NEGATIVE Urine Occult Blood NEGATIVE Urine Nitrite NEGATIVE Urine Bilirubin NEGATIVE Urine Urobilinogen 0.2 (NORMAL) Ur Leukocyte Esterase NEGATIVE Ur Microscopic Review NOT INDICATED Urine Culture Comments NOT INDICATED Nasal Adenovirus (PCR) Nasal B. parapertussis DNA (PCR) Nasal Coronavir 229E PCR Nasal Coronavir HKU1 PCR Nasal Coronavir NL63 PCR Nasal Coronavir OC43 PCR Nasal Enterovir/Rhinovir PCR Nasal Influenza B PCR Nasal Influenza A PCR Nasal Parainfluen 1 PCR Nasal Parainfluen 2 PCR Nasal Parainfluen 3 PCR Nasal Parainfluen 4 PCR Nasal RSV (PCR) Nasal B.pertussis DNA PCR Nasal C.pneumoniae (PCR) Federico Human Metapneumo PCR Nasal M.pneumoniae (PCR) Nasal SARS-CoV-2 (PCR) 11/14/22 18:25 WBC RBC Hgb Hct MCV MCH MCHC RDW Plt Count MPV Neut # (Auto) Lymph # (Auto) Lucas # (Auto) Eos # (Auto) Baso # (Auto) Absolute Nucleated RBC Nucleated RBC % Sodium Potassium Chloride Carbon Dioxide Anion Gap BUN Creatinine Estimated GFR (MDRD) Glucose Calcium Total Bilirubin AST ALT Alkaline Phosphatase Total Protein Albumin Globulin Albumin/Globulin Ratio Lipase Urine Color Urine Clarity Urine pH Ur Specific [place] Urine Protein Urine Glucose (UA) Urine Ketones Urine Occult Blood Urine Nitrite Urine Bilirubin Urine Urobilinogen Ur Leukocyte Esterase Ur Microscopic Review Urine Culture Comments Nasal Adenovirus (PCR) NOT DETECTED Nasal B. parapertussis DNA (PCR) NOT DETECTED Nasal Coronavir 229E PCR NOT DETECTED Nasal Coronavir HKU1 PCR NOT DETECTED Nasal Coronavir NL63 PCR NOT DETECTED Nasal Coronavir OC43 PCR NOT DETECTED Nasal Enterovir/Rhinovir PCR NOT DETECTED Nasal Influenza B PCR NOT DETECTED Nasal Influenza A PCR NOT DETECTED Nasal Parainfluen 1 PCR NOT DETECTED Nasal Parainfluen 2 PCR NOT DETECTED Nasal Parainfluen 3 PCR NOT DETECTED Nasal Parainfluen 4 PCR NOT DETECTED Nasal RSV (PCR) NOT DETECTED Nasal B.pertussis DNA PCR NOT DETECTED Nasal C.pneumoniae (PCR) NOT DETECTED Federico Human Metapneumo PCR NOT DETECTED Nasal M.pneumoniae (PCR) NOT DETECTED Nasal SARS-CoV-2 (PCR) NOT DETECTED - Rads (name of study) CT abdomen pelvis Relevant Findings:: Final report received, See rad report Chest x-ray Relevant Findings:: Final report received, See rad report PD Medical Decision Making - ED course Complexity details: reviewed results, re-evaluated patient, considered differential, d/w patient, d/w family ED course: 57-year-old female feeling generally unwell for the past 1 month. No significant lab abnormalities to explain her symptoms. No acute findings on respiratory PCR, urinalysis. CT does not show any acute abnormalities. Chest x-ray is without acute abnormality as well. She states that she is having some right hip pain and had received cortisone injections for this in the past. That could be the cause of her right lower abdominal/hip pain. Recommend that she follow-up with orthopedics to discuss a repeat injection as that seemed to help her last time. Patient is very well-appearing, nontoxic. Afebrile. No emerge ncy medical condition at this time. Patient counseled regarding signs and symptoms for which I believe and urgent re-evaluation would be necessary. Patient with good understanding of and agreement to plan and is comfortable going home at this time This document was made in part using voice recognition software. While efforts are made to proofread this document, sound alike and grammatical errors may occur. Departure - Departure Disposition: 01 Home, Self Care Clinical Impression: Abdominal pain Qualifiers: Abdominal location: unspecified location Qualified Code(s): R10.9 - Unspecified abdominal pain Condition: Good Instructions: ED Abdominal Pain Female Non-Specific Abdominal Pain Follow-Up: Your,doctor in 1 week [Other] Comments: Please follow-up with your doctor for further care. Your laboratory testing, CT scan and chest x-ray did not show any acute abnormalities. It is recommended that you see your orthopedist again for your hip pain. Please return if you worsen. Forms: PCP List Discharge Date/Time: 11/14/22 20:27
--- NOTE | 2022-11-14 19:26 | XRAY Report ---
PROCEDURE: Chest 2 View X-Ray INDICATIONS: chill, night sweats TECHNIQUE: 2 views of the chest were acquired. COMPARISON: None. FINDINGS: Surgical changes and devices: None. Lungs and pleura: No pleural effusions or pneumothorax. Lungs are clear. Mediastinum: Mediastinal contours appear normal. Heart size is normal. Bones and chest wall: No suspicious bony lesions. Overlying soft tissues appear unremarkable. IMPRESSION: No acute cardiopulmonary process. Reviewed by: Amrit Post MD on 11/14/2022 7:24 PM PDT Approved by: Amrit Post MD on 11/14/2022 7:24 PM PDT Station ID: [id number]
[2022-11-14] MEDS ORDERED: iohexoL-300 100 ML VIAL IVP ONE (19:27)
--- NOTE | 2022-11-14 19:48 | CT Report ---
PROCEDURE: ABDOMEN/PELVIS W INDICATIONS: RLQ abd pain CONTRAST: 100mL [id number] TECHNIQUE: After the administration of intravenous contrast, 5 mm thick sections acquired from the diaphragms to the symphysis. 5 mm thick coronal and sagittal reformats were acquired. For radiation dose reducti on, the following was used: automated exposure control, adjustment of mA and/or kV according to yenifer ent size. COMPARISON: CT KUB dated 07/19/2021 FINDINGS: Image quality: Excellent. Lung bases and heart: Unremarkable. Liver: No solid mass. Stable hepatic hypodensity in the caudate lobe likely representing a cyst. Gallbladder and biliary tree: No radiopaque stones or wall thickening. No biliary dilation. Spleen: No splenomegaly. Pancreas: No pancreatic ductal dilation. Adrenals: No adrenal nodule. Kidneys and ureters: No hydronephrosis. No renal cystic lesion which requires follow up. No solid mas s. Bilateral renal cysts. Bowel and peritoneum: No bowel distension. No pathologic free fluid. Appendix is not visualized but n o secondary findings for acute appendicitis. Lymph nodes: No central or retroperitoneal adenopathy. Vessels: No infrarenal aortic aneurysm. PELVIS Reproductive organs: Unremarkable. Bladder: No abnormal wall thickening, accounting for underdistension. Pelvic lymph nodes: No pelvic adenopathy by size criteria. Bones: No aggressive osseous abnormality. No acute compression fracture. Multilevel spondylosis. Other: No significant ventral or inguinal hernia. IMPRESSION: CT abdomen and pelvis without acute abnormalities to explain patient's right lower quadrant abdominal pain. The appendix is not definitively visualized; however, no secondary findings for acute appendic itis. Reviewed by: Amrit Post MD on 11/14/2022 7:47 PM PDT Approved by: Amrit Post MD on 11/14/2022 7:47 PM PDT Station ID: [id number]
[2022-11-14 19:51] LABS: B. PARAPERTUSSIS- RESP PCR PAN NOT DETECTED; B. PERTUSSIS- RESP PCR PANEL NOT DETECTED; C. PNEUMONIAE- RESP PCR PANEL NOT DETECTED; CORONAVIRUS 229E-RESP PCR NOT DETECTED; CORONAVIRUS HKU1-RESP PCR NOT DETECTED; CORONAVIRUS NL63-RESP PCR NOT DETECTED; CORONAVIRUS OC43-RESP PCR NOT DETECTED; HUMAN METAPNEUMOVIRUS NOT DETECTED; INFLUENZA A- RESP PCR PANEL NOT DETECTED; INFLUENZA B - RESP PCR PANEL NOT DETECTED; M. PNEUMONIAE- RESP PCR PANEL NOT DETECTED; PARAINFLUENZA VIRUS 1 NOT DETECTED; PARAINFLUENZA VIRUS 2 NOT DETECTED; PARAINFLUENZA VIRUS 3 NOT DETECTED; PARAINFLUENZA VIRUS 4 NOT DETECTED; RHINOVIRUS/ENTEROVIRUS NOT DETECTED; RSV- RESP PCR PANEL NOT DETECTED; SARS-CoV-2 -RESP PCR PANEL NOT DETECTED
[2022-11-14] MEDS ORDERED: ACETAMINOPHEN 325 MG TABLET PO STA (19:59)
[2022-11-14] MEDS ORDERED: ACETAMINOPHEN 500 MG TABLET PO STA (20:08)
[2022-11-14 20:09] VITALS: BP 193/91
== END 2022-11-14 20:27 | disposition home or self-care (01) ==
LOC: ED 17:47
DX: R10.31 Right lower quadrant pain (principal); Z20.822 Contact with and (suspected) exposure to COVID-19; Z87.891 Personal history of nicotine dependence
CPT/HCPCS: 36415; 71046; 74177; 80053; 81003; 83690; 85025; 87633; 99283; 99284; Q9967; 81001; 87086

== ENCOUNTER 2022-11-30 14:45 | Outpatient (CLI) | payer MEDICAID | END 2022-11-30 15:00 | disposition home or self-care (01) | LOC: LAB.N 14:45 | PROVIDERS: ATTEND Family Medicine | DX: R39.15 Urgency of urination (principal); R61 Generalized hyperhidrosis | CPT/HCPCS: 87086 ==

== ENCOUNTER 2022-12-12 08:29 | Outpatient (CLI) | payer MEDICAID ==
[2022-12-12 12:29] LABS: FERRITIN 133.7 ng/mL (11.0-306.8)
== END 2022-12-12 08:30 | disposition home or self-care (01) ==
LOC: LAB.N 08:29
PROVIDERS: ATTEND Registered Nurse
DX: D64.9 Anemia, unspecified (principal); R53.83 Other fatigue
CPT/HCPCS: 36415; 82306; 82607; 82728; 83540; 84466

== ENCOUNTER 2022-12-24 13:41 | Outpatient (CLI) | payer MEDICAID ==
[2022-12-24 18:37] LABS: THYROID STIMULATING HORMONE 4.03 uIU/mL (0.34-5.60)
== END 2022-12-24 13:42 | disposition home or self-care (01) ==
LOC: LAB.N 13:41
PROVIDERS: ATTEND Registered Nurse
DX: Z13.29 Encounter for screening for other suspected endocrine disorder (principal)
CPT/HCPCS: 36415; 84443

== ENCOUNTER 2023-02-15 12:15 | Outpatient (CLI) | payer MEDICAID ==
[2023-02-15 18:52] LABS: BASOPHILS % (AUTO) 0.5 %; EOSINOPHILS # (AUTO) 0.1 10^3/uL (0.0-0.7); EOSINOPHILS % (AUTO) 2.6 %; HCT - HEMATOCRIT 40.2 % (37.0-47.0); LYMPHOCYTES # (AUTO) 1.6 10^3/uL (1.5-3.5); LYMPHOCYTES % (AUTO) 40.4 %; MEAN CORPUSCULAR HEMOGLOBIN 31.4 pg (27.0-31.0); MEAN CORPUSCULAR HGB CONC 32.3 g/dL (32.0-36.0); MEAN CORPUSCULAR VOLUME 97.1 fL (81.0-99.0); MEAN PLATELET VOLUME 11.1 fL (7.9-10.8); MONOCYTES # (AUTO) 0.4 10^3/uL (0.0-1.0); MONOCYTES % (AUTO) 10.5 %; NEUTROPHILS # (AUTO) 1.8 10^3/uL (1.5-6.6); NEUTROPHILS % (AUTO) 45.7 %; PLT - PLATELET COUNT 259 10^3/uL (130-450); RED BLOOD COUNT 4.14 10^6/uL (4.20-5.40); RED CELL DISTRIBUTION WIDTH 12.9 % (12.0-15.0); WHITE BLOOD COUNT 3.9 x10^3/uL (4.8-10.8)
[2023-02-15 19:19] LABS: ALBUMIN 4.3 g/dL (3.2-5.5); ALBUMIN/GLOBULIN RATIO 1.4 (1.0-2.2); ALKALINE PHOSPHATASE 93 IU/L (42-121); ALT ALANINE AMINOTRANSFERASE 11 IU/L (10-60); AST ASPARTATE AMINOTRANSFERASE 16 IU/L (10-42); BILIRUBIN,TOTAL 0.5 mg/dL (0.2-1.0); BUN - BLOOD UREA NITROGEN 17 mg/dL (6-20); CALCIUM 9.4 mg/dL (8.5-10.3); CARBON DIOXIDE - CO2 28 mmol/L (21-32); CHLORIDE 105 mmol/L (101-111); CREATININE 0.7 mg/dL (0.6-1.3); CRP - C-REACTIVE PROTEIN < 0.5 mg/dL (<0.5); GFR - MDRD 86 (>89); GLUCOSE 87 mg/dL (74-104); POTASSIUM 4.3 mmol/L (3.5-4.5); SODIUM 138 mmol/L (135-145); TOTAL PROTEIN 7.4 g/dL (6.4-8.9)
[2023-02-15 19:22] LABS: TROPONIN I HIGH SENSITIVITY 3.1 ng/L (2.3-14.8)
== END 2023-02-15 12:16 | disposition home or self-care (01) ==
LOC: LAB.N 12:15
PROVIDERS: ATTEND Registered Nurse
DX: R07.89 Other chest pain (principal); R22.42 Localized swelling, mass and lump, left lower limb; I80.9 Phlebitis and thrombophlebitis of unspecified site
CPT/HCPCS: 36415; 80053; 84484; 85025; 85379; 86140

== ENCOUNTER 2023-02-18 07:56 | Outpatient (CLI) | payer MEDICAID ==
--- NOTE | 2023-02-18 11:39 | CT Report ---
PROCEDURE: HEAD WO INDICATIONS: CONCUSSION TECHNIQUE: Noncontrast 4.5 mm thick angled axial sections acquired from the foramen magnum to the vertex. For r adiation dose reduction, the following was used: automated exposure control, adjustment of mA and/or kV according to patient size. COMPARISON: None. FINDINGS: Image quality: Excellent. CSF spaces: Basal cisterns are patent. No extra-axial fluid collections. Ventricles are normal in size and shape. Brain: No midline shift. No intracranial masses or hemorrhage. Ibarra-white matter interface is norm al. Skull and face: Calvarium and visualized facial bones are intact, without suspicious lesions. Sinuses: Visualized sinuses and mastoids are clear. IMPRESSION: No acute intracranial pathology. Reviewed by: Tariq Hallman MD on 02/18/2023 11:37 AM [facility] Approved by: Tariq Hallman MD on 02/18/2023 11:37 AM [facility] Station ID: [id number]
== END 2023-02-18 07:57 | disposition home or self-care (01) ==
LOC: DI 07:56
PROVIDERS: ATTEND Emergency Medicine
DX: S06.0X0A Concussion without loss of consciousness, initial encounter (principal)

== ENCOUNTER 2023-02-20 20:55 | Outpatient (CLI) | payer MEDICAID ==
--- NOTE | 2023-02-21 19:20 | Ultrasound Report ---
PROCEDURE: Duplex Ext Veins Left INDICATIONS: LEFT LEG SWELLING TECHNIQUE: Real-time imaging, as well as color and pulse Doppler interrogation, were performed of th e lower extremity deep veins from the inguinal ligament to the popliteal fossa. Attempted visualizati on of the calf veins was performed. COMPARISON: None. FINDINGS: The deep veins are normally compressible, and free of intraluminal thrombus. Color and pu lse Doppler demonstrate normal phasic intraluminal flow. There is normal augmentation response to di stal compression maneuver. IMPRESSION: No deep venous thrombosis of the visualized lower extremity. Reviewed by: Shivam Glaser MD on 02/21/2023 6:18 PM [facility] Approved by: Shivam Glaser MD on 02/21/2023 6:18 PM [facility] Station ID: [id number]
== END 2023-02-20 20:56 | disposition home or self-care (01) ==
LOC: DI 20:55
PROVIDERS: ATTEND Registered Nurse
DX: R07.89 Other chest pain (principal); R22.42 Localized swelling, mass and lump, left lower limb; I80.3 Phlebitis and thrombophlebitis of lower extremities, unspecified

== ENCOUNTER 2023-03-18 11:33 | Emergency (ER) | payer MEDICAID ==
[2023-03-18 12:12] LABS: BASOPHILS % (AUTO) 0.7 %; EOSINOPHILS # (AUTO) 0.1 10^3/uL (0.0-0.7); EOSINOPHILS % (AUTO) 2.5 %; HCT - HEMATOCRIT 39.1 % (37.0-47.0); HGB - HEMOGLOBIN 12.8 g/dL (12.0-16.0); LYMPHOCYTES # (AUTO) 1.5 10^3/uL (1.5-3.5); MEAN CORPUSCULAR HEMOGLOBIN 31.5 pg (27.0-31.0); MEAN CORPUSCULAR HGB CONC 32.7 g/dL (32.0-36.0); MEAN CORPUSCULAR VOLUME 96.3 fL (81.0-99.0); MONOCYTES # (AUTO) 0.5 10^3/uL (0.0-1.0); MONOCYTES % (AUTO) 12.2 %; NEUTROPHILS # (AUTO) 1.9 10^3/uL (1.5-6.6); NEUTROPHILS % (AUTO) 46.4 %; PLT - PLATELET COUNT 210 10^3/uL (130-450); RED BLOOD COUNT 4.06 10^6/uL (4.20-5.40); RED CELL DISTRIBUTION WIDTH 12.5 % (12.0-15.0)
[2023-03-18 12:51] LABS: ALBUMIN 4.2 g/dL (3.2-5.5); ALBUMIN/GLOBULIN RATIO 1.6 (1.0-2.2); BILIRUBIN,TOTAL 0.3 mg/dL (0.2-1.0); CALCIUM 9.6 mg/dL (8.5-10.3); CREATININE 0.8 mg/dL (0.6-1.3); POTASSIUM 4.3 mmol/L (3.5-4.5); TOTAL PROTEIN 6.8 g/dL (6.4-8.9)
--- NOTE | 2023-03-18 13:09 | ED Physician Documentation ---
PD HPI CHEST PAIN - Stated complaint Stated Complaint: CHEST PX - Chief complaint Chief Complaint: Cardiac - History obtained from History obtained from: Patient - History of Present Illness Timing - onset: How many days ago (several days of feeling malaise and fatigue, some cough, and today developed some pain/pressure in chest with dyspnea. Has history of varicose veins in legs and superficial phlebitis. No prior CVT. Had US of left leg due to swelling about 4 weeks ago and was negative.) Timing - onset during: Light activity Timing - details: Gradual onset, Still present, Intermittant Quality: Pressure, Tightness Location: Substernal, Left chest Radiation: Back. No: Jaw, Neck Improved by: Rest Worsened by: Inspiration, Movement. No: Eating Associated symptoms: Shortness of air, Cough. No: Nausea, Vomiting, Feeling faint / dizzy Similar symptoms before: Has not had sx before Review of Systems Constitutional: denies: Fever, Chills Nose: reports: Congestion. denies: Rhinorrhea / runny nose Throat: reports: Sore throat Cardiac: reports: Chest pain / pressure (2 days intermittent). denies: Palpitations, Pedal edema, Calf pain Respiratory: reports: Dyspnea (feeling of inadequate breaths. No pain iwith direct breathing per se.), Cough Musculoskeletal: reports: Extremity swelling (has areas of varicose veins and sees BVascular surgeon in [place].) Neurologic: denies: Focal weakness, Numbness Psychiatric: reports: Anxiety, Insomnia. 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 : Incontinence, Nocturia, Frequency HEENT: None Psych: Anxiety Musculoskeletal: None Derm: None - Past Surgical History Past Surgical History: Yes General: Hiatal hernia repair Ortho: Other /CAMERA PROTOTYPING ENGINEER: section, 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, Other Cardiovascular: Vascular surgery Derm: Other - Present Medications Home Medications: Ambulatory Orders Medication Instructions Recorded Confirmed Multivitamin 1 each PO DAILY 02/12/21 02/12/21 Albuterol Sulf [Ventolin Hfa 2 - 3 puffs INH QID #1 each 03/18/23 Inhaler] Lifitegrast [Xiidra] 1 drops EACHEYE BID 03/18/23 03/18/23 PARoxetine [Paxil] 10 mg PO DAILY #30 tablet 03/18/23 Ubidecarenone [Co Q-10] 1 cap PO DAILY 03/18/23 03/18/23 dexAMETHasone [Decadron] 4 mg PO DAILY #5 tablet 03/18/23 traZODone [Desyrel] 50 mg PO HS PRN #5 tablet 03/18/23 - Allergies Allergies/Adverse Reactions: Allergies Allergy/AdvReac Type Severity Reaction Status Date / Time morphine Allergy Intermediate Rash Verified 03/18/23 14:13 azithromycin Allergy Mild Nausea Verified 03/18/23 14:13 [From Zithromax Z-Cordell] Sulfa (Sulfonamide Allergy Rash Verified 03/18/23 14:13 Antibiotics) clindamycin AdvReac Nausea Verified 03/18/23 14:14 - Social History Does the pt smoke?: No Smoking Status: Never smoker Does the pt drink ETOH?: Yes Does the pt have substance abuse?: No - Immunizations Immunizations are current?: Yes - POLST Patient has POLST: No PD ED PE NORMAL - Vitals Vital signs reviewed: Yes - General General: Alert and oriented X 3, No acute distress (but does seem anxious.), Well developed/nourished - HEENT HEENT: Ears normal, Moist mucous membranes, Pharynx benign - Neck Neck: Supple, no meningeal sign, No adenopathy - Cardiac Cardiac: RRR, No murmur - Respiratory Respiratory: No respiratory distress, Clear bilaterally (though decreased tidal volume. ), Other (no chestwall tenderness. ) - Abdomen Abdomen: Soft, Non tender - Derm Derm: Normal color, Warm and dry - Extremities Extremities: No tenderness to palpate, No edema, No calf tenderness / cord, Other (multiple varicosities. No calf tenderness nor swelling. No skin sores nor redness. NO areas of phlebitis noted. ) - Neuro Neuro: Alert and oriented X 3, No motor deficit, No sensory deficit, Normal speech Results - Vitals Vitals: Vital Signs - 24 hr 03/18/23 03/18/23 03/18/23 11:43 11:52 14:00 Temperature 37 C 36.6 C Heart Rate 66 69 66 Respiratory 16 14 14 Rate Blood Pressure 142/85 H 141/74 H 130/66 O2 Saturation 100 98 98 03/18/23 03/18/2323 14:30 14:34 15:00 Temperature Heart Rate 68 88 68 Respiratory 16 16 14 Rate Blood Pressure 136/66 H 128/68 O2 Saturation 96 98 03/18/23 03/18/23 03/18/23 15:30 15:36 15:56 Temperature 37.3 C 37 C Heart Rate 70 68 68 Respiratory 14 14 Rate Blood Pressure 136/66 H 133/69 H 133/69 H O2 Saturation 98 98 Oxygen O2 Source Room air - EKG (time done) 11:52 EKG releavant findings:: EKG personally interpreted by author of this note. Relevant findings are: Rate: Rate (enter#) (63) Rhythm: NSR [place]: Normal Intervals: Normal [place] QRS: Normal Ischemia: Normal ST segments. No: ST elevation c/w ischemia, ST depression - Labs Labs: Laboratory Tests 03/18/23 03/18/23 03/18/23 12:05 12:05 12:05 WBC 4.0 L RBC 4.06 L Hgb 12.8 Hct 39.1 MCV 96.3 MCH 31.5 H MCHC 32.7 RDW 12.5 Plt Count 210 MPV 9.0 Neut # (Auto) 1.9 Lymph # (Auto) 1.5 [place] # (Auto) 0.5 Eos # (Auto) 0.1 Baso # (Auto) 0.0 Absolute Nucleated RBC 0.00 Nucleated RBC % 0.0 Sodium 138 Potassium 4.3 Chloride 103 Carbon Dioxide 31 Anion Gap 4.0 L BUN 16 Creatinine 0.8 Estimated GFR (MDRD) 73 L Glucose 77 Calcium 9.6 Magnesium 1.7 Total Bilirubin 0.3 AST 15 ALT 12 Alkaline Phosphatase 98 Troponin I High Sens 2.6 Total Protein 6.8 Albumin 4.2 Globulin 2.6 Albumin/Globulin Ratio 1.6 Lipase 57 TSH 4.00 - Rads (name of study) chest xray Relevant Findings:: Prelim report reviewed, EMP independent interpretation of test (no acute findings. ) PD Medical Decision Making - ED course Complexity details: reviewed results (CXR and ECG are normal. Trop and Chemi stries with CBC, lipase are normal. ), re-evaluated patient (improved breathing with albuterol neb. Teaching of spacer by RT. Discussed with her the less sleep due to anxiety and life stresses, and poor sleep could be augmenting the symptoms. Otherwise mostly the recent/current URI with caough and fatigue are the most likely culprits. ), considered differential (has had some fatigue, malaise, cough and now with chest tightness and some pressure/pain. Can get ECG, CXR, and labs to include CRP/Trop?BNP/TSH.), d/w patient Departure - Departure Disposition: 01 Home, Self Care Clinical Impression: Dyspnea, Chest tightness, Anxiety Condition: Stable Record reviewed to determine appropriate education?: Yes Instructions: ED Dyspnea Shortness of Breath Prescriptions: dexAMETHasone [Decadron] 4 mg PO DAILY #5 tablet traZODone [Desyrel] 50 mg PO HS PRN #5 tablet PRN Reason: Insomnia PARoxetine [Paxil] 10 mg PO DAILY #30 tablet Albuterol Sulf [Ventolin Hfa Inhaler] 2 - 3 puffs INH QID #1 each Comments: Your EKG as well as the blood test to look at signs of heart injury or heart failure are negative. Your chest x-ray is clear without any signs of pneumonia. I presume your symptoms are more bronchial with the cough and some trouble breathing. You did seem to have some improvement with the inhaler. We can carry on the inhaler 2 to 3 puffs 4 times daily for the next several days to week and then to as needed. Presuming some bronchial inflammation causing this, I would also add Decadron steroid low-dose daily for 3 to 5 days. See what type of Excedrin you are using at home if it is just plain aspirin or if it has caffeine as well and to switch to regular aspirin if it does have caffeine. He can continue with aspirin 325 to 650 mg 2 or 3 times daily if needed for discomfort. To that you can add Tylenol 500 to 650 mg 4 times daily if needed for discomfort as well. It does sound like there is a element of anxiety as well been going on. As we discussed you could restart Paxil at a low dose initially and follow-up with your primary care regarding progression or increased dose of that. For sleep, you could try antihistamine such as Benadryl or even 1 or 2 cetirizine/Zyrtec as that could have a similar effect with not quite as sedating as Benadryl. You could add or instead use melatonin. If he found those ineffective, I also wrote for a sleep federal aid coordinator called trazodone. You could use 1/2 to 1 tablet at night if needed for sleep. Follow-up with your primary care. I sent your prescriptions to your preferred pharmacy[facility]. Forms: PCP List Discharge Date/Time: 03/18/23 15:56
--- NOTE | 2023-03-18 13:19 | XRAY Report ---
PROCEDURE: Chest 1 View X-Ray INDICATIONS: Chest pain TECHNIQUE: One view of the chest was acquired. COMPARISON: None. FINDINGS: Surgical changes and devices: None. Lungs and pleura: No pleural effusions or pneumothorax. Lungs are clear. Mediastinum: Mediastinal contours appear normal. Heart size is normal. Bones and chest wall: No suspicious bony lesions. Overlying soft tissues appear unremarkable. IMPRESSION: No acute cardiopulmonary process. Reviewed by: Justyna Farley MD, PhD on 03/18/2023 1:18 PM [facility] Approved by: Justyna Farley MD, PhD on 03/18/2023 1:18 PM [facility] Station ID: [id number]
[2023-03-18 13:29] LABS: TROPONIN I HIGH SENSITIVITY 2.6 ng/L (2.3-14.8)
[2023-03-18] MEDS ORDERED: ALBUTEROL 1 PUFF INH STA (14:05)
[2023-03-18 14:14] VITALS: O2SAT 98
[2023-03-18 14:27] LABS: MAGNESIUM 1.7 mg/dL (1.7-2.3)
[2023-03-18 15:38] VITALS: BP 133/69
== END 2023-03-18 15:56 | disposition home or self-care (01) ==
LOC: ED 11:33
DX: R07.89 Other chest pain (principal); R06.09 Other forms of dyspnea; F41.9 Anxiety disorder, unspecified
CPT/HCPCS: 36415; 80053; 82306; 83690; 83735; 84443; 84484; 85025; 93005; 94640; 99284

== ENCOUNTER 2023-04-26 15:12 | Outpatient (CLI) | payer MEDICAID ==
--- NOTE | 2023-04-26 16:51 | XRAY Report ---
PROCEDURE: Cervical Spine 2-3V INDICATIONS: NECK PAIN TECHNIQUE: 3 view(s) of the cervical spine were acquired. COMPARISON: None. FINDINGS: Bones: No fractures or dislocations to the T1 level. The lateral masses of C1 appear intact on the odontoid view. No suspicious bony lesions. Mild disc disease with osteophyte formation most promine nt at C5-C6 and C6-C7. Soft tissues: No prevertebral soft tissue swelling. IMPRESSION: No displaced fracture or traumatic subluxation. Mild cervical spondylosis. Reviewed by: Obey Simms MD on 04/26/2023 3:50 PM [facility] Approved by: Obey Simms MD on 04/26/2023 3:50 PM [facility] Station ID: [id number]
== END 2023-04-26 15:13 | disposition home or self-care (01) ==
LOC: DI 15:12
PROVIDERS: ATTEND Physician Assistant Medical
DX: M47.812 Spondylosis without myelopathy or radiculopathy, cervical region (principal)

== ENCOUNTER 2023-05-14 16:38 | Emergency (ER) | payer MEDICAID ==
--- NOTE | 2023-05-14 19:16 | CT Report ---
PROCEDURE: Cervical Spine WO INDICATIONS: neck pain/strain TECHNIQUE: Noncontrast 3 mm thick sections acquired from the skull base to the T4 level. Sagittal and coronal r eformats were then constructed. Dedicated oblique axial images were performed through the disk leve ls. For radiation dose reduction, the following was used: automated exposure control, adjustment o f mA and/or kV according to patient size. COMPARISON: Correlation is made with prior plain films, 04/26/2023. FINDINGS: Image quality: Excellent. Bones: No fractures or dislocations. Visualized superior ribs are intact. Moderate disc space narrowing can be seen at C5-C6 and C6-C7, with associated endplate irregularity a nd sclerosis. Milder degenerative changes are seen elsewhere. Soft tissues: Prevertebral soft tissues are normal in thickness. No paravertebral hematomas. No ap ical pneumothoraces. IMPRESSION: No acute abnormality can be seen by CT. Focal lower cervical spine degenerative changes can be seen. If it would be helpful for clinical management decision making, please consider a dedicated cervical spine MRI for further evaluation (assuming that there is no contraindication). Reviewed by: Vladimir Azar MD on 05/14/2023 6:15 PM [place] Approved by: Vladimir Azar MD on 05/14/2023 6:15 PM [facility] Station ID: [id number]
--- NOTE | 2023-05-14 19:22 | ED Physician Documentation ---
History of Present Illness - Stated complaint Stated Complaint: NECK PX/BLURRY VISION LT SIDE - Chief complaint Chief Complaint: Trauma Hd/Nk - History obtained from History obtained from: Patient - Additonal information Additional information: 57-year-old female presents emergency department after 1 month of chronic neck pain. Patient reports that she was lifting up a wheelchair when she heard a loud popping sensation to the right side of her neck since then she has been guarding and not using her neck as she normally does because she has been hearing a popping clicking noise. Patient also reports she has been having some blurred vision she presented to her supply planner who recommended eyedrops and told her to come to the emergency department for further evaluation of her neck pain. Patient also reports that she has been having a different taste in her mouth that she describes as better that she plans on following up with her dentist about soon. 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 No new injury to her neck she did have plain films completed which revealed basic arthritis. No fevers or chills pain has not worsened and has just not gone away. 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 : Incontinence, Nocturia, Frequency HEENT: None Psych: Anxiety Musculoskeletal: Osteoarthritis Derm: None - Past Surgical History Past Surgical History: Yes General: Hiatal hernia repair Ortho: Spine surgery, Other /ASSISTANT BUSINESS MANAGER: section, 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, Other Cardiovascular: Vascular surgery Derm: Other - Present Medications Home Medications: Ambulatory Orders Medication Instructions Recorded Confirmed Multivitamin 1 each PO DAILY 02/12/21 05/14/23 Ubidecarenone [Co Q-10] 1 cap PO DAILY 03/18/23 05/14/23 - Allergies Allergies/Adverse Reactions: Allergies Allergy/AdvReac Type Severity Reaction Status Date / Time morphine Allergy Intermediate Rash Verified 05/14/23 16:46 azithromycin Allergy Mild Nausea Verified 05/14/23 16:46 [From Zithromax Z-Cordell] Sulfa (Sulfonamide Allergy Rash Verified 05/14/23 16:46 Antibiotics) clindamycin AdvReac Nausea Verified 05/14/23 16:46 - Social History Does the pt smoke?: No Smoking Status: Former smoker Does the pt drink ETOH?: Yes Does the pt have substance abuse?: No - Immunizations Immunizations are current?: Yes - POLST Patient has POLST: No PD ED PE NORMAL - Vitals Vital signs reviewed: Yes - General General: Alert and oriented X 3, No acute distress, Well developed/nourished - HEENT HEENT: Atraumatic, PERRL - Neck Neck: Supple, no meningeal sign, No bony TTP, No adenopathy, No JVD - Cardiac Cardiac: RRR, No murmur - Respiratory Respiratory: No respiratory distress - Neuro Neuro: Alert and oriented X 3 Eye Opening: Spontaneous Motor: Abnormal Extension Verbal: Oriented GCS Score: 11 - Psych Psych: Normal mood Results - Vitals Vitals: Vital Signs - 24 hr 05/14/23 05/14/23 16:46 19:39 Temperature 36.8 C Heart Rate 61 65 Respiratory 18 15 Rate Blood Pressure 179/97 H 170/89 H O2 Saturation 99 98 Oxygen O2 Source Room air - Rads (name of study) Cervical CT Relevant Findings:: Final report received, EMP independent interpretation of test (No fractures or other acute abnormalities or findings of the C-spine) PD Medical Decision Making - ED course ED course: 57-year-old female presents emergency department today for ongoing C-spine tenderness and pain patient reports that she is adamant that something is wrong with her she absolutely needs a CT scan. Patient says that she is worried about an arterial bleed or synovial fluid leak. When she was explained that neither of these things were a possibility she said that she still felt confident that she needed a CT scan of her C-spine. C-spine was complete without any acute findings or abnormalities patient was told that she needs to work on doing some gentle range of motion exercises to her neck as she seen clenched in a tight position with her right neck bent towards her right shoulder patient says that she knows she feels like she is guarding but she is just worried that her neck is broken. Patient reassured multiple times that her neck is not broken CT scan is also reassuring she is told to follow-up with her dentist about the possible abnormal bitter taste in her mouth I am not able to see any abscesses or infections at her mouth at this time but a better assessment from a dentist would be warranted for patient's concerning taste in her mouth. All questions answered return precautions given patient safe for discharge at this time. Departure - Departure Disposition: 01 Home, Self Care Clinical Impression: Cervical strain Qualifiers: Encounter type: initial encounter Qualified Code(s): S16.1XXA - Strain of muscle, fascia and tendon at neck level, initial encounter Instructions: Exercises Neck Passive Rotation, ED Neck Pain No Trauma Comments: Thank you for trusting us with your care we have completed a neck CT and the results have come back within normal limits. As we discussed I believe that you are holding a lot of tension and guarding of that right neck make sure that you are being cognizant of relaxing the muscles around your neck and shoulders and doing some gentle range of motion exercises to your neck. Follow-up with your student development specialist at your scheduled appointment please come back to the emergency department if you are having any worsening symptoms, severe dizziness, nausea vomiting, weakness, or any other concerning symptoms. Forms: PCP List Discharge Date/Time: 05/14/23 19:39
[2023-05-14] MEDS: ACETAMINOPHEN 325 MG TABLET PO STA (19:28)
[2023-05-14 19:48] VITALS: BP 170/89; O2SAT 98
== END 2023-05-14 19:39 | disposition home or self-care (01) ==
LOC: ED 16:38
DX: S16.1XXA Strain of muscle, fascia and tendon at neck level, initial encounter (principal); X50.9XXA Other and unspecified overexertion or strenuous movements or postures, initial encounter; Z86.73 Personal history of transient ischemic attack (TIA), and cerebral infarction without residual deficits; Z79.899 Other long term (current) drug therapy; Z87.891 Personal history of nicotine dependence
CPT/HCPCS: 99283; 99284

== ENCOUNTER 2023-06-18 15:45 | Outpatient (CLI) | payer MEDICAID | END 2023-06-18 16:00 | disposition home or self-care (01) | LOC: LAB.N 15:45 | PROVIDERS: ATTEND Physician Assistant Medical | DX: R82.998 Other abnormal findings in urine (principal) | CPT/HCPCS: 87086 ==

== ENCOUNTER 2023-07-01 15:01 | Emergency (ER) | payer MEDICAID ==
--- NOTE | 2023-07-01 15:28 | ED Physician Documentation ---
PD HPI UPPER EXT INJURY - Stated complaint Stated Complaint: LT SHOULDER POPPING - Chief complaint Chief Complaint: Ext Problem - History obtained from History obtained from: Patient - Additonal information Additional information: Few months ago she was lifting a wheelchair and fell backwards on her and she injured her neck and left shoulder. She was seen here and had cervical spine imaging done on 14 May for this issue. The CT of the cervical spine was negative for acute trauma. She continues to have neck pain but is also having a lot of left shoulder pain and popping worse with motion. Tylenol and Celebrex have been insufficient for her severe pain. 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: None : Incontinence, Nocturia, Frequency HEENT: None Psych: Anxiety Musculoskeletal: Osteoarthritis Derm: None - Past Surgical History Past Surgical History: Yes General: Hiatal hernia repair Ortho: Spine surgery, Other /BARBER: section, 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, Other Cardiovascular: Vascular surgery Derm: Other - Present Medications Home Medications: Ambulatory Orders Medication Instructions Recorded Confirmed Multivitamin 1 each PO DAILY 02/12/21 05/14/23 Ubidecarenone [Co Q-10] 1 cap PO DAILY 03/18/23 05/14/23 oxyCODONE [Roxicodone] 5 mg PO Q4-6H PRN #15 tablet 07/01/23 - Allergies Allergies/Adverse Reactions: Allergies Allergy/AdvReac Type Severity Reaction Status Date / Time morphine Allergy Intermediate Rash Verified 07/01/23 15:05 azithromycin Allergy Mild Nausea Verified 07/01/23 15:05 [From Zithromax Z-Cordell] Sulfa (Sulfonamide Allergy Rash Verified 07/01/23 15:05 Antibiotics) clindamycin AdvReac Nausea Verified 07/01/23 15:05 - Social History Does the pt smoke?: No Smoking Status: Never smoker Does the pt drink ETOH?: Yes Does the pt have substance abuse?: No - Immunizations Immunizations are current?: Yes - POLST Patient has POLST: No PD ED PE NORMAL - Vitals Vital signs reviewed: Yes - General General: Alert and oriented X 3, No acute distress - HEENT HEENT: PERRL, EOMI - Neck Neck: Supple, no meningeal sign, No bony TTP - Extremities Extremities: Other (Left shoulder is nontender. I do not feel any crepitus. She does have pain with abduction more than 90 degrees.) - Neuro Neuro: Alert and oriented X 3, Normal speech Results - Vitals Vitals: Vital Signs - 24 hr 07/01/23 07/01/23 15:05 16:02 Temperature 36.8 C Heart Rate 78 74 Respiratory 16 20 Rate Blood Pressure 140/90 H 152/94 H O2 Saturation 100 97 Oxygen O2 Source Room air - Rads (name of study) X-ray of the left shoulder demonstrates mild degenerative changes Relevant Findings:: Final report received, EMP independent interpretation of test PD Medical Decision Making - ED course ED course: 57-year-old has subacute to chronic left shoulder pain after an accident 3 months ago and here for imaging and pain control. No emergency medical condition is present. Departure - Departure Disposition: 01 Home, Self Care Clinical Impression: Acromioclavicular joint arthritis Condition: Good Record reviewed to determine appropriate education?: Yes Instructions: Arthritis Acromioclavicular Prescriptions: oxyCODONE [Roxicodone] 5 mg PO Q4-6H PRN #15 tablet PRN Reason: Pain Comments: I do not see any signs of trauma on the x-ray. You do have some arthritic changes of your acromioclavicular joint, but does not really where your pain is per se. Otherwise I think it is appropriate to follow through with the referral to orthopedics as is being planned. Return for new or worsening symptoms. I sent your prescription electronically to the [facility] in [place]. You can continue Celebrex and Tylenol along with the prescription pain medication. I am prescribing a short course of narcotic pain medication for you. These are potentially dangerous and addictive medications that should be used carefully. These medications may constipate you. Take an [id number] stool softener (docusate) twice daily with plenty of water while taking these medications. If you go 24 hours without a bowel movement, take [id number] miralax, per package instructions. Do not drink or drive while taking these medications. If you received narcotic or sedating medications while in the emergency de partment, do not drive for 24 hours. Store this medication in a safe, secure place and out of reach of children. It is a violation of federal law to give or sell this medication to another person or to use in a manner other than prescribed. The ED will not refill narcotic prescriptions, including prescriptions lost or stolen. To dispose of unwanted medications: 1. [facility] provides a drop box for medication in pill form only (no liquids) 8:00 am to 4:30 p.m. Friday-Friday in the lobby of the [facility] [place], [address] [place] [address]. Empty pills into ziplock bag b efore disposal. Call [phone] for information. 2.[employer] is a free service available to all [facility] residents. Go to [email or web address] Note that many narcotic pain relievers also contain Tylenol/acetaminophen. Please ensure that your total dose of acetaminophen from all sources does not exceed 3 g (3000 mg) per day. Forms: PCP List Discharge Date/Time: 07/01/23 16:04
[2023-07-01 16:04] VITALS: BP 152/94; O2SAT 97
--- NOTE | 2023-07-01 16:11 | XRAY Report ---
PROCEDURE: Shoulder 2+V LT INDICATIONS: shoulder inj TECHNIQUE: 3 views of the shoulder were acquired. COMPARISON: 07/15/2017 FINDINGS: Bones: No displaced fracture or dislocation. Mild glenohumeral and acromioclavicular degenerative ch anges. Soft tissues: No suspicious calcifications. IMPRESSION: No acute radiographic abnormality. Mild degenerative changes. If there is high concern for occult inj ury, consider repeat radiography or cross-sectional imaging. Reviewed by: Randall Garza MD on 07/01/2023 4:10 PM PDT Approved by: Randall Garza MD on 07/01/2023 4:10 PM PDT Station ID: [id number]
== END 2023-07-01 16:04 | disposition home or self-care (01) ==
LOC: ED 15:01
DX: M13.812 Other specified arthritis, left shoulder (principal); W18.30XA Fall on same level, unspecified, initial encounter; Z86.718 Personal history of other venous thrombosis and embolism
CPT/HCPCS: 99283; 99284

== ENCOUNTER 2023-09-16 12:45 | Outpatient (CLI) | payer MEDICAID ==
--- NOTE | 2023-09-16 21:36 | XRAY Report ---
PROCEDURE: Chest 2V INDICATIONS: COUGH TECHNIQUE: 2 views of the chest were acquired. COMPARISON: 03/18/2023. FINDINGS: Surgical changes and devices: None. Lungs and pleura: No pleural effusions or pneumothorax. Lungs are clear. Mediastinum: Mediastinal contours appear normal. Heart size is normal. Bones and chest wall: No suspicious bony lesions. Overlying soft tissues appear unremarkable. IMPRESSION: No acute cardiopulmonary process. Reviewed by: Porter Thrasher MD on 09/16/2023 9:35 PM PDT Approved by: Porter Thrasher MD on 09/16/2023 9:35 PM PDT Station ID: [id number]
== END 2023-09-16 15:37 | disposition home or self-care (01) ==
LOC: DI.N 12:45
PROVIDERS: ATTEND Family Medicine
DX: R05.9 Cough, unspecified (principal)

== ENCOUNTER 2023-09-29 12:27 | Outpatient (CLI) | payer MEDICAID ==
--- NOTE | 2023-09-29 13:56 | XRAY Report ---
PROCEDURE: Cervical Spine w/Flex/Ext 6+V INDICATIONS: NECK PAIN TECHNIQUE: 7 views of the cervical spine were acquired. COMPARISON: 05/14/2023 FINDINGS: Bones: No fractures or dislocations to the C7-T1 level. No suspicious bony lesions. Multilevel mil d to moderate disc space narrowing is present most severe at C5-6 and C6-7 with small anterior osteop hytes. Ultimately level uncovertebral arthropathy is present. Mild left foraminal narrowing is presen t at C6-7. There is normal range of motion between flexion and extension, with preserved normal bony alignment. Soft tissues: Prevertebral soft tissues are normal in thickness. IMPRESSION: Degenerative changes most prominent at C5-6 and C6-7, relatively unchanged. Reviewed by: Lizbeth Delgadillo MD on 09/29/2023 1:54 PM PDT Approved by: Lizbeth Delgadillo MD on 09/29/2023 1:54 PM PDT Station ID: [id number]
== END 2023-09-29 12:28 | disposition home or self-care (01) ==
LOC: DI 12:27
PROVIDERS: ATTEND Registered Nurse
DX: M47.812 Spondylosis without myelopathy or radiculopathy, cervical region (principal)

== ENCOUNTER 2023-10-20 15:15 | Outpatient (CLI) | payer MEDICAID ==
--- NOTE | 2023-10-20 16:24 | XRAY Report ---
PROCEDURE: Chest 2V INDICATIONS: PRODUCTIVE COUGH, PURULENT SPUTUM TECHNIQUE: 2 views of the chest were acquired. COMPARISON: None. FINDINGS: Surgical changes and devices: None. Lungs and pleura: No pleural effusions or pneumothorax. Lungs are clear. Mediastinum: Mediastinal contours appear normal. Heart size is normal. Bones and chest wall: No suspicious bony lesions. Overlying soft tissues appear unremarkable. IMPRESSION: No acute cardiopulmonary process. Reviewed by: Lexx Mann MD on 10/20/2023 4:22 PM PDT Approved by: Lexx Mann MD on 10/20/2023 4:22 PM PDT Station ID: [id number]
== END 2023-10-20 15:30 | disposition home or self-care (01) ==
LOC: DI.N 15:15
PROVIDERS: ATTEND Nurse Practitioner
DX: R05.8 Other specified cough (principal)